=== PATIENT | male | born 2005 | race Caucasian/White ===

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

== ENCOUNTER → 2025-08-05 | Outpatient (CLI) | payer BC, SELFPAY ==
[2025-08-05 18:01] LABS: Hematocrit 46.0 % (40-54); Hemoglobin 15.3 g/dL (13.0-16.5); Mean Corp Hgb Conc 33.3 g/dL (32-36); Mean Corpuscular Volume 91.3 fL (80-94); Mean Platelet Vol. 10.7 fl (6.2-12.0); Platelet Count 213 K/mm3 (150-450); RBC Distribution Width CV 12.0 % (11.6-14.6); RBC Distribution Width SD 40.1 fl (35.1-43.9); Red Blood Count 5.04 M/mm3 (4.6-6.2); White Blood Count 6.7 K/mm3 (4.4-11.0)
[2025-08-05 18:19] LABS: AST(SGOT) 17 U/L (<=37); Alanine Aminotransfer ALT/SGPT 10 U/L (<=46); Albumin, Serum 4.6 g/dL (3.5-5.0); Alkaline Phosphatase 31 U/L (40-129); Anion Gap 12 (5-15); BUN 14 mg/dL (4-19); BUN/Creat Ratio 13.7 RATIO (10-20); Calcium,Total 9.3 mg/dL (7.6-11.0); Carbon Dioxide 23.5 mmol/L (21.0-32.0); Chloride 105 mmol/L (98-108); Globulin 2.5 g/dL (2.2-4.2); Glucose 85 mg/dL (70-99); Potassium 4.2 mmol/L (3.3-5.1)
--- OUTSIDE RECORDS SUMMARY | 2025-08-05 18:21 | XMS RPT_ITS | CCD ---
Author Organization [facility] Care Team Providers Care Deburring Technician Name Role Phone Luis Norwood DO Primary Care Provider [phone] LUIS NORWOOD Primary Care Unavailable KOTAGAL, RAVINDER Referring Unavailable Luis Norwood DO Primary Care Provider Luis Norwood DO Primary Care Provider Dr. Luis Norwood DO Primary Care Provider Dr. Vasiliy Diaz MD Attending Provider Dr. Vasiliy Diaz MD Referring Provider Dr. Luis Norwood DO Referring Provider Luis Norwood Referring Unavailable Norwood, Luis Primary Care Unavailable Vasiliy Diaz Attending Unavailable Cuco, Luis Primary Care Unavailable Vasiliy Diaz Referring Unavailable Vasiliy Diaz Attending Unavailable Vasiliy Diaz Attending Unavailable Norwood, Luis Primary Care Unavailable Vasiliy Diaz Referring Unavailable NorwoodLuis richardson Referring Unavailable Norwood, Luis Primary Care Unavailable Vasiliy Diaz Attending Unavailable Vasiliy Diaz Attending Unavailable Norwood, Luis Primary Care Unavailable Norwood, Luis Referring Unavailable Shane SOCIOCULTURAL ANTHROPOLOGY PROFESSOR.Destinee TAYLOR Unavailable Solange SOCIOCULTURAL ANTHROPOLOGY PROFESSORFatuma DEL VALLE Unavailable KOTAGAL, RAVINDER Referring Unavailable NORWOOD, LUIS L Primary Care Unavailable KOTAGAL, RAVINDER Attending Unavailable NORWOOD, LUIS L Primary Care Unavailable FREIBERWILLIAMS Mejía Attending Unavailable LUIS NORWOOD L Primary Care Unavailable Allergies Allergy Classification Reported Allergen(s) Allergy Type Date of Onset Reaction(s) Facility (20 sources) Sunscreen; Translations: [SUNSCREEN] Drug Allergy 04-04-2017 Rash, Itching [facility] Work Phone: Medications Current Medications Medication Drug Class(es) Dates Sig (Normalized) Sig (Original) cenobamate 100 mg oral tablet (3 sources) Start: 11-13-2024 End: 02-07-2025 take 1 tablet by mouth once daily Cenobamate (Xcopri) 100 mg tablet Active 100 mg PO DAILY February 07, 2025 3:28pm enteric contrast (will be provided with radiology test) (2 sources) Start: 11-16-2022 End: 11-17-2022 enteric contrast (will be provided with radiology test) For MRI ENTEROGRAPHY WO/W Administer, As Directed One Time Only, via Oral, Rectal, both Oral and Rectal, Enteric Tube, Stoma or Indwelling Catheter, Enteric Contrast as designated per enteric contrast guidelines 1 Each 0 11/16/2022 11/17/2022 Active Comment on above: For MRI ENTEROGRAPHY WO/W Administer, As Directed One Time Only, via Oral, Rectal, both Oral and Rectal, Enteric Tube, Stoma or Indwelling Catheter, Enteric Contrast as designated per enteric contrast guidelines iv contrast (will be provided with radiology test) (2 sources) Start: 11-16-2022 End: 11-17-2022 iv contrast (will be provided with radiology test) MRI Enterography Inject, intravenously, once for 1 dose. No IV access, insert saline lock prior to the beginning of sedation, infusion, injection of imaging exam. Discontinue saline lock post exam. If Pt. has a central line or IVAD, may access for administration according to line specific nursing protocol. Once exam is complete flush line and de-access according to line specific nursing protocol in the MR contrast administration guidelines link. 1 Each 0 11/16/2022 11/17/2022 Active Comment on above: MRI Enterography Inject, intravenously, once for 1 dose. No IV access, insert saline lock prior to the beginning of sedation, infusion, injection of imaging exam. Discontinue saline lock post exam. If Pt. has a central line or IVAD, may access for administration according to line specific nursing protocol. Once exam is complete flush line and de-access according to line specific nursing protocol in the MR contrast administration guidelines link. mesalamine 1200 mg delayed release oral tablet (20 sources) Aminosalicylate Start: 01-09-2024 End: 01-11-2024 take 4 tablets by mouth once daily at breakfast Mesalamine (LIALDA) 1.2 gram EC tablet Take 4 tablets by mouth daily with breakfast. 120 tablet 2 01/11/2024 Active Start: 12-07-2022 take 4 tablets by mo uth once daily at breakfast Mesalamine (LIALDA) 1.2 gram EC tablet Take 4 tablets by mouth daily with breakfast. 120 tablet 5 12/07/2022 Active Start: 11-16-2022 End: 12-05-2022 take 4 tablets by mouth once daily at breakfast Mesalamine (LIALDA) 1.2 gram EC tablet Take 4 tablets by mouth daily with breakfast. 60 tablet 1 11/16/2022 12/05/2022 Discontinued Start: 11-16-2022 End: 11-16-2022 take 2 tablets by mouth once daily at breakfast Mesalamine (LIALDA) 1.2 gram EC tablet Take 2 tablets by mouth daily with breakfast. 60 tablet 3 11/16/2022 11/16/2022 Discontinued Comment on above: Take 4 tablets by mo uth daily with breakfast. Take 2 tablets by mo uth daily with breakfast. divalproex sodium 250 mg delayed release oral tablet (20 sources) Mood Stabilizer, Anti-epileptic Agent Start: 04-07-2023 End: 02-07-2025 take 3 tablets by mouth twice daily divalproex DR (DEPAKOTE) 250 mg EC tablet Indications: Juvenile absence epilepsy (HCC) Take 3 tablets by mouth two times a day. 540 tablet 3 05/08/2024 Active Start: 03-03-2023 take 2 tablets by mo uth every [address] (DEPAKOTE) 250 mg EC tablet Take 2 tablets by mouth every 8 hours. 120 tablet 5 03/03/2023 Active Comment on above: Take 2 tablets by mo uth every 8 hours. Take 3 tablets by mo uth twice daily. Take 3 tablets by mo uth two times a day. Completed/Discontinued Medications Medication Drug Class(es) Dates Sig (Normalized) Sig (Original) Cenobamate (2 sources) Start: 11-13-2024 End: 02-07-2025 take 1 tablet by mouth once Cenobamate (Xcopri Titration Pack) 12.5 mg (14)- 25 mg (14) tablets,dose pack Discontinued 0 PO per package directions November 13, 2024 1:00am February 07, 2025 3:27pm Week 1 to 4: PO PER PKG DIR Start: 11-13-2024 take 1 tablet by mouth once Ce nobamate (Xcopri Titration Pack) 12.5 mg (14)- 25 mg (14) tablets,dose pack Active 0 PO per package directions November 13, 2024 1:00am Week 1 to 4: PO PER PKG DIR Cenobamate (2 sources) Start: 11-13-2024 End: 02-07-2025 Cenobamate (Xcopri Titration Pack) 50 mg (14)- 100 mg (14) tablets,dose pack Discontinued 0 PO per package directions November 13, 2024 1:00am February 07, 2025 3:28pm PO PER PKG DIR; began after completing 2-week course of Xcopri 25 mg daily Start: 11-13-2024 Cenobamate (Xc opri Titration Pack) 50 mg (14)- 100 mg (14) tablets,dose pack Active 0 PO per package directions November 13, 2024 1:00am PO PER PKG DIR; began after completing 2-week course of Xcopri 25 mg daily cholecalciferol 1.25 mg oral capsule (20 sources) Vitamin D Start: 10-27-2022 End: 11-11-2023 take 1 capsule by mouth every week cholecalciferol, Vitamin D3, (VITAMIN D3) 1,250 mcg (50,000 unit) cap capsule Take 1 capsule by mouth one time a week for 8 doses. 4 capsule 1 10/27/2022 11/11/2023 Discontinued Comment on above: Take 1 capsule by [facility] one time a week for 8 doses. ethosuximide 250 mg oral capsule (20 sources) Anti-epilepti c Agent Start: 10-22-2022 End: 08-08-2024 take 1 capsule by mouth twice daily Ethosuximide 250 mg capsule Discontinued 750 mg PO TWICE A DAY August 08, 2024 9:04am August 08, 2024 9:40am Start: 10-22-2022 End: 08-08-2024 take 1 capsule by mouth once daily in the evening Ethosuximide 250 mg Capsule Discontinued 500 mg PO EVERY EVENING October 22, 2022 1:00am August 08, 2024 9:05am Start: 10-22-2022 take 500 mg by mouth once daily in the evening Ethosuximide Active 500 MG PO EVERY EVENING October 22, 2022 12:00am Start: 10-22-2022 take 750 mg by mouth at breakfast Ethosuximide Active 750 MG PO WITH BREAKFAST October 22, 2022 12:00am Start: 09-01-2022 ethosuximide ( ZARONTIN) 250 mg capsule Indications: Juvenile absence epilepsy (HCC) Take 750 mg in the morning and 500 mg in the evening daily 150 capsule 5 09/01/2022 Active Start: 07-05-2022 End: 09-01-2022 take 2 capsules by mouth twice daily ethosuximide (ZARONTIN) 250 mg capsule Indications: Juvenile absence epilepsy (HCC) Take 2 capsules by mouth twice daily. 120 capsule 3 07/05/2022 09/01/2022 Discontinued Comment on above: Take 2 capsules by m outh twice daily. Take 750 mg in the m orning and 500 mg in the evening daily glucagon (rdna) 1 mg injection (20 sources) Antihypoglycemic Agent Start: End: 024 inject 1 mg intravenously once glucagon (GLUCAGEN) 1 mg/mL injection Inject 1 mg intravenously one time only for 1 dose. For MRI Enterography, Inject 1 mg intravenously, as directed. Slow push at the appropriate time during MRI Scan 1 Each 0 11/16/2022 05/08/2024 Discontinued Comment on above: Inject 1 mg intraven ously one time only for 1 dose. For MRI Enterography, Inject 1 mg intravenously, as directed. Slow push at the appropriate time during MRI Scan omeprazole 40 mg delayed release oral capsule (12 sources) Proton Pump Inhibitor Start: 023 take 1 capsule by mouth once daily before breakfast omeprazole (PRILOSEC) 40 mg capsule Indications: Ulcerative pancolitis without complication (HCC) Take 1 capsule by mouth daily before breakfast. 30 capsule 3 11/04/2022 Active Comment on above: Take 1 capsule by mo uth daily before breakfast. predniSONE 5 mg oral tablet (12 sources) Start: 023 take 8 tablets by mouth once daily predniSONE (DELTASONE) 5 mg tablet Indications: Ulcerative pancolitis without complication (HCC) Take 8 tablets by mouth once daily. Wean as advised 320 tablet 1 11/04/2022 Active Comment on above: Take 8 tablets by mo ut once daily. Wean as advised Problems Active Problems Problem Classification Problem Date Documented Da te Episodic/Chronic Adjustment disorders (1 source) Family tension; Translations: [Reaction to severe stress, unspecified] 01-11-2024 Chronic Administrative/social admission (1 source) Follow-up status; Translations: [Counseling for transition from pediatric to adult model of care] 05-08-2024 Episodic Deficiency and other anemia (4 sources) Iron deficiency anemia due to blood loss; Translations: [Iron deficiency anemia secondary to blood loss (chronic)] Chronic Epilepsy; convulsions (20 sources) Partial epilepsy with impairment of consciousness; Translations: [Localization-relat ed (focal) (partial) symptomatic epilepsy and epileptic syndromes with complex partial seizures, not intractable, without status epilepticus] Onset: 06-11-2008 05-06-2016 Chronic Gastrointestinal hemorrhage (6 sources) Hematochezia; Translations: [Melena] Episodic Immunizations and screening for infectious disease (5 sources) Patient encounter status; Translations: [Encounter for immunization] Episodic Nutritional deficiencies (20 sources) Vitamin D deficiency; Translations: [Vitamin D deficiency, unspecified] Onset: 11-16-2022 Chronic Other aftercare (2 sources) Drug therapy finding; Translations: [terminal system operator (current) use of systemic steroids] Episodic Other aftercare (2 sources) Long-term current use of mesalamine; Translations: [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 (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) drug therapy] 06-01-2023 Episodic Other gastrointestinal disorders (3 sources) Diarrhea; Translations: [Diarrhea, unspecified] Episodic Regional enteritis and ulcerative colitis (20 sources) Ulcerative pancolitis; Translations: [Ulcerative (chronic) pancolitis without complications] Onset: 11-16-2022 Chronic Residual codes; unclassified (9 sources) FH: Ulcerative colitis; Translations: [Family history of other diseases of the digestive system] 10-22-2022 Episodic Residual codes; unclassified (4 sources) Vaccination failure; Translations: [Personal history of other drug therapy] Episodic Residual codes; unclassified (1 source) Medication adherence variable; Translations: [Variable compliance with medication therapy] 06-01-2023 Episodic Residual codes; unclassified (2 sources) Noncompliance with medication regimen; Translations: [Non-adherence to medical treatment] 01-11-2024 Episodic Residual codes; unclassified (4 sources) Amnesia; Translations: [Other amnesia] 11-13-2024 Episodic Residual codes; unclassified (1 source) Other amnesia; Translations: [Other amnesia] Onset: 11-13-2024 Episodic Past or Other Problems Problem Classification Problem Date Documented Da te Episodic/Chronic Epilepsy; convulsions (6 sources) Simple febrile seizure; Translations: [Simple febrile convulsions] Onset: 02-27-2008 Resolved: 04-04-2017 04-04-2017 Episodic Results Test Name Value Interpretation Reference Range Facility [facility] 02-19-2025 [facility] Telephone (PGASMN) BISHOP SRINIVASAN ([id number]) 5 M Date Time Provider Department 02/19/25 VERENA FRANCIS [facility] During your visit today, we recorded the following information about you: Verena Francis RN 02/19/2025 4:52 PM Signed Bishop has been lost to follow up, reaching out to see if able to help arrange OV. MC message sent. POLLY Fields Lauren, RN 02/21/2025 12:36 PM Signed Placed call to Bishop with NA. ROSA on calling to check in and see if able to schedule a follow up. Provided office number and also updated MC message was sent. POLLY Fields Lauren, RN 02/26/2025 4:21 PM Signed Placed call to [phone] with NA. ROSA on requesting a return call to the office and to check mc. MC message sent. POLLY Fields Lauren, RN 03/15/2025 12:20 PM Signed Placed call to [phone] with NA. LM on updating checking in, requesting a return call to office, number provided or message. As there has not been any successful contact, called [phone], spoke with mom David, notifying calling as an outreach wondering how he was doing from an IBD perspective. She noted we would need to discuss that with him. Advised we have been unsuccessful with contact. She notes he sleeps until 300/400 in the afternoon. She will pass along the message that we called. Thanked her for her time. POLLY Fields Lauren, RN 03/28/2025 4:39 PM Signed Letter generated and sent via and US mail. 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 - Mesalamine (LIALDA) 1.2 gram EC tablet Take 4 tablets by mouth daily with breakfast. Problem List As Of Date 02/19/2025 Noted Resolved Febrile convulsions (simple), unspecified [R56.*02/27/2008 04/04/2017 Partial epilepsy with impairment of consciousne*06/11/2008 Well child check [Z00.129] 10/25/2014 Partial symptomatic epilepsy with complex parti*11/03/2015 Childhood absence epilepsy, refractory (HCC) [G*11/06/2015 Other ulcerative colitis with rectal bleeding (*11/16/2022 Vitamin D deficiency [E55.9] 11/16/2022 Letter Text Encounter Status:Closed by VERENA FRANCIS on 03/28/25 Normal [facility] Neurology Visit Reporton Neurology Visit Report [facility] [address] [place] [address] OFFICE VISIT Date of Service: 02/07/25 MR#: [id number] Acct: [id number] Name: BISHOP SRINIVASAN Rep #: [id number] : 2005 Provider: Dr. Vasiliy garcia MD Age/Sex: 19/M Location: [facility] Status: Signed with Addenda ADDENDUM by Dr. Vasiliy Diaz MD on 02/07/25 at 1642 Addendum Addendum (02/07/2025): Add to 02/07/2025 physical exam: The patient is oriented to day of the week; he is able to subtract 7 from 100; he is able to spell world backwards. 02/07/25 1642 Date Vasiliy Diaz MD cc: * Signed HPI [facility] Chief Complaint: Establish Care Details: Interim History: Bishop returns for follow-up visit. He has a history of epilepsy and ulcerative colitis. He is accompanied by his mother. He had about 3 febrile seizures between the ages of 3 years and 5 years; the seizures were generalized seizures. Around the age of 10 years he began to have absence seizures characterized by staring episodes with loss of contact with his surroundings followed by postictal confusion and lethargy. He had a preceding aura manifesting with awareness of involuntary jaw movement. These absence seizures occurred 1-4 times daily. Records indicate that a 24-hour video EEG monitoring revealed findings consistent with absence seizures. Ethosuximide was initiated and he became seizure-free. A medical record indicates that a head MRI in 2015 was unremarkable (an official full report of the study is presently not available). Ethosuximide was then discontinued following 2 years of treatment and he remained seizure-free until November 2021, when he had a breakthrough seizure. The seizure was triggered by sleep deprivation. Seizures since that time manifested as generalized clonic seizures. He did not have associated urinary incontinence. He had occasional tongue biting. The clonic activity lasted about 1 minute. He had postictal confusion and lethargy. He had a preceding aura of jaw locking and facial grimacing, prior to loss of consciousness. Ethosuximide was resumed. He apparently had several of these seizures. The breakthrough seizures were more likely to occur if he was sleep deprived and/or he missed medication doses. Ethosuximide was then switched to divalproex DR. He had 2 seizures between September 2024 and October 2024. His last seizure prior to 2024 occurred in 2021. He may have recently missed some of his divalproex DR doses. He has since been compliant with his anticonvulsant therapy. Xcopri was initiated in October 2024 and he has tolerated this well. He has had no further seizures since October 2024. 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 There is no history of JUDGE infection or concussion. He completed school in regular classes and did well academically. He is currently not employed employed. 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 He denies having any memory difficulty. He has some difficulty at times in focusing his attention. Per prior report he has remained independent in his daily activities. Mini-Mental status exam score was 29/30 in October 2024. His head MRI in December 2024 revealed a normal brain. Fluid in the left mastoid air cells was noted. He denies having left periauricular pain. His valproic acid level in October 2024 was in the therapeutic range. Physical Exam: Neuro: The patient is awake and alert and responds appropriately; speech is fluent; no drift; no tremor is noted Heart: Regular rhythm and rate Supplemental Info CBC, CMP, ammonia, thiamine, B12, folate, TSH (11/13/2024): Unremarkable. Valproic acid (11/13/2024): 84 (therapeutic range) Head MRI (12/28/2024): FINDINGS: No diffusion restriction to suggest acute/subacute ischemia. No evidence of acute intracranial hemorrhage, midline shift or mass effect. No hydrocephalus. No chronic microhemorrhage. Cerebral volume is age-appropriate. No parenchymal signal abnormalities. No MR evidence suggestive of mesial temporal sclerosis. No pathologic enhancement. Globes are intact. Paranasal sinuses are clear. Presumed fluid in the left mastoid air cells. IMPRESSION: No acute intracranial process, parenchymal signal abnormality or pathologic enhancement. These images were reviewed on 02/07/2025. Assessment and Plan Assessment and Plan (1) Epilepsy: Status: Acute Orders: Orders Valproic Acid (Depakene) Level 06/25/25 G40.909 - Epilepsy, unspecified, not intractable, without status epilepticus Comprehensive Metabolic Profil 06/25/25 G40.909 - Epilepsy, unspecified, not intractable, without status epilepticus CBC-Complete Blood Cnt No Diff 06/25/25 G40.909 - Epilepsy, unspecified, not intractable, without status epilepticus Ammonia 06/25/25 G40.909 - Epilepsy, unspecified, not intractable, without status epilepticus Medications: (more content not included)... Normal [facility] Brain W/WO Contraston 2024 Brain W/WO Contrast [facility] [address] [place] [address] Brain W/WO Contrast MR#: [id number] Acct: [id number] Name: BISHOP SRINIVASAN Rep #: [id number] : 2005 M 19 From: Jacky Soto PCP: Dr. Luis Norwood DO Status: REG CLI Study: Brain W/WO Contrast Date of Exam: 12/28/24 Exam# [id number] Ordering Dr: Vasiliy Diaz MD PROCEDURE: BRAIN W/WO CONTRAST 12/28/2024 REASON FOR EXAM: HISTORY OF GENERALIZED SEIZURES TECHNIQUE: Multisequence multiplanar MR images of the brain were obtained before and after the administration of 11 mm of Clariscan intravenous contrast. Imaging sequences were performed to best displaced suspected pathology. COMPARISON: None FINDINGS: No diffusion restriction to suggest acute/subacute ischemia. No evidence of acute intracranial hemorrhage, midline shift or mass effect. No hydrocephalus. No chronic microhemorrhage. Cerebral volume is age-appropriate. No parenchymal signal abnormalities. No MR evidence suggestive of mesial temporal sclerosis. No pathologic enhancement. Globes are intact. Paranasal sinuses are clear. Presumed fluid in the left mastoid air cells. MRI/Brain W/WO Contrast IMPRESSION: No acute intracranial process, parenchymal signal abnormality or pathologic enhancement. Reading Location: DEV CC: Dr. Luis Norwood DO; Dr. 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 Luis Norwood DO Status: RE G CLI Study:Brain W/WO Contrast Date of Exam: 12/28/24 Exam# [id number] Ordering Dr: Vasiliy Diaz MD PROCEDURE: BRAIN W/WO CONTRAST 12/28/2024 REASON FOR EXAM: HISTORY OF GENERALIZED SEIZURES TECHNIQUE: Multisequence multiplanar MR images of the brain were obtained before and after the administration of 11 mm of Clariscan intravenous contrast. Imaging sequences were performed to best displaced suspected pathology. COMPARISON: None FINDINGS: No diffusion restriction to suggest acute/subacute ischemia. No evidence of acute intracranial hemorrhage, midline shift or mass effect. No hydrocephalus. No chronic microhemorrhage. Cerebral volume is age-appropriate. No parenchymal signal abnormalities. No MR evidence suggestive of mesial temporal sclerosis. No pathologic enhancement. Globes are intact. Paranasal sinuses are clear. Presumed fluid in the left mastoid air cells. MRI/Brain W/WO Contrast IMPRESSION: No acute intracranial process, parenchymal signal abnormality or pathologic enhancement. Reading Location: DEV CC: Dr. Luis Norwood DO; Dr. 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 B1, Whole Bloodwas developed and its performance characteristicsdetermined by [facility]. It has not been cleared or approvedby the Food and Drug Administration. Result Comment: Perf ormed at: - [facility] [id number] Information Systems Professor: Ivett Pa MD, Phone: [phone] Performed By: #### L 503.0105, L3300.8000, L100.0500, L501.8100, L500.4050, L501.5200, L501.9520, L506.0250, L503.5510 ####[facility] [address] [place], [address] Albumin to globulin ratioOrd ered By: Vasiliy Diaz on 11-13-2024 Albumin/Globulin [Mass ratio] 0.9 {ratio} 0.9-2.4 [facility] Ammoniaon 11-13-2024 Ammonia (P) [Moles/Vol] 22.0 umol/L Normal 11-32 [facility] Comment on above: Performed By: #### L 503.0105, L3300.8000, L100.0500, L501.8100, L500.4050, L501.5200, L501.9520, L506.0250, L503.5510 #### [facility] [address] [place], [place], [id number] Bilirubin, totalOrdered By: Vasiliy Diaz on 11-13-2024 Bilirubin [Mass/Vol] 0.80 mg/dL 0.20-1.00 [facility] Comment on above: For patients on eltr ombopag therapy, use of Dimension [place] TBIL is not recommended. Blood urea nitrogen (BUN)/cr eatinine ratioOrdered By: Vasiliy Diaz on 11-13-2024 Urea nitrogen/Creatinine [Mass ratio] 19.0 mg/mg 10- [facility] CBC-Complete Blood Cnt No Di ffon 11-13-2024 Erythrocyte distribution width (RBC) [Ratio] 12.1 % Normal 11.6-14.6 [facility] Comment on above: Performed By: #### L 503.0105, L3300.8000, L100.0500, L501.8100, L500.4050, L501.5200, L501.9520, L506.0250, L503.5510 #### [facility] [address] [place], [address] Hematocrit (Bld) [Volume fraction] 46.0 % Normal 40-54 [facility] Comment on above: Performed By: #### L 503.0105, L3300.8000, L100.0500, L501.8100, L500.4050, L501.5200, L501.9520, L506.0250, L503.5510 #### [facility] [address] [place], [address] Hemoglobin (Bld) [Mass/Vol] 15.3 g/dL Normal 13.0-16.5 [facility] Comment on above: Performed By: #### L 503.0105, L3300.8000, L100.0500, L501.8100, L500.4050, L501.5200, L501.9520, L506.0250, L503.5510 #### [facility] [address] [place], [address] MCH (RBC) [Entitic mass] 29.6 pg Normal 27.0-32.0 [facility] Comment on above: Performed By: #### L 503.0105, L3300.8000, L100.0500, L501.8100, L500.4050, L501.5200, L501.9520, L506.0250, L503.5510 #### [facility] [address] [place], [address] MCHC (RBC) [Mass/Vol] 33.3 g/dL Normal 32-36 [facility] Comment on above: Performed By: #### L 503.0105, L3300.8000, L100.0500, L501.8100, L500.4050, L501.5200, L501.9520, L506.0250, L503.5510 #### [facility] [address] [place], [address] MCV (RBC) [Entitic vol] 89.0 fL Normal 80-94 [facility] Comment on above: Performed By: #### L 503.0105, L3300.8000, L100.0500, L501.8100, L500.4050, L501.5200, L501.9520, L506.0250, L503.5510 #### [facility] [address] [place], [address] Platelet mean volume (Bld) [Entitic vol] 10.5 fL Normal 6.2-12.0 [facility] Comment on above: Performed By: #### L 503.0105, L3300.8000, L100.0500, L501.8100, L500.4050, L501.5200, L501.9520, L506.0250, L503.5510 #### [facility] [address] [place], [address] Platelets (Bld) [#/Vol] 215 10*3/uL Normal 150-450 [facility] Comment on above: Performed By: #### L 503.0105, L3300.8000, L100.0500, L501.8100, L500.4050, L501.5200, L501.9520, L506.0250, L503.5510 #### [facility] [address] [place], [address] RBC (Bld) [#/Vol] 5.17 10*6/uL Normal 4.6-6.2 [facility] Comment on above: Performed By: #### L 503.0105, L3300.8000, L100.0500, L501.8100, L500.4050, L501.5200, L501.9520, L506.0250, L503.5510 #### [facility] [address] [place], [address] RDW SD 39.7 fl Normal 35.1-43.9 [facility] Comment on above: Performed By: #### L 503.0105, L3300.8000, L100.0500, L501.8100, L500.4050, L501.5200, L501.9520, L506.0250, L503.5510 #### [facility] [address] [place], [place], [id number] WBC (Bld) [#/Vol] 6.2 10*3/uL Normal 4.4-11.0 [facility] Comment on above: Performed By: #### L 503.0105, L3300.8000, L100.0500, L501.8100, L500.4050, L501.5200, L501.9520, L506.0250, L503.5510 #### [facility] [address] [place], [address] Carbon dioxide measurementOr dered By: aVsiliy Diaz on 11-13-2024 CO2 [Moles/Vol] 27.0 mmol/L 21.0-32.0 [facility] Chloride measurementOrdered By: Vasiliy Diaz on 11-13-2024 Chloride [Moles/Vol] 107 mmol/L 98-107 [facility] Comprehensive Metabolic Prof ilon 11-13-2024 Albumin [Mass/Vol] 3.8 g/dL Normal 3.2-5.0 [facility] Comment on above: Performed By: #### L 503.0105, L3300.8000, L100.0500, L501.8100, L500.4050, L501.5200, L501.9520, L506.0250, L503.5510 #### [facility] [address] [place], [place], [id number] [phone] Albumin/Globulin [Mass ratio] 0.9 {ratio} Normal 0.9-2.4 [facility] Comment on above: Performed By: #### L 503.0105, L3300.8000, L100.0500, L501.8100, L500.4050, L501.5200, L501.9520, L506.0250, L503.5510 #### [facility] [address] [place], [address] ALK P 27 U/L Low 45-117 [facility] Comment on above: Performed By: #### L 503.0105, L3300.8000, L100.0500, L501.8100, L500.4050, L501.5200, L501.9520, L506.0250, L503.5510 #### [facility] [address] [place], [address] ALT [Catalytic activity/Vol] 16 U/L Normal 16-61 [facility] Comment on above: Performed By: #### L 503.0105, L3300.8000, L100.0500, L501.8100, L500.4050, L501.5200, L501.9520, L506.0250, L503.5510 #### [facility] [address] [place], [place], [id number] AST [Catalytic activity/Vol] 14 U/L Low 15-37 [facility] Comment on above: Performed By: #### L 503.0105, L3300.8000, L100.0500, L501.8100, L500.4050, L501.5200, L501.9520, L506.0250, L503.5510 #### [facility] [address] [place], [address] Bilirubin [Mass/Vol] 0.80 mg/dL Normal 0.20-1.00 [facility] Comment on above: Result Comment: For patients on eltrombopag therapy, use of Dimension Avon TBIL is not recommended. Performed By: #### L 503.0105, L3300.8000, L100.0500, L501.8100, L500.4050, L501.5200, L501.9520, L506.0250, L503.5510 #### [facility] [address] [place], [address] BUN/CRE 19.0 RATIO Normal 10-20 [facility] Comment on above: Performed By: #### L 503.0105, L3300.8000, L100.0500, L501.8100, L500.4050, L501.5200, L501.9520, L506.0250, L503.5510 #### [facility] [address] [place], [address] CA,Total 9.0 mg/dL Normal 8.5-10.1 [facility] Comment on above: Performed By: #### L 503.0105, L3300.8000, L100.0500, L501.8100, L500.4050, L501.5200, L501.9520, L506.0250, L503.5510 #### [facility] [address] [place], [place], [id number] (569) Chloride [Moles/Vol] 107 mmol/L Normal 98-107 [facility] Comment on above: Performed By: #### L 503.0105, L3300.8000, L100.0500, L501.8100, L500.4050, L501.5200, L501.9520, L506.0250, L503.5510 #### [facility] [address] [place], [address] CO2 [Moles/Vol] 27.0 mmol/L Normal 21.0-32.0 [facility] Comment on above: Performed By: #### L 503.0105, L3300.8000, L100.0500, L501.8100, L500.4050, L501.5200, L501.9520, L506.0250, L503.5510 #### [facility] [address] [place], [address] Creatinine [Mass/Vol] 0.95 mg/dL Normal 0.70-1.30 [facility] Comment on above: Result Comment: The validity of the calculated GFR GFRAA in patients over 70 years has not been determined. Clinical correlation is essential. Performed By: #### L 503.0105, L3300.8000, L100.0500, L501.8100, L500.4050, L501.5200, L501.9520, L506.0250, L503.5510 #### [facility] [address] [place], [place], [id number] (056) EST GFR - AA 131 mL/min Normal >60 [facility] Comment on above: Result Comment: Afri can Austrian GFR Calc Performed By: #### L 503.0105, L3300.8000, L100.0500, L501.8100, L500.4050, L501.5200, L501.9520, L506.0250, L503.5510 #### [facility] [address] [place], [place], [phone] (316) GAP 5 Normal 5-15 [facility] Comment on above: Performed By: #### L 503.0105, L3300.8000, L100.0500, L501.8100, L500.4050, L501.5200, L501.9520, L506.0250, L503.5510 #### [facility] [address] [place], [place], [id number] (836) GFR/1.73 sq M.predicted among non-blacks MDRD (S/P/Bld) [Vol rate/Area] 108 mL/min/{1.73_m2} Normal >60 [facility] Comment on above: Result Comment: Non- GFR Calc Performed By: #### L 503.0105, L3300.8000, L100.0500, L501.8100, L500.4050, L501.5200, L501.9520, L506.0250, L503.5510 #### [facility] [address] [place], [place], [id number] (716) Globulin (S) [Mass/Vol] 4.2 g/dL Normal 2.2-4.2 [facility] Comment on above: Performed By: #### L 503.0105, L3300.8000, L100.0500, L501.8100, L500.4050, L501.5200, L501.9520, L506.0250, L503.5510 #### [facility] [address] [place], [address] Glucose [Mass/Vol] 81 mg/dL Normal 74-106 [facility] Comment on above: Performed By: #### L 503.0105, L3300.8000, L100.0500, L501.8100, L500.4050, L501.5200, L501.9520, L506.0250, L503.5510 #### [facility] [address] [place], [address] Potassium [Moles/Vol] 4.1 mmol/L Normal 3.5-5.1 [facility] Comment on above: Performed By: #### L 503.0105, L3300.8000, L100.0500, L501.8100, L500.4050, L501.5200, L501.9520, L506.0250, L503.5510 #### [facility] [address] [place], [address] Sodium [Moles/Vol] 139 mmol/L Normal 136-145 [facility] Comment on above: Performed By: #### L 503.0105, L3300.8000, L100.0500, L501.8100, L500.4050, L501.5200, L501.9520, L506.0250, L503.5510 #### [facility] [address] [place], [address] T PROT 8.0 g/dL Normal 6.4-8.2 [facility] Comment on above: Performed By: #### L 503.0105, L3300.8000, L100.0500, L501.8100, L500.4050, L501.5200, L501.9520, L506.0250, L503.5510 #### [facility] [address] [place], [address] Urea nitrogen [Mass/Vol] 18 mg/dL Normal - [facility] Comment on above: Performed By: #### L 503.0105, L3300.8000, L100.0500, L501.8100, L500.4050, L501.5200, L501.9520, L506.0250, L503.5510 #### [facility] [address] [place], [address] Erythrocyte distribution wid th (RBC) [Ratio]Ordered By: Vasiliy Diaz on 11-13-2024 Erythrocyte distribution width (RBC) [Entitic vol] 39.7 fL 35.1-43.9 [facility] Erythrocyte distribution wid th ratioOrdered By: Vasiliy Diaz on 11-13-2024 Erythrocyte distribution width (RBC) [Ratio] 12.1 % 11.6-14.6 [facility] Erythrocyte distribution wid th standard deviationOrdered By: Vasiliybhaskar Diaz on 11-13-2024 Erythrocyte distribution width (RBC) [Ratio] 39.7 fl 35.1-43.9 [facility] Estimated glomerular filtrat ion rate (GFR) AmericanOrdered By: Vasiliy Diaz on 11-13-2024 Estimated GFR (MDRD) Amer 131 mL/min >60 [facility] Comment on above: GFR Calc Folates, (Folic Acid)on 10-27 FOLATES 11.40 ng/mL Normal 3.1-55.4 [facility] Comment on above: Order Comment: N Performed By: #### L 503.0105, L3300.8000, L100.0500, L501.8100, L500.4050, L501.5200, L501.9520, L506.0250, L503.5510 #### [facility] [address] [place], [address] Folic acid measurementOrdere d By: Vasiliy Diaz on 11-13-2024 Folate 11.40 ng/mL 3.1-55.4 [facility] Glomerular filtration rate ( GFR) estimationOrdered By: Vasiliy Diaz on 11-13-2024 Estimated GFR (MDRD) Non-Af Amer 108 mL/min >60 [facility] Comment on above: Non- GFR Calc GFR/1.73 sq M.predicted among non-blacks MDRD (S/P/Bld) [Vol rate/Area] 108 mL/min/{1.73_m2} >60 [facility] Comment on above: Non- GFR Calc Glucose measurementOrdered B y: Vasiliy Diaz on 11-13-2024 Glucose [Mass/Vol] 81 mg/dL 74-106 [facility] Hematocrit Auto (Bld) [Volum e fraction]Ordered By: Vasiliy Bannerмария on 11-13-2024 Hematocrit (Bld) [Volume fraction] 46.0 % 40-54 [facility] Hemoglobin measurementOrdere d By: Vasiliybhaskar Diaz on 11-13-2024 Hemoglobin (Bld) [Mass/Vol] 15.3 g/dL 13.0-16.5 [facility] - Chemistry and C hemistry - challengeOrdered By: Vasiliy Bannerмария on 11-13-2024 AST [Catalytic activity/Vol] 14 U/L Low 15-37 [facility] MCV (mean corpuscular volume ) determinationOrdered By: Vasiliy Bannerмария on 11-13-2024 MCV (RBC) [Entitic vol] 89.0 fL 80-94 [facility] Magnesiumon 11-13-2024 Magnesium [Mass/Vol] 2.1 mg/dL Normal 1.6-2.6 [facility] Comment on above: Performed By: #### L 503.0105, L3300.8000, L100.0500, L501.8100, L500.4050, L501.5200, L501.9520, L506.0250, L503.5510 #### [facility] [address] [place], [place], [id number] Magnesium measurementOrdered By: Vasiliy Diaz on 11-13-2024 Magnesium [Mass/Vol] 2.1 mg/dL 1.6-2.6 [facility] Mean corpuscular hemoglobin (MCH) determinationOrdered By: Vasiliy Diaz on 11-13-2024 MCH (RBC) [Entitic mass] 29.6 pg 27.0-32.0 [facility] Mean corpuscular hemoglobin concentration (MCHC) determinationOrdered By: Vasiliy Diaz on 11-13-2024 MCHC (RBC) [Mass/Vol] 33.3 g/dL 32-36 [facility] Mean platelet volume determi nationOrdered By: Vasiliy Diaz on 11-13-2024 Platelet mean volume (Bld) [Entitic vol] 10.5 fL 6.2-12.0 [facility] Neurology Visit Reporton Neurology Visit Report [facility] [address], [address] [place] [address] OFFICE VISIT Date of Service: 11/13/24 MR#: [id number] Acct: [id number] Name: BISHOP SRINIVASAN Rep #: [id number] : 2005 Provider: Dr. Vasiliy garcia MD Age/Sex: 19/M Location: [facility] Status: Signed HPI HPI Chief Complaint: Establish Care Details: Interim History: Bishop returns for follow-up visit. He has a history of epilepsy and ulcerative colitis. He is accompanied by his mother. He had about 3 febrile seizures between the ages of 3 years and 5 years; the seizures were generalized seizures. Around the age of 10 years he began to have absence seizures characterized by staring episodes with loss of contact with his surroundings followed by postictal confusion and lethargy. He had a preceding aura manifesting with awareness of involuntary jaw movement. These absence seizures occurred 1-4 times daily. Records indicate that a 24-hour video EEG monitoring revealed findings consistent with absence seizures. Ethosuximide was initiated and he became seizure-free. A medical record indicates that a head MRI in 2016 was unremarkable (an official full report of the study is presently not available). Ethosuximide was then discontinued following 2 years of treatment and he remained seizure-free until November 2021, when he had a breakthrough seizure. The seizure was triggered by sleep deprivation. Seizures since that time manifested as generalized clonic seizures. He did not have associated urinary incontinence. He had occasional tongue biting. The clonic activity lasted about 1 minute. He had postictal confusion and lethargy. He had a preceding aura of jaw locking and facial grimacing, prior to loss of consciousness. Ethosuximide was resumed. He apparently had several of these seizures. The breakthrough seizures were more likely to occur if he was sleep deprived and/or he missed medication doses. Ethosuximide was then switched to divalproex DR. He has had 2 seizures within the past 3 weeks the last of which occurred on 11/08/2024. His last seizure prior to the 2 seizures within the past 3 weeks occurred around 2021. He may have recently missed some of his divalproex DR doses. 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 There is no history of JUDGE infection or concussion. He completed school in regular classes and did well academically. He is currently not employed employed. 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 He is tolerating divalproex DR well. He reports having some forgetfulness manifesting with not recalling recent conversations or some recent events. He remains independent in his daily activities. 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 Video EEG monitoring (11/03-06/11): Interictal: 3 Hz spike-wave complex, generalized, maximum left hemisphere Ictal: EEG seizure, generalized, maximum left hemisphere Clinical seizure: Typical dialeptic seizure Multiple seizures lasting 5-10 seconds were recorded consisting of behavioral or speech arrest which immediately resumes after EEG changes ceased. During some, he has rhythmic jaw twitching, and into seizures he notes that he felt this at the end and signifies this to his mother. 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 Several bursts (all less than 10 seconds) of 3 Hz spike and wave complex were recorded, many with typical dialeptic seizure with behavioral arrest and some jaw twitching, often in clusters. He also has had focal slowing and sharp transients in the left temporal region. The generalized spike-wave complexes were often higher over the left hemisphere; on occasion, a lead in from the left was observed. The background rhythms are normal. Head MRI (11/03/2015): Normal (this is from an office note; not a full MRI report) Multihour EEG (01/06/2016): Intermittent slow, lateralized left hemisphere, maximal temporal. EEG 07/05/2022: Eric and wave complex, generalized, maximum, bifrontal. 3 brief 2-3-second long episodes of 2.5 Hz generalized spike and wave discharges occurring during the recording. CBC, CMP (10/22/2022): Unremarkable. EEG 11/10/2023: Findings: 9 to 10 Hz posterior background, symmetric. Photic driving: Bilateral posterior head regions, symmetric. Hyperventilation (more content not included)... Normal [facility] Platelet countOrdered By: Ra sal Diaz on 11-13-2024 Platelets (Bld) [#/Vol] 215 10*3/uL 150-450 [facility] Potassium measurementOrdered By: Vasiliy Diaz on 11-13-2024 Potassium [Moles/Vol] 4.1 mmol/L 3.5-5.1 [facility] RBC Auto (Bld) [#/Vol]Ordere d By: Vasiliy Diaz on 11-13-2024 RBC (Bld) [#/Vol] 5.17 10*6/uL 4.6-6.2 [facility] Serum anion gap measurementO rdered By: Vasiliy Diaz on 11-13-2024 Anion gap [Moles/Vol] 5 mmol/L 5-15 [facility] Serum globulin measurementOr dered By: Vasiliy Diaz on 11-13-2024 Globulin (S) [Mass/Vol] 4.2 g/dL 2.2-4.2 [facility] Serum or plasma alanine canales otransferase (ALT) measurementOrdered By: Vasiliy Diaz on 11-13-2024 ALT [Catalytic activity/Vol] 16 U/L 16-61 [facility] Serum or plasma albumin meredith urement (mass/volume)Ordered By: Vasiliy Diaz on 11-13-2024 Albumin [Mass/Vol] 3.8 g/dL 3.2-5.0 [facility] Serum or plasma alkaline live sphatase measurementOrdered By: Vasiliy Diaz on 11-13-2024 ALP [Catalytic activity/Vol] 27 U/L Low 45-117 [facility] Serum or plasma calcium meredith urement (mass/volume)Ordered By: Vasiliy Diaz 11-13-2024 Calcium [Mass/Vol] 9.0 mg/dL 8.5-10.1 [facility] Serum or plasma creatinine m easurement (mass/volume)Ordered By: Vasiliy Diaz 11-13-2024 Creatinine [Mass/Vol] 0.95 mg/dL 0.70-1.30 [facility] Comment on above: The validity of the calculated GFR & GFRAA in patients over 70 years has not been determined. Clinical correlation is essential. Serum or plasma thiamine kayla surement (mass/volume)Ordered By: Vasiliy Diaz 11-13-2024 Thiamine [Mass/Vol] 117.5 nmol/L 66.5-200.0 [facility] Comment on above: Performed at: [address] [id number] Director: Ivett Pa MD, Phone: [phone] Serum or plasma thyroid stim ulating hormone (TSH) measurement (units/volume)Ordered By: Vasiliy Diaz 11-13-2024 TSH Qn 1.740 uIU/mL 0.358-3.740 [facility] Serum or plasma urea nitroge n measurement (mass/volume)Ordered By: Vasiliy Diaz 11-13-2024 Urea nitrogen [Mass/Vol] 18 mg/dL 7-18 [facility] Sodium levelOrdered By: Lu Diaz 11-13-2024 Sodium [Moles/Vol] 139 mmol/L 136-145 [facility] TSH QnOrdered By: Vasiliy ross on 11-13-2024 Thyroid Stimulating Hormone (TSH) 1.740 uIU/mL 0.358-3.740 [facility] Thiamine [Mass/Vol]Ordered B y: Vasiliy Diaz on 11-13-2024 Whole Blood Vitamin B1 Level 117.5 nmol/L 66.5-200.0 [facility] Comment on above: Performed at: [address] [id number] Director: Ivett Pa MD, Phone: [phone] Thyroid Stim Hormone (TSH)on 11-13-2024 TSH 1.740 uIU/mL Normal 0.358-3.740 [facility] Comment on above: Performed By: #### L 503.0105, L3300.8000, L100.0500, L501.8100, L500.4050, L501.5200, L501.9520, L506.0250, L503.5510 #### [facility] [address] [place], [place], [id number] Total proteinOrdered By: Dmitriy Diaz on 11-13-2024 Protein [Mass/Vol] 8.0 g/dL 6.4-8.2 [facility] Valproate levelOrdered By: Fco Diaz on 11-13-2024 Valproic Acid (Depakene) Level 84 ug/mL 50-100 [facility] Valproic Acid (Depakene) Lev tea 11-13-2024 VALPROIC ACID 84 ug/mL Normal 50-100 [facility] Comment on above: Performed By: #### L 503.0105, L3300.8000, L100.0500, L501.8100, L500.4050, L501.5200, L501.9520, L506.0250, L503.5510 #### [facility] [address] [place], [place], [id number] Venous blood ammonia measure mentOrdered By: Vasiliy Diaz on 11-13-2024 Ammonia (P) [Moles/Vol] 22.0 umol/L -32 [facility] Vitamin B12on 11-13-2024 Cobalamin (Vitamin B12) [Mass/Vol] 508 pg/mL Normal -911 [facility] Comment on above: Performed By: #### L 503.0105, L3300.8000, L100.0500, L501.8100, L500.4050, L501.5200, L501.9520, L506.0250, L503.5510 ####[facility] [id number] [place], [place], [id number] Vitamin B12 measurementOrder ed By: Vasiliy Diaz on 11-13-2024 Cobalamin (Vitamin B12) [Mass/Vol] 508 pg/mL [facility] White blood cell (WBC) count Ordered By: Vasiliy Diaz on 11-13-2024 WBC (Bld) [#/Vol] 6.2 10*3/uL 4.4-11.0 [facility] Neurology Visit Reporton Neurology Visit Report [facility] [address], [address] [place] [address] OFFICE VISIT Date of Service: 08/08/24 MR#: [id number] Acct: [id number] Name: BISHOP SRINIVASAN Rep #: [id number] : 2005 Provider: Dr. Vasiliy garcia MD Age/Sex: 19/M Location: [facility] Status: Signed [facility] Chief Complaint: Establish Care Details: History: The patient is a 19-year-old right-handed male with a past medical history of epilepsy and ulcerative colitis who presents for evaluation of epilepsy. He is accompanied by his mother. The patient had about 3 febrile seizures between the ages of 3 years and 5 years; the seizures were generalized seizures. Around the age of 10 years he began to have absence seizures characterized by staring episodes with loss of contact with his surroundings followed by postictal confusion and lethargy. He had a preceding aura manifesting with awareness of involuntary jaw movement. These absence seizure's occurred 1-4 times daily. Records indicate that a 24-hour video EEG monitoring revealed findings consistent with absence seizure's. Ethosuximide was initiated and he became seizure-free. The medical record indicates that a head MRI in 2016 was unremarkable (an official full report of the study is presently not available). Ethosuximide was then discontinued following 2 years of treatment and the patient remained seizure-free until November 2021 when he had a breakthrough seizure. The seizure was triggered by sleep deprivation. Seizures since that time manifested as generalized clonic seizures. He did not have associated urinary incontinence. He had occasional tongue biting. The clonic activity lasted about 1 minute. He had postictal confusion and lethargy. He had a preceding aura of jaw locking and facial grimacing, prior to loss of consciousness. Ethosuximide was resumed. He apparently had several of these seizures. The breakthrough seizures were to occur if he was sleep deprived and/or he missed medication doses. Ethosuximide was then switched to divalproex DR. His last seizure occurred around 2021. 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 There is no history of JUDGE infection or concussion. He completed school in regular classes and did well academically. He is employed and drives. He is tolerating divalproex DR well. Past Medical History: As above. There is no history of hypertension, diabetes mellitus, heart disease, lung disease, stroke, thyroid disease, cancer, renal disease, sleep apnea, or hyperlipidemia. Social History: There is no history of smoking tobacco. There is no history of alcohol abuse or illicit drug use. The patient graduated from high school. He works at [employer]. Family History: The patient's great-grandmother had a stroke. There is no family history of seizure or cerebral aneurysm. Review of Systems: As above. The patient has not had any recent fever, weight change, chest pain, shortness of breath, or urinary problems. He denies having depression, anxiety or sleep disturbance. He experiences occasional abdominal pain, diarrhea, and constipation. Physical Exam: General: Well-developed, well-nourished male in no acute distress. Neuro: The patient is awake and alert and responds appropriately; speech is fluent; language function is within normal limits Cranial nerves: PERRL, 3-4mm bilaterally; EOMI; visual moon are full; visual acuity is 20/20 on the left and 20/25 on the right; face is symmetrical; tongue is midline; there are no deficits to pinprick Cerebellar system: No nystagmus or dysmetria Deep tendon reflexes: Absent at the knees and ankles; plantar responses are downward bilaterally Motor: Strength 5/5 in the biceps bilaterally, abductor pollicis brevis muscles bilaterally, first dorsal interosseous muscles bilaterally, quadriceps bilaterally and foot dorsiflexors bilaterally; no drift Sensory: There are no deficits to soft touch, vibration or pinprick Gait: Unremarkable HEENT: Normocephalic; atraumatic; tympanic membranes are clear Neck: No bruits Heart: Regular rhythm and rate Extremities: No cyanosis or edema; dorsalis pedis pulses are +2 bilaterally Supplemental Info From office note: Brain MRI (2007): Normal per report, review of images: 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 Video EEG monitoring (11/03-06/11): Interictal: 3 Hz spike-wave complex, generalized, maximum left hemisphere Ictal: EEG seizure, generalized, maximum left hemisphere Clinical seizure: Typical dialeptic seizure Multiple seizures lasting 5-10 seconds were recorded consisting of behavioral or speech arrest which immediately resumes after EEG changes ceas (more content not included)... [facility] Office Visit (NEPEMN ) BISHOP SRINIVASAN ([id number]) 5 M Date Time Provider Department 05/08/24 11:10 AM RAVINDER DE LOS SANTOS During your visit today, we recorded the following information about you: Temperature Pulse Respiration Blood pressure 98.9 degrees 86/minute 20/minute 130/70 Weight Height 58.2 kg 1.734 m Ravinder De Los Santos MD 05/08/2024 12:00 PM Signed [facility] Pediatric Epilepsy Date of Service: 05/08/2024 EPILEPSY CENTER - RETURN VISIT Last epilepsy visit: 11/11/2023 The patient was accompanied during the visit by the: mother REASON(S) FOR VISIT: Followup Classification Summary HISTORY OF PRESENTING ILLNESS Handedness: right-handed Age at onset of symptoms / seizures: 10 years Bishop is a 17-year-old right-handed young man, initially seen in [address] Feliciano Hines for febrile seizures between the ages of 3-5 years which manifested as bilateral convulsive activity. He had about 3 such seizures and stopped by 5 years of age. Around 10 yrs of age, he began having brief episodes of staring which were described as awareness of his his jaw moving up and down, followed by staring blankly, confusion and unresponsiveness, lasting around 30 seconds, occurring 1-4 times/day. He was seen by Dr. Lupillo Sun in September 2015, then admitted for 24-hour VEEG monitoring which showed he was having typical absence seizures. Ethosuximide was started after which he became seizure free. Dr. Porras last saw him in August 2016. He came off Ethosuximide after a couple of years (unclear how it was decided), then remained seizure free until this year. In November this year, after a night of poor sleep, Mom reports that he came out of the shower with his towel on but still wet, agitated, shivering, staring and walking in circles but not fully responsive for a couple of minutes. There were no eye blinking/rolling, oroalimentary or manual automatisms seen. Afterwards was tired and went to sleep.This was attributed to lack of sleep and breaking up with his girlfriend. On May 29, he had a second similar episode, again after lack of sleep. Mom heard a vocalization and found him standing in his bedroom, was staring and not resonding. He said Mommy once was repetitively moving his right arm. He recovered slowly after a couple of minutes and felt better after taking a nap for few hours. A third episode occurred a couple of weeks later described as losing muscle strength in his face and jaw and feeling weird. This feeling also preceded the previous 2 episodes. INTERVAL HISTORY Bishop was last seen by me in October 2023. He has done well on Depakote, now taking 750 mg bid. He continues to be seizure free clinically without any absence seizures. No side effects are reported. 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 His recent lab was drawn 2-3 hours post dose (peak level). Goes to bed around 1 am and gets up around 12 noon. REVIEW OF SYSTEMS: The family did not report additional concerns. There were no symptoms suggestive of cardiac, gastrointestinal, or endocrinal dysfunction. No abnormal skin findings. No symptoms suggestive of respiratory, genitourinary or musculoskeletal dysfunction. SEIZURE / EPISODE TYPE(S) ASSOCIATED CONDITIONS, DEVELOPMENTAL HISTORY, AND SCHOOL Early developmental milestones appear to have been normal. [employer]; not sure about future plans ANTISEIZURE THERAPIES CURRENT ANTISEIZURE THERAPIES Depakote 750 mg bid His most recent lab was drawn 2-3 hours post dose (peak level). ANTISEIZURE MEDICATION LEVELS (LAST 3) Latest Ref Rng AND Units 05/07/2024 11/14/2023 07/07/2023 Antiseizure Med Levels Valproic Acid 50.0 - 100.0 ug/mL 108.0 63.8 32.0 PRIOR/CURRENT ANTISEIZURE THERAPIES Ethosuximide Valproate Current Outpatient Medications Medication Sig Mesalamine (LIALDA) 1.2 gram EC tablet Take 4 tablets by mouth daily with breakfast. divalproex DR (DEPAKOTE) 250 mg EC tablet Take 3 tablets by mouth two times a day. glucagon (GLUCAGEN) 1 mg/mL injection Inject 1 mg intravenously one time only for 1 dose. For MRI Enterography, Inject 1 mg intravenously, as directed. Slow push at the appropriate time during MRI Scan No current facility-administered medications for this visit. ALLERGIES Allergen Reactions Sunscreen Rash, Itching Equate brand PATIENT-ENTERED DATA: No Data Recorded No data to display SOCIAL HISTORY Mom 41 yrs, has ulcerative colitis, anxiety, hpertension, eczema Dad 47 yrs Parents are Has 2 half-brothers (not related). No family history of seizures PREVIOUS EPILEPSY EVALUATIONS: VEEG monitoring November 03-2015: Interictal: 3 Hz Eric Wave Complex, Generalized, Maximum Left Hemisphere Ictal: EEG seizure, Generalized, Maximum Left Hemisphere (more content not included)... Normal [facility] CBC W Auto Differential pane l (Bld)on 05-07-2024 Basophils (Bld) [#/Vol] 0.06 10*3/uL Normal <0.11 [facility] Comment on above: Order Comment: Speci men Type: BLOOD SPECIMEN Ordering Facility: [facility] Address: [address] [place] [address] Performed By: #### 5 7021-8 #### [facility] CLIA [id number] [address] [place] [address] [place] Basophils/100 WBC (Bld) 0.7 % Normal [facility] Comment on above: Order Comment: Speci men Type: BLOOD SPECIMEN Ordering Facility: [facility] Address: [address] [place] [address] Performed By: #### 5 7021-8 #### [facility] CLIA [id number] [address] [place] [address] [place] Differential cell count method Nom (Bld) Auto Normal [facility] Comment on above: Order Comment: Speci men Type: BLOOD SPECIMEN Ordering Facility: [facility] Address: [address] [place] [address] Performed By: #### 5 7021-8 #### [facility] CLIA [id number] [address] [place] [address] [place] Eosinophils (Bld) [#/Vol] 0.15 10*3/uL Normal <0.46 [facility] Comment on above: Order Comment: Speci men Type: BLOOD SPECIMEN Ordering Facility: [facility] Address: [address] [place] [address] Performed By: #### 5 7021-8 #### [facility] CLIA [id number] [address] [place] [address] [place] Eosinophils/100 WBC (Bld) 1.8 % Normal [facility] Comment on above: Order Comment: Speci men Type: BLOOD SPECIMEN Ordering Facility: [facility] Address: [address] [place] [address] Performed By: #### 5 7021-8 #### [facility] CLIA [id number] [address] [place] [address] [place] Erythrocyte distribution width (RBC) [Ratio] 12.2 % Normal 11.5-15.0 [facility] Comment on above: Order Comment: Speci men Type: BLOOD SPECIMEN Ordering Facility: [facility] Address: [address] [place] [address] Performed By: #### 5 7021-8 #### [facility] CLIA [id number] [address] [place] [address] [place] Hematocrit (Bld) [Volume fraction] 44.2 % Normal 39.0-51.0 [facility] Comment on above: Order Comment: Speci men Type: BLOOD SPECIMEN Ordering Facility: [facility] Address: [address] [place] [address] Performed By: #### 5 7021-8 #### [facility] CLIA [id number] [address] [place] [address] [place] Hemoglobin (Bld) [Mass/Vol] 14.4 g/dL Normal 13.0-17.0 [facility] Comment on above: Order Comment: Speci men Type: BLOOD SPECIMEN Ordering Facility: [facility] Address: [address] [place] [address] Performed By: #### 5 7021-8 #### [facility] CLIA [id number] [address] [place] [address] [place] Immature granulocytes (Bld) [#/Vol] 10*3/uL Normal <0.10 [facility] Comment on above: Order Comment: Speci men Type: BLOOD SPECIMEN Ordering Facility: [facility] Address: [address] [place] [address] Performed By: #### 5 7021-8 #### [facility] CLIA [id number] [address] [place] [address] [place] Immature granulocytes/100 WBC (Bld) 0.2 % Normal [facility] Comment on above: Order Comment: Speci men Type: BLOOD SPECIMEN Ordering Facility: [facility] Address: [address] [place] [address] Performed By: #### 5 7021-8 #### [facility] CLIA [id number] [address] [place] [address] [place] Lymphocytes (Bld) [#/Vol] 1.99 10*3/uL Normal 1.00-4.00 [facility] Comment on above: Order Comment: Speci men Type: BLOOD SPECIMEN Ordering Facility: [facility] Address: [address] [place] [address] Performed By: #### 5 7021-8 #### [facility] CLIA [id number] [address] [place] [address] [place] Lymphocytes/100 WBC (Bld) 24.2 % Normal [facility] Comment on above: Order Comment: Speci men Type: BLOOD SPECIMEN Ordering Facility: [facility] Address: [address] [place] [address] Performed By: #### 5 7021-8 #### [facility] CLIA [id number] [address] [place] [address] [place] MCH (RBC) [Entitic mass] 29.8 pg Normal 26.0-34.0 [facility] Comment on above: Order Comment: Speci men Type: BLOOD SPECIMEN Ordering Facility: [facility] Address: [address] [place] [address] Performed By: #### 5 7021-8 #### [facility] CLIA [id number] [address] [place] [address] [place] MCHC (RBC) [Mass/Vol] 32.6 g/dL Normal 30.5-36.0 [facility] Comment on above: Order Comment: Speci men Type: BLOOD SPECIMEN Ordering Facility: [facility] Address: [address] [place] [address] Performed By: #### 5 7021-8 #### [facility] CLIA [id number] [address] [place] [address] [place] MCV (RBC) [Entitic vol] 91.3 fL Normal 80.0-100.0 [facility] Comment on above: Order Comment: Speci men Type: BLOOD SPECIMEN Ordering Facility: [facility] Address: [address] [place] [address] Performed By: #### 5 7021-8 #### [facility] CLIA [id number] [address] [place] [address] [place] Monocytes (Bld) [#/Vol] 0.52 10*3/uL Normal <0.87 [facility] Comment on above: Order Comment: Speci men Type: BLOOD SPECIMEN Ordering Facility: [facility] Address: [address] [place] [address] Performed By: #### 5 7021-8 #### [facility] CLIA [id number] [address] [place] [address] [place] Monocytes/100 WBC (Bld) 6.3 % Normal [facility] Comment on above: Order Comment: Speci men Type: BLOOD SPECIMEN Ordering Facility: [facility] Address: [address] [place] [address] Performed By: #### 5 7021-8 #### [facility] CLIA [id number] [address] [place] [address] [place] Neutrophils (Bld) [#/Vol] 5.49 10*3/uL Normal 1.45-7.50 [facility] Comment on above: Order Comment: Speci men Type: BLOOD SPECIMEN Ordering Facility: [facility] Address: [address] [place] [address] Performed By: #### 5 7021-8 #### [facility] CLIA [id number] [address] [place] [address] [place] Neutrophils/100 WBC (Bld) 66.8 % Normal [facility] Comment on above: Order Comment: Speci men Type: BLOOD SPECIMEN Ordering Facility: [facility] Address: [address] [place] [address] Performed By: #### 5 7021-8 #### [facility] CLIA [id number] [address] [place] [address] [place] Nucleated RBC (Bld) [#/Vol] 10*3/uL Normal <0.01 [facility] Comment on above: Order Comment: Speci men Type: BLOOD SPECIMEN Ordering Facility: [facility] Address: [address] [place] [address] Performed By: #### 5 7021-8 #### [facility] CLIA [id number] [address] [place] [address] [place] Nucleated RBC/100 WBC (Bld) [Ratio] 0.0 /100 WBC Normal [facility] Comment on above: Order Comment: Speci men Type: BLOOD SPECIMEN Ordering Facility: [facility] Address: [address] [place] [address] Performed By: #### 5 7021-8 #### [facility] CLIA [id number] [address] [place] [address] [place] Platelet mean volume (Bld) [Entitic vol] 11.2 fL Normal 9.0-12.7 [facility] Comment on above: Order Comment: Speci men Type: BLOOD SPECIMEN Ordering Facility: [facility] Address: [address] [place] [address] Performed By: #### 5 7021-8 #### [facility] CLIA [id number] [address] [place] [address] [place] Platelets (Bld) [#/Vol] 198 10*3/uL Normal 150-400 [facility] Comment on above: Order Comment: Speci men Type: BLOOD SPECIMEN Ordering Facility: [facility] Address: [address] [place] [address] Performed By: #### 5 7021-8 #### [facility] CLIA [id number] [address] [place] [address] [place] RBC (Bld) [#/Vol] 4.84 10*6/uL Normal 4.20-6.00 [facility] Comment on above: Order Comment: Speci men Type: BLOOD SPECIMEN Ordering Facility: [facility] Address: [address] [place] [address] Performed By: #### 5 7021-8 #### [facility] CLIA [id number] [address] [place] [address] [place] WBC (Bld) [#/Vol] 8.23 10*3/uL Normal 3.70-11.00 [facility] Comment on above: Order Comment: Speci men Type: BLOOD SPECIMEN Ordering Facility: [facility] Address: [address] [place] [address] Performed By: #### 5 7021-8 #### [facility] CLIA [id number] [address] [place] [address] [place] Comprehensive metabolic 2000 panelon 05-07-2024 Albumin [Mass/Vol] 4.7 g/dL Normal 3.9-4.9 [facility] Comment on above: Order Comment: Speci men Type: BLOOD SPECIMEN Ordering Facility: [facility] Address: [address] [place] [address] Performed By: #### 2 4323-8 #### [facility] CLIA [id number] [address] [place] [address] [place] ALP [Catalytic activity/Vol] 31 U/L Low 38-113 [facility] Comment on above: Order Comment: Speci men Type: BLOOD SPECIMEN Ordering Facility: [facility] Address: [address] [place] [address] Performed By: #### 2 4323-8 #### [facility] CLIA [id number] [address] [place] [id number] [place] ALT [Catalytic activity/Vol] 7 U/L Low 10-54 [facility] Comment on above: Order Comment: Speci men Type: BLOOD SPECIMEN Ordering Facility: [facility] Address: [address] [place] [address] Performed By: #### 2 4323-8 #### [facility] CLIA [id number] [address] [place] [address] [place] Anion gap [Moles/Vol] 10 mmol/L Normal 8-15 [facility] Comment on above: Order Comment: Speci men Type: BLOOD SPECIMEN Ordering Facility: [facility] Address: [address] [place] [address] Performed By: #### 2 4323-8 #### [facility] CLIA [id number] [address] [place] [address] [place] AST [Catalytic activity/Vol] 18 U/L Normal 14-40 [facility] Comment on above: Order Comment: Speci men Type: BLOOD SPECIMEN Ordering Facility: [facility] Address: [address] [place] [address] Performed By: #### 2 4323-8 #### [facility] CLIA [id number] [address] [place] [address] [place] Bilirubin [Mass/Vol] 0.6 mg/dL Normal 0.2-1.3 [facility] Comment on above: Order Comment: Speci men Type: BLOOD SPECIMEN Ordering Facility: [facility] Address: [address] [place] [address] Performed By: #### 2 4323-8 #### [facility] CLIA [id number] [address] [place] [address] [place] Calcium [Mass/Vol] 9.6 mg/dL Normal 8.5-10.2 [facility] Comment on above: Order Comment: Speci men Type: BLOOD SPECIMEN Ordering Facility: [facility] Address: [address] [place] [address] Performed By: #### 2 4323-8 #### [facility] CLIA [id number] [address] [place] [address] [place] Chloride [Moles/Vol] 104 mmol/L Normal 98-107 [facility] Comment on above: Order Comment: Speci men Type: BLOOD SPECIMEN Ordering Facility: [facility] Address: [address] [place] [address] Performed By: #### 2 4323-8 #### [facility] CLIA [id number] [address] [place] [address] [place] CO2 [Moles/Vol] 25 mmol/L Normal 22-30 [facility] Comment on above: Order Comment: Speci men Type: BLOOD SPECIMEN Ordering Facility: [facility] Address: [address] [place] [address] Performed By: #### 2 4323-8 #### [facility] CLIA [id number] [address] [place] [address] [place] Creatinine [Mass/Vol] 0.91 mg/dL Normal 0.73-1.22 [facility] Comment on above: Order Comment: Speci men Type: BLOOD SPECIMEN Ordering Facility: [facility] Address: [address] [place] [address] Performed By: #### 2 4323-8 #### [facility] CLIA [id number] [address] [place] [address] [place] Creatinine and Glomerular filtration rate.predicted panel (S/P/Bld) 125 mL/min/1.73m??? Normal >=60 [facility] Comment on above: Order Comment: Speci men Type: BLOOD SPECIMEN Ordering Facility: [facility] Address: [address] [place] [address] Result Comment: Vesta mated Glomerular Filtration Rate (eGFR) is calculated using the 2020 CKD-EPI creatinine equation. This equation utilizes serum creatinine, sex, and age as parameters. The creatinine assay has traceable calibration to isotope dilution-mass spectrometry. Refer to KDIGO guidelines for clinical interpretation. In patients with unstable renal function, e.g. those with acute kidney injury, the eGFR may not accurately reflect actual GFR. Performed By: #### 2 4323-8 #### [facility] CLIA [id number] [address] [place] [address] [place] Glucose [Mass/Vol] 82 mg/dL Normal 74-99 [facility] Comment on above: Order Comment: Aida manzano Type: BLOOD SPECIMEN Ordering Facility: [facility] Address: [address] [place] [address] Result Comment: The [place] [employer] (ADA) provides guidance for cutoff values for fasting glucose and random glucose. The ADA defines fasting as no caloric intake for at least 8 hours. Fasting plasma glucose results between 100 to 125 mg/dL indicate increased risk for diabetes (prediabetes). Fasting plasma glucose results greater than or equal to 126 mg/dL meet the criteria for diagnosis of diabetes. In the absence of unequivocal hyperglycemia, results should be confirmed by repeat testing. In a patient with classic symptoms of hyperglycemia or hyperglycemic crisis, random plasma glucose results greater than or equal to 200 mg/dL meet the criteria for diagnosis of diabetes. Reference: Standards of Medical Care in Diabetes 2016, [employer]. Diabetes Care. 2016.39(Suppl 1). Performed By: #### 2 4323-8 #### [facility] CLIA [id number] [address] [place] [address] [place] Potassium [Moles/Vol] 4.4 mmol/L Normal 3.7-5.1 [facility] Comment on above: Order Comment: Aida manzano Type: BLOOD SPECIMEN Ordering Facility: [facility] Address: [address] [place] [address] Performed By: #### 2 4323-8 #### [facility] CLIA [id number] [address] [place], [place] [id number] [place] Protein [Mass/Vol] 7.5 g/dL Normal 6.3-8.0 [facility] Comment on above: Order Comment: Speci men Type: BLOOD SPECIMEN Ordering Facility: [facility] Address: [address] [place] [address] Performed By: #### 2 4323-8 #### [facility] CLIA [id number] [address] [place] [address] [place] Sodium [Moles/Vol] 139 mmol/L Normal 136-144 [facility] Comment on above: Order Comment: Speci men Type: BLOOD SPECIMEN Ordering Facility: [facility] Address: [address] [place] [address] Performed By: #### 2 4323-8 #### [facility] CLIA [id number] [address] [place] [address] [place] Urea nitrogen [Mass/Vol] 15 mg/dL Normal 9-24 [facility] Comment on above: Order Comment: Speci men Type: BLOOD SPECIMEN Ordering Facility: [facility] Address: [address] [place] [address] Performed By: #### 2 4323-8 #### [facility] CLIA [id number] [address] [place] [address] [place] [facility] Valproate [Mass/Vol] 108.0 ug/mL High 50.0-100.0 [facility] Comment on above: Order Comment: Speci men Type: BLOOD SPECIMEN Ordering Facility: [facility] Address: [address] [place] [address] Result Comment: Refe rence ranges and high/low indicator flags are provided as general guidelines only. The treating physician must determine appropriate target levels/dosing based on the specific clinical situation. Performed By: #### 4 086-5 #### [facility] CLIA [id number] [address] [place] [address] [place] CNPNon 05-02-2024 [facility] Telephone (NE50MN) ZARINABISHOP ROBERTS ([id number]) 5 M Date Time Provider Department 05/02/24 RAVINDER DE LOS SANTOS [id number] During your visit today, we recorded the following information about you: Zoila Mcnulty 05/02/2024 12:51 PM Signed General call : Full name of person calling: Bishop Srinivasan Relationship to patient: self Phone # : [phone] (home) Reason for call: asking do he needs labs done before 05/08/24 appt? Patient of Shonda Peter RN 05/03/2024 5:11 PM Signed Routed to Dr. De Los Santos. Please file pending orders and RETURN encounter, Thank you. POLLY Echevarria Prakash, MD 05/03/2024 5:16 PM Signed Lab ordered. MD Milagro Morrison Demeshia L, RN 05/04/2024 1:56 PM Signed -Called Bishop. Advised him per Dr. De Los Santos. -He verbalized understanding and agrees with plan. 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 - divalproex DR (DEPAKOTE) 250 mg EC tablet Take 3 tablets by mouth two times a day. - glucagon (GLUCAGEN) 1 mg/mL injection Inject 1 mg intravenously one time only for 1 dose. For MRI Enterography, Inject 1 mg intravenously, as directed. Slow push at the appropriate time during MRI Scan Problem List As Of Date 05/02/2024 Noted Resolved Febrile convulsions (simple), unspecified [R56.*02/27/2008 04/04/2017 Partial epilepsy with impairment of consciousne*06/11/2008 Well child check [Z00.129] 10/25/2014 Partial symptomatic epilepsy with complex parti*11/03/2015 Childhood absence epilepsy, refractory (HCC) [G*11/06/2015 Other ulcerative colitis with rectal bleeding (*11/16/2022 Vitamin D deficiency [E55.9] 11/16/2022 Encounter Status:Closed by SHONDA SAHA on 05/04/24 Normal [facility] VALPROIC A/DEPAKENEon 2022 Valproate [Mass/Vol] 66.7 ug/mL 50.0 - 100.0 ug/mL [facility] Absolute lymphocyte countOrd ered By: Dr. Arana on 10-22-2022 Lymphocytes Auto (Unsp spec) [#/Vol] 1.55 10*3/uL 0.83-4.51 [facility] Basophil percentageOrdered B y: Dr. Arana on 10-22-2022 Basophils/100 WBC (Bld) 0.6 % 0-1 [facility] Bilirubin [Mass/Vol] 0.30 mg/dL 0.20-1.00 [facility] Comment on above: For patients on eltr ombopag therapy, use of Dimension [place] TBIL is not recommended. Chloride [Moles/Vol] 107 mmol/L 98-107 [facility] Eosinophils/100 WBC (Bld) 3.7 % 0-3 [facility] Glucose [Mass/Vol] 91 mg/dL 74-106 [facility] Neutrophils (Bld) [#/Vol] 7.0 10*3/uL 2.0-7.7 [facility] Neutrophils/100 WBC (Bld) 69.1 % 34-64 [facility] Potassium [Moles/Vol] 3.9 mmol/L 3.5-5.1 [facility] Protein [Mass/Vol] 7.5 g/dL 6.4-8.2 [facility] Sodium [Moles/Vol] 142 mmol/L 136-145 [facility] WBC (Bld) [#/Vol] 10.2 10*3/uL 4.5-13.0 [facility] Blood erythrocytes count (nu mber/volume)Ordered By: Dr. Arana on 10-22-2022 RBC (Bld) [#/Vol] 4.60 10*6/uL 4.5-5.1 [facility] Blood hemoglobin measurement (mass/volume)Ordered By: Dr. Arana on 10-22-2022 Hemoglobin (Bld) [Mass/Vol] 13.0 g/dL 13.0-16.5 [facility] Blood lymphocytes/100 leukoc ytesOrdered By: Dr. Arana on 10-22-2022 Lymphocytes/100 WBC (Bld) 15.3 % 25-45 [facility] Blood monocytes/100 leukocyt esOrdered By: Dr. Arana on 10-22-2022 Monocytes/100 WBC (Bld) 11.1 % 3-6 [facility] Blood platelet mean volumeOr dered By: Dr. Arana on 10-22-2022 Platelet mean volume (Bld) [Entitic vol] 9.4 fL 6.2-12.0 [facility] Determination of erythrocyte mean corpuscular volume (MCV)Ordered By: Dr. Arana on 10-22-2022 MCV (RBC) [Entitic vol] 87.8 fL 78-96 [facility] Hematocrit Auto (Bld) [Volum e fraction]Ordered By: Dr. Arana on 10-22-2022 Hematocrit (Bld) [Volume fraction] 40.4 % 36-47 [facility] - Chemistry and C hemistry - challengeOrdered By: Dr. Arana on 10-22-2022 ALP [Catalytic activity/Vol] 43 U/L 52-171 [facility] ALT [Catalytic activity/Vol] 18 U/L 16-61 [facility] CO2 [Moles/Vol] 29.0 mmol/L 21.0-32.0 [facility] Globulin (S) [Mass/Vol] 4.0 g/dL 2.2-4.2 [facility] Lipase [Catalytic activity/Vol] 87 U/L 73-393 [facility] Urea nitrogen/Creatinine [Mass ratio] 11.5 mg/mg 10-20 [facility] - Hematology and Cell countsOrdered By: Dr. Arana on 10-22-2022 Erythrocyte distribution width (RBC) [Entitic vol] 39.1 fL 35.1-43.9 [facility] Erythrocyte distribution width (RBC) [Ratio] 12.2 % 11.6-14.6 [facility] Immature granulocytes/100 WBC (Bld) 0.200 % 0.0-0.9 [facility] Comment on above: IG% - Immature Granu locytes (promyelocytes, myelocytes and metamyelocytes) > 1% indicates that a LEFT SHIFT is Present. MCH (RBC) [Entitic mass] 28.3 pg 25.0-35.0 [facility] Nucleated RBC/100 WBC (Bld) [Ratio] 0 % 0-5 [facility] MCHC Auto (RBC) [Mass/Vol]Or dered By: Dr. Araan on 10-22-2022 MCHC (RBC) [Mass/Vol] 32.2 g/dL 32-36 [facility] No Panel InformationOrdered By: Dr. Arana on 10-22-2022 Estimated Creatinine Clearance Calc 109.15 ml/min [facility] Estimated GFR (MDRD) er [facility] Comment on above: Test not performedAf rican Austrian GFR Calc Estimated GFR (MDRD) Non-Af [facility] Comment on above: Test not performedNo n- GFR Calc Platelets bldOrdered By: Dr. rAana on 10-22-2022 Platelets (Bld) [#/Vol] 333 10*3/uL 150-450 [facility] Serum or plasma albumin meredith urement (mass/volume)Ordered By: Dr. Arana on 10-22-2022 Albumin [Mass/Vol] 3.5 g/dL 3.2-5.0 [facility] Serum or plasma albumin/glob ulin mass ratioOrdered By: Dr. Arana on 10-22-2022 Albumin/Globulin [Mass ratio] 0.9 {ratio} 0.9-2.4 [facility] Serum or plasma calcium meredith urement (mass/volume)Ordered By: Dr. Arana on 10-22-2022 Calcium [Mass/Vol] 8.8 mg/dL 8.5-10.1 [facility] Serum or plasma creatinine m easurement (mass/volume)Ordered By: Dr. Arana on 10-22-2022 Creatinine [Mass/Vol] 0.95 mg/dL 0.70-1.30 [facility] Comment on above: The validity of the calculated GFR & GFRAA in patients over 70 years has not been determined. Clinical correlation is essential. Serum or plasma urea nitroge n measurement (mass/volume)Ordered By: Dr. Arana on 10-22-2022 Urea nitrogen [Mass/Vol] 11 mg/dL 7-18 [facility] Thin prep Papanicolaou smear with manual screeningOrdered By: Dr. Arana on 10-22-2022 Thin prep Papanicolaou smear with manual screening 13 U/L 15-37 [facility] Thin prep Papanicolaou smear with manual screening 6 5-15 [facility] Vital Signs Date Time Vital Sign Value Performing Clinician Facility 02-07-2025 15:03-0400 Body height 175.[address] Luis Norwood DO Work Phone: [facility] 02-07-2025 15:03-0400 Body mass index (BMI) [Percentile] Per age and sex 10.8 % Dr. Luis Norwood DO Work Phone: [facility] 02-07-2025 15:03-0400 Body mass index (BMI) [Ratio] 19.9 kg/m2 Dr. Luis Norwood DO Work Phone: [facility] 02-07-2025 15:03-0400 Body temperature 98.4 [degF] Dr. Luis Norwood DO Work Phone: [facility] 02-07-2025 15:03-0400 Body weight 61.[address] Luis Norwood DO Work Phone: 4(528)854-206618 [place] [address] 02-07-2025 15:03-0400 Diastolic blood pressure 83 mm[Hg] Dr. Luis Norwood DO Work Phone: 5(019)098-315118 [place] [address] 02-07-2025 15:03-0400 Heart rate 74 /min Dr. Luis Norwood DO Work Phone: 8(653)021-527118 [place] [address] 02-07-2025 15:03-0400 Respiratory rate 15 /min Dr. Luis Norwood DO Work Phone: 8(915)236-459618 [place] [address] 02-07-2025 15:03-0400 SaO2% (BldA) [Mass fraction] 99 % Dr. Luis Norwood DO Work Phone: 4(558)279-364818 [place] [address] 02-07-2025 15:03-0400 Systolic blood pressure 126 mm[Hg] Dr. Luis Norwood DO Work Phone: 3(097)738-410118 [place] [address] 11-13-2024 12:55-0500 Body height 175.[address] Luis Norwood DO Work Phone: 3(981)749-014318 [place] [address] 11-13-2024 12:55-0500 Body mass index (BMI) [Percentile] Per age and sex 9 % Dr. Luis Norwood DO Work Phone: 7(835)592-154918 [place] [address] 11-13-2024 12:55-0500 Body mass index (BMI) [Ratio] 19.6 kg/m2 Dr. Luis Norwood DO Work Phone: 7(833)083-145918 [place] [address] 11-13-2024 12:55-0500 Body temperature 98.2 [degF] Dr. Luis Norwood DO Work Phone: 1(188)453-273218 [place] [address] 11-13-2024 12:55-0500 Body weight 60.[address] Luis Norwood DO Work Phone: 7(027)037-998118 [place] [address] 11-13-2024 12:55-0500 Diastolic blood pressure 74 mm[Hg] Dr. Luis Norwood DO Work Phone: [facility] 11-13-2024 12:55-0500 Heart rate 92 /min Dr. Luis Norwood DO Work Phone: [facility] 11-13-2024 12:55-0500 Respiratory rate 16 /min Dr. Luis Norwood DO Work Phone: [facility] 11-13-2024 12:55-0500 SaO2% (BldA) [Mass fraction] 99 % Dr. Luis Norwood DO Work Phone: [facility] 11-13-2024 12:55-0500 Systolic blood pressure 120 mm[Hg] Dr. Luis Norwood DO Work Phone: [facility] 05-08-2024 11:01-0400 Body height 173.4 cm Ravinder De Los Santos MD Work Phone: [facility] 05-08-2024 11:01-0400 Body mass index (BMI) [Ratio] 19.37 kg/m2 Ravinder De Los Santos MD Work Phone: [facility] 05-08-2024 11:01-0400 Body temperature 98.91 [degF] Ravinder De Los Santos MD Work Phone: [facility] 05-08-2024 11:01-0400 Body weight 58.2 kg Ravinder De Los Santos MD Work Phone: [facility] 05-08-2024 11:01-0400 Diastolic blood pressure 70 mm[Hg] Ravinder De Los Santos MD Work Phone: [facility] 05-08-2024 11:01-0400 Heart rate 86 /min Ravinder De Los Santos MD Work Phone: [facility] 05-08-2024 11:01-0400 Respiratory rate 20 /min Ravinder De Los Santos MD Work Phone: [facility] 05-08-2024 11:01-0400 SaO2% (BldA) [Mass fraction] 98 % Ravinder De Los Santos MD Work Phone: [facility] 05-08-2024 11:01-0400 Systolic blood pressure 130 mm[Hg] Ravinder De Los Santos MD Work Phone: [facility] 02-23-2023 08:34-0400 Body weight 63.5 kg Williams Francis MD Work Phone: [facility] 12-14-2022 08:58-0400 Body height 173 cm Williams Francis MD Work Phone: [facility] 12-14-2022 08:58-0400 Body mass index (BMI) [Percentile] Per age and sex 26.41 % Williams Francis MD Work Phone: [facility] 12-14-2022 08:58-0400 Body temperature 98.1 [degF] Williams Francis MD Work Phone: [facility] 12-14-2022 08:58-0400 Body weight 60.28 kg Williams Francis MD Work Phone: [facility] 12-14-2022 08:58-0400 Diastolic blood pressure 72 mm[Hg] Williams Francis MD Work Phone: [facility] 12-14-2022 08:58-0400 Heart rate 70 /min Williams Francis MD Work Phone: [facility] 12-14-2022 08:58-0400 Systolic blood pressure 131 mm[Hg] Williams Francis MD Work Phone: [facility] 11-16-2022 08:45-0500 Body temperature 96.4 [degF] Williams Francis MD Work Phone: [facility] 11-16-2022 08:45-0500 Body weight 60.33 kg Williams Francis MD Work Phone: [facility] 11-16-2022 08:45-0500 Diastolic blood pressure 69 mm[Hg] Williams Francis MD Work Phone: [facility] 11-16-2022 08:45-0500 Heart rate 91 /min Williams Francis MD Work Phone: [facility] 11-16-2022 08:45-0500 SaO2% (BldA) [Mass fraction] 98 % Williams Francis MD Work Phone: [facility] 11-16-2022 08:45-0500 Systolic blood pressure 139 mm[Hg] Williams Francis MD Work Phone: [facility] 10-26-2022 08:24-0500 Body height 173 cm Williams Francis MD Work Phone: [facility] 10-26-2022 08:24-0500 Body mass index (BMI) [Percentile] Per age and sex 29.3 % Williams Francis MD Work Phone: [facility] 10-26-2022 08:24-0500 Body temperature 96.8 [degF] Williams Francis MD Work Phone: [facility] 10-26-2022 08:24-0500 Body weight 60.65 kg Williams Francis MD Work Phone: [facility] 10-26-2022 08:24-0500 Diastolic blood pressure 75 mm[Hg] Williams Francis MD Work Phone: [facility] 10-26-2022 08:24-0500 Heart rate 83 /min Williams Francis MD Work Phone: [facility] 10-26-2022 08:24-0500 SaO2% (BldA) [Mass fraction] 99 % Williams Francis MD Work Phone: [facility] 10-26-2022 08:24-0500 Systolic blood pressure 117 mm[Hg] Williams Francis MD Work Phone: [facility] 10-22-2022 17:13-0500 Diastolic blood pressure 71 mm[Hg] [facility] 10-22-2022 17:13-0500 Heart rate 82 /min [facility] 10-22-2022 17:13-0500 Respiratory rate 14 /min [facility] 10-22-2022 17:13-0500 SaO2% (BldA) [Mass fraction] 98 % [facility] 10-22-2022 17:13-0500 Systolic blood pressure 121 mm[Hg] [facility] 10-22-2022 13:33-0500 Body height 172.72 cm [facility] 10-22-2022 13:33-0500 Body mass index (BMI) [Percentile] Per age and sex 30 % [facility] 10-22-2022 13:33-0500 Body mass index (BMI) [Ratio] 20.3 kg/m2 [facility] 10-22-2022 13:33-0500 Body temperature 98.1 [degF] [facility] 10-22-2022 13:33-0500 Body weight 60.7 kg [facility] 09-16-2022 15:11-0500 Body weight 60.33 kg Sarina Sosa SOCIOCULTURAL ANTHROPOLOGY PROFESSOR.HOPPER FEEDER Work Phone: [facility] 09-16-2022 15:11-0500 Diastolic blood pressure 74 mm[Hg] Sarina Wrightf SOCIOCULTURAL ANTHROPOLOGY PROFESSOR.HOPPER FEEDER Work Phone: [facility] 09-16-2022 15:11-0500 Heart rate 89 /min Sarina Sosa SOCIOCULTURAL ANTHROPOLOGY PROFESSOR.HOPPER FEEDER Work Phone: [facility] 09-16-2022 15:11-0500 Respiratory rate 16 /min Sarina Sosa SOCIOCULTURAL ANTHROPOLOGY PROFESSOR.HOPPER FEEDER Work Phone: [facility] 09-16-2022 15:11-0500 SaO2% (BldA) [Mass fraction] 97 % Sarina Sosa SOCIOCULTURAL ANTHROPOLOGY PROFESSOR.HOPPER FEEDER Work Phone: [facility] 09-16-2022 15:11-0500 Systolic blood pressure 110 mm[Hg] Sarina Sosa SOCIOCULTURAL ANTHROPOLOGY PROFESSOR.HOPPER FEEDER Work Phone: [facility] 07-05-2022 13:24-0400 Body height 173 cm Ravinder De Los Santos MD Work Phone: [facility] 07-05-2022 13:24-0400 Body mass index (BMI) [Percentile] Per age and sex 19.63 % Ravinder De Los Santos MD Work Phone: [facility] 07-05-2022 13:24-0400 Body temperature 97.81 [degF] Ravinder De Los Santos MD Work Phone: [facility] 07-05-2022 13:24-0400 Body weight 58.02 kg Ravinder De Los Santos MD Work Phone: [facility] 07-05-2022 13:24-0400 Diastolic blood pressure 57 mm[Hg] Ravinder De Los Santos MD Work Phone: [facility] 07-05-2022 13:24-0400 Heart rate 75 /min Ravinder De Los Santos MD Work Phone: [facility] 07-05-2022 13:24-0400 SaO2% (BldA) [Mass fraction] 100 % Ravinder De Los Santos MD Work Phone: [facility] 07-05-2022 13:24-0400 Systolic blood pressure 116 mm[Hg] Ravinder De Los Santos MD Work Phone: [facility] 03-30-2022 09:07-0400 Body height 174.5 cm Yani Pratt SOCIOCULTURAL ANTHROPOLOGY PROFESSOR.HOPPER FEEDER Work Phone: [facility] 03-30-2022 09:07-0400 Body mass index (BMI) [Percentile] Per age and sex 21.66 % Yani Pratt SOCIOCULTURAL ANTHROPOLOGY PROFESSOR.HOPPER FEEDER Work Phone: [facility] 03-30-2022 09:07-0400 Body weight 58.97 kg Yani Pratt SOCIOCULTURAL ANTHROPOLOGY PROFESSOR.HOPPER FEEDER Work Phone: [facility] 03-30-2022 09:07-0400 Diastolic blood pressure 76 mm[Hg] Yani Pratt SOCIOCULTURAL ANTHROPOLOGY PROFESSOR.HOPPER FEEDER Work Phone: [facility] 03-30-2022 09:07-0400 Heart rate 86 /min Yani Pratt SOCIOCULTURAL ANTHROPOLOGY PROFESSOR.HOPPER FEEDER Work Phone: [facility] 03-30-2022 09:07-0400 Respiratory rate 18 /min Yani Hajenelle SOCIOCULTURAL ANTHROPOLOGY PROFESSOR.HOPPER FEEDER Work Phone: [facility] 03-30-2022 09:07-0400 SaO2% (BldA) [Mass fraction] 98 % Yani Funesjenelle SOCIOCULTURAL ANTHROPOLOGY PROFESSOR.HOPPER FEEDER Work Phone: [facility] 03-30-2022 09:07-040 Systolic blood pressure 110 mm[Hg] Yani Santa SOCIOCULTURAL ANTHROPOLOGY PROFESSOR.HOPPER FEEDER Work Phone: [facility] Encounters Encounter Date Encounter Type Care Provider Facility Start: 04-15-2025 End: 04-15-2025 Telemedicine consultation with patient Williams Francis MD Work Phone: [facility] Start: 04-15-2025 End: 04-15-2025 ambulatory Williams Francis MD Work Phone: [facility] Comment on above: Other ulcerative col itis with complication (HCC) (Primary Dx); Family history of ulcerative colitis; Non-adherence to medical treatment; 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 Vasiliy Diaz MD -[facility] Work Phone: Start: 02-07-2025 End: 02-07-[address] Luis Norwood DO Work Phone: [facility] Work Phone: Start: 12-28-2024 End: 12-28-[address] Luis Norwood DO Work Phone: [facility] Work Phone: Start: 12-28-2024 End: 12-28-[address] Vasiliy Diaz MD -[facility] Work Phone: Start: 12-28-2024 End: 12-28-2024 ambulatory Vasiliy Diaz Facility:[facility] Start: 11-13-2024 End: 11-13-2024 ambulatory Luis Norwood Facility:[facility] Start: 11-13-2024 End: 11-13-[address] Vasiliy Diaz MD -[facility] Work Phone: Start: 11-13-2024 End: 11-13-2024 ambulatory Luis Norwood Facility:[facility] Start: 08-08-2024 End: 08-08[facility] [facility] Start: 05-08-2024 End: 05-21-2024 E-mail encounter from caregiver [facility] Start: 05-08-2024 End: 05-21-2024 ambulatory [facility] Comment on above: Records have been fa xed to Dr. Diaz Start: 05-08-2024 End: 05-08-2024 Patient encounter procedure Ravinder De Los Santos MD Work Phone: Neurology Comment on above: Counseling for trans ition from pediatric to adult model of care (Primary Dx); Juvenile absence epilepsy (HCC) Start: 05-07-2024 End: 05-07-2024 ambulatory RAVINDER DE LOS SANTOS Facility:[facility] Start: 05-02-2024 Telephone encounter Ravinder onofre MD Work Phone: Neurology Comment on above: general (Lab questio n ) Start: 03-16-2024 Telephone encounter Ravinder onofre MD Work Phone: Neurology Comment on above: Insurance Authorizat ion (divalproex) Start: 01-11-2024 End: 01-11-2024 ambulatory Williams Francis MD Work Phone: Ped Gastroenterology Comment on above: Other ulcerative col itis with rectal bleeding (HCC) (Primary Dx); Stress at home; Long-term current use of mesalamine; Family history of ulcerative colitis; Non-adherence to medical treatment Start: 01-11-2024 End: 01-11-2024 Telemedicine consultation with patient Williams Francis MD Work Phone: [facility] Start: 12-11-2023 Refill Williams Sears Work Phone: Pediatric Gastroenterology Comment on above: Refill Request Start: 11-18-2023 Telephone encounter Ravinder onofre MD Work Phone: Neurology Comment on above: Results Start: 11-11-2023 End: 11-11-2023 ambulatory Ravinder De Los Santos MD Work Phone: Neurology Comment on above: Juvenile absence epi lepsy (HCC) Start: 11-11-2023 End: 11-11-2023 Telemedicine consultation with patient Ravinder De Los Santos MD Work Phone: [facility] Start: 11-10-2023 End: 11-10-2023 ambulatory LUIS NORWOOD Facility:[facility] Start: 11-01-2023 Orders Only Ravinder campos MD Work Phone: Pediatrics [facility] Comment on above: 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) Start: 09-08-2023 End: 09-08-2023 Nursing evaluation of patient and report Mi Nurse Work Phone: [facility] Comment on above: Need for vaccination (Primary Dx) Start: 07-11-2023 Telephone encounter Ravinder onofre MD Work Phone: Neurology Comment on above: Opened In Error Start: 07-08-2023 Telephone encounter Ravinder onofre MD Work Phone: Neurology Comment on above: Results Start: 06-01-2023 End: 06-01-2023 ambulatory Williams Francis MD Work Phone: [facility]ology Comment on above: Other ulcerative col itis with rectal bleeding (HCC) (Primary Dx); Vitamin D deficiency; 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); Family history of ulcerative colitis; Iron deficiency anemia due to chronic blood loss; Long-term current use of mesalamine; Variable compliance with medication therapy Start: 06-01-2023 End: 06-01-2023 Telemedicine consultation with patient Williams Francis MD Work Phone: [facility] Start: 04-21-2023 End: 04-21-2023 Nursing evaluation of patient and report Mi Nurse Work Phone: [facility] [place] Comment on above: Encounter for immuni zation (Primary Dx) Start: 04-12-2023 Telephone encounter Ravinder onofre MD Work Phone: Neurology Comment on above: Medication Authoriza tion (PA for divalproex DR (DEPAKOTE) 250 mg EC tablet) Orders Start: 04-04-2023 Telephone encounter Ravinder onofre MD Work Phone: Neurology Comment on above: Lab Orders Start: 02-24-2023 Telephone encounter Luis shane DO Work Phone: [facility] Comment on above: Orders Start: 02-23-2023 End: 02-23-2023 ambulatory Williams Francis MD Work Phone: Peds Gastroenterology Comment on above: Other ulcerative col itis with rectal bleeding (HCC) (Primary Dx); Vitamin D deficiency; Iron deficiency anemia due to chronic blood loss; 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); Family history of ulcerative colitis Start: 02-23-2023 End: 02-23-2023 Telemedicine consultation with patient Williams Francis MD Work Phone: [facility] Start: 12-31-2022 End: 12-31-2022 Subsequent hospital visit by physician Royce Anxiolysis/Procedu re Qb1 Work Phone: Radiology Comment on above: Other ulcerative col itis with rectal bleeding (HCC) [K51.811] Start: 12-14-2022 End: 12-14-2022 Patient encounter procedure Williams Francis MD Work Phone: Pediatric Gastroenterology Comment on above: Other ulcerative col itis with rectal bleeding (HCC) (Primary Dx); Vitamin D deficiency; Iron deficiency anemia due to chronic blood loss; Current use of steroid medication; Family history of ulcerative colitis; 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) Start: 12-10-2022 Refill Williams Sears Work Phone: Pediatric Gastroenterology Comment on above: Refill Request Start: 11-23-2022 Telephone encounter Verena Francis RN Peds Gastroenterology Comment on above: 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) Start: 11-19-2022 ambulatory Williams Sears Work Phone: Pediatric Gastroenterology Comment on above: School wants medical note Start: 11-16-2022 ambulatory Williams Sears Work Phone: Pediatric Gastroenterology Comment on above: Mesalamine Start: 11-16-2022 End: 11-16-2022 Patient encounter procedure Williams Francis MD Work Phone: Pediatric Gastroenterology Comment on above: Other ulcerative col itis with rectal bleeding (HCC) (Primary Dx); Vitamin D deficiency; Iron deficiency anemia due to chronic blood loss; Current use of steroid medication Start: 11-04-2022 Orders Only Shamika Loco MD Work Phone: [facility] [place] Comment on above: Ulcerative pancoliti s without complication (HCC) (Primary Dx) Start: 10-27-2022 Orders Only Williams Sears Work Phone: Peds Gastroenterology Start: 10-26-2022 ambulatory Williams Sears Work Phone: Pediatric Gastroenterology Comment on above: Colonoscopy and endo scopy prep Start: 10-26-2022 End: 10-26-2022 Patient encounter procedure Williams Francis MD Work Phone: Pediatric Gastroenterology Comment on above: Blood in stool (Prim melinda Dx); Diarrhea, unspecified type; Family history of ulcerative colitis Start: 10-25-2022 Telephone encounter Luis shane DO Work Phone: [facility] [place] Comment on above: Referral Request Start: 10-22-2022 ambulatory Ravinder campos MD Work Phone: Neurology Comment on above: Gastro issues with E thosuximide Start: 10-22-2022 End: 10-22-2022 Emergency department patient visit [facility]Emergency Department Start: 10-15-2022 Telephone encounter Ravinder onofre MD Work Phone: Neurology Comment on above: medication concern ( ethosuximide) Start: 09-23-2022 Telephone encounter Ravinder onofre MD Work Phone: Neurology Comment on above: Results Start: 09-16-2022 End: 09-16-2022 Patient encounter procedure Sarina Sosa SOCIOCULTURAL ANTHROPOLOGY PROFESSOR.HOPPER FEEDER Work Phone: [facility] Comment on above: Diarrhea, unspecifie d type (Primary Dx); Blood in stool Start: 08-25-2022 ambulatory Ravinder campos MD Work Phone: Neurology Comment on above: Ethosuximide results Start: 08-17-2022 ambulatory Ravinder campos MD Work Phone: Neurology Comment on above: Blood work Start: 07-09-2022 Telephone encounter Ravinder onofre MD Work Phone: Neurology Comment on above: Medication Problem ( Side effects since starting Ethosuximde a few days ago) Start: 07-05-2022 ambulatory Ravinder campos MD Work Phone: Neurology Comment on above: Ethosuximide Start: 07-05-2022 End: 07-05-2022 Patient encounter procedure Ravinder De Los Santos MD Work Phone: Neurology Comment on above: Juvenile absence epi lepsy (HCC) (Primary Dx) Start: 06-03-2022 Telephone encounter Johan Corley MD Work Phone: Neurology Comment on above: Future Appointment ( [place], [place], [place] ) Start: 06-02-2022 Telephone encounter Luis shane DO Work Phone: [facility] Comment on above: Seizures Start: 03-30-2022 End: 03-30-2022 Patient encounter procedure Yani Pratt SOCIOCULTURAL ANTHROPOLOGY PROFESSOR.HOPPER FEEDER Work Phone: [facility] [place] Comment on above: Encounter for routin e child health examination w/o abnormal findings (Primary Dx); Encounter for immunization Start: 03-30-2022 End: 03-30-2022 Patient encounter status Yani Santa RIVERS Work Phone: [facility] [place] Start: 10-25-2014 Patient encounter status Yani Hajenelle RIVERS Work Phone: [facility] Work Phone: Procedures Date Procedure Procedure Detail Performing Clinician Start: 12-28-2024 MRI of brain with contrast Dr. Luis Norwood DO Work Phone: Start: 11-13-[address] Luis Norwood DO Work Phone: Start: 11-13-2024 Measurement of renal function Dr. Luis Norwood DO Work Phone: Comment on above: GFR Calc Start: 11-13-[address] Luis Norwood DO Work Phone: Start: 10-22-2022 Computed tomography of abdomen and pelvis with contrast Start: 03-30-2022 Adult depression scr eening assessment Yani Santa MCGEEHOPPER FEEDER Work Phone: Plan of Treatment Date Care Activity Detail Author Start: 04-04-2027 Urine microalbumin profile [facility] Start: 05-27-2025 Influenza vaccination Influenza Vaccine (#1) [facility] Start: 04-16-2025 End: 07-16-2025 Calprotectin [Mass/mass] in Stool CALPROTECTIN,FECAL Lab Routine Other ulcerative colitis with complication (HCC) Expected: 04/16/2025 (Approximate), Expires: 07/16/2025 [facility] Comment on above: Expected: 04/16/2025 (Approximate), Expi res: 07/16/2025 Start: 04-15-2025 End: 04-15-2025 Follow-up encounter 04/15/2025 4:[address] [facility] [address] [place] [address] Williams Francis MD [address] [place] [address] Follow up Peds Gastroenterology Comment on above: Follow up Start: 04-15-2025 End: 07-15-2025 25-hydroxyvitamin D3 [Mass/volume] in Serum or Plasma VITAMIN D 25 HYDROXY Lab Routine Other ulcerative colitis with complication (HCC) Expected: 04/15/2025, Expires: 07/15/2025 [facility] Comment on above: Expected: 04/15/2025, Expires: Start: 04-15-2025 End: 07-15-2025 Basic metabolic 2000 panel - Serum or Plasma BASIC METABOLIC PANEL Lab Routine Other ulcerative colitis with complication (HCC) Expected: 04/15/2025, Expires: 07/15/2025 [facility] Comment on above: Expected: 04/15/2025, Expires: Start: 04-15-2025 End: 07-15-2025 BLOOD TB SCREEN BLOOD TB SCREEN Lab Routine Other ulcerative colitis with complication (HCC) Expected: 04/15/2025, Expires: 07/15/2025 [facility] Comment on above: Expected: 04/15/2025, Expires: Start: 04-15-2025 End: 07-15-2025 C reactive protein [Mass/volume] in Serum or Plasma C-REACTIVE PROTEIN Lab Routine Other ulcerative colitis with complication (HCC) Expected: 04/15/2025, Expires: 07/15/2025 [facility] Comment on above: Expected: 04/15/2025, Expires: Start: 04-15-2025 End: 07-15-2025 CBC W Auto Differential panel - Blood COMPLETE BLOOD COUNT AND DIFFERENTIAL Lab Routine Other ulcerative colitis with complication (HCC) Expected: 04/15/2025, Expires: 07/15/2025 [facility] Work Phone: Comment on above: Expected: 04/15/2025, Expires: Start: 04-15-2025 End: 07-15-2025 Erythrocyte sedimentation rate SEDIMENTATION RATE, WESTERGREN Lab Routine Other ulcerative colitis with complication (HCC) Expected: 04/15/2025, Expires: 07/15/2025 [facility] Comment on above: Expected: 04/15/2025, Expires: Start: 04-15-2025 End: 04-15-2026 Ferritin [Mass/volume] in Serum or Plasma FERRITIN Lab Routine Other ulcerative colitis with complication (HCC) Expected: 04/15/2025, Expires: 04/15/2026 [facility] Comment on above: Expected: 04/15/2025, Expires: Start: 04-15-2025 End: 07-15-2025 Gamma glutamyl transferase [Enzymatic activity/volume] in Serum or Plasma GGT Lab Routine Other ulcerative colitis with complication (HCC) Expected: 04/15/2025, Expires: 07/15/2025 [facility] Comment on above: Expected: 04/15/2025, Expires: Start: 04-15-2025 End: 07-15-2025 Hepatic function 2000 panel - Serum or Plasma HEPATIC FUNCTION PNL Lab Routine Other ulcerative colitis with complication (HCC) Expected: 04/15/2025, Expires: 07/15/2025 [facility] Comment on above: Expected: 04/15/2025, Expires: Start: 04-15-2025 End: 07-15-2025 Hepatitis B virus surface Ab [Presence] in Serum HEPATITIS B SURFACE ANTIBODY Lab Routine Other ulcerative colitis with complication (HCC) Expected: 04/15/2025, Expires: 07/15/2025 [facility] Comment on above: Expected: 04/15/2025, Expires: Start: 04-15-2025 End: 07-15-2025 Hepatitis B virus surface Ag [Presence] in Serum HEPATITIS B SURFACE ANTIGEN Lab Routine Other ulcerative colitis with complication (HCC) Expected: 04/15/2025, Expires: 07/15/2025 [facility] Comment on above: Expected: 04/15/2025, Expires: Start: 04-15-2025 End: 04-15-2026 Iron and Iron binding capacity panel - Serum or Plasma IRON AND TIBC Lab Routine Other ulcerative colitis with complication (HCC) Expected: 04/15/2025, Expires: 04/15/2026 [facility] Comment on above: Expected: 04/15/2025, Expires: 6 Start: 04-15-2025 End: 07-15-2025 VARICELLA ZOSTER IGG VARICELLA ZOSTER IGG Lab Routine Other ulcerative colitis with complication (HCC) Expected: 04/15/2025, Expires: 07/15/2025 [facility] Comment on above: Expected: 04/15/2025, Expires: 5 Start: 05-27-2024 Covid-19 Vaccine () Covid-19 Vaccine () [facility] Start: 05-27-2024 Influenza vaccination [facility] Start: 05-08-2024 End: 05-08-2024 Patient encounter procedure 05/08/2024 11:10 AM EDT Office Visit Neurology [address] [id number] Ravinder De Los Santos MD [address] [facility] [address] [place] [address] 6m f/u Neurology Comment on above: 6m f/u Start: 05-03-2024 End: 08-02-2024 CBC W Auto Differential panel - Blood COMPLETE BLOOD COUNT AND DIFFERENTIAL Lab Routine 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, refractory (HCC) Expected: 05/03/2024, Expires: 08/02/2024 [facility] Comment on above: Expected: 05/03/2024, Expires: 4 Start: 05-03-2024 End: 08-02-2024 Comprehensive metabolic 2000 panel - Serum or Plasma COMPREHENSIVE METABOLIC PANEL Lab Routine 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, refractory (HCC) Expected: 05/03/2024, Expires: 08/02/2024 [facility] Comment on above: Expected: 05/03/2024, Expires: 4 Start: 05-03-2024 End: 08-02-2024 Valproate [Mass/volume] in Serum or Plasma VALPROIC ACID / DEPAKENE Lab Routine 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, refractory (HCC) Expected: 05/03/2024, Expires: 08/02/2024 [facility] Work Phone: Comment on above: Expected: 05/03/2024, Expires: Start: 01-11-2024 End: 04-11-2024 25-hydroxyvitamin D3 [Mass/volume] in Serum or Plasma VITAMIN D 25 HYDROXY Lab Routine Other ulcerative colitis with rectal bleeding (HCC) Expected: 01/11/2024, Expires: 04/11/2024 [facility] Work Phone: Comment on above: Expected: 01/11/2024, Expires: Start: 01-11-2024 End: 04-11-2024 Basic metabolic 2000 panel - Serum or Plasma BASIC METABOLIC PANEL Lab Routine Other ulcerative colitis with rectal bleeding (HCC) Expected: 01/11/2024, Expires: 04/11/2024 [facility] Work Phone: Comment on above: Expected: 01/11/2024, Expires: Start: 01-11-2024 End: 04-11-2024 BLOOD TB SCREEN BLOOD TB SCREEN Lab Routine Other ulcerative colitis with rectal bleeding (HCC) Expected: 01/11/2024, Expires: 04/11/2024 [facility] Work Phone: Comment on above: Expected: 01/11/2024, Expires: Start: 01-11-2024 End: 04-11-2024 C reactive protein [Mass/volume] in Serum or Plasma C-REACTIVE PROTEIN Lab Routine Other ulcerative colitis with rectal bleeding (HCC) Expected: 01/11/2024, Expires: 04/11/2024 [facility] Work Phone: Comment on above: Expected: 01/11/2024, Expires: Start: 01-11-2024 End: 04-11-2024 Calprotectin [Mass/mass] in Stool CALPROTECTIN,FECAL Lab Routine Other ulcerative colitis with rectal bleeding (HCC) Expected: 01/11/2024, Expires: 04/11/2024 [facility] Work Phone: Comment on above: Expected: 01/11/2024, Expires: Start: 01-11-2024 End: 04-11-2024 CBC W Auto Differential panel - Blood COMPLETE BLOOD COUNT AND DIFFERENTIAL Lab Routine Other ulcerative colitis with rectal bleeding (HCC) Expected: 01/11/2024, Expires: 04/11/2024 [facility] Work Phone: Comment on above: Expected: 01/11/2024, Expires: 4 Start: 01-11-2024 End: 04-11-2024 Erythrocyte sedimentation rate SEDIMENTATION RATE, WESTERGREN Lab Routine Other ulcerative colitis with rectal bleeding (HCC) Expected: 01/11/2024, Expires: 04/11/2024 [facility] Work Phone: Comment on above: Expected: 01/11/2024, Expires: 4 Start: 01-11-2024 End: 01-10-2025 Ferritin [Mass/volume] in Serum or Plasma FERRITIN Lab Routine Other ulcerative colitis with rectal bleeding (HCC) Expected: 01/11/2024, Expires: 01/10/2025 [facility] Work Phone: Comment on above: Expected: 01/11/2024, Expires: 5 Start: 01-11-2024 End: 04-11-2024 Gamma glutamyl transferase [Enzymatic activity/volume] in Serum or Plasma GGT Lab Routine Other ulcerative colitis with rectal bleeding (HCC) Expected: 01/11/2024, Expires: 04/11/2024 [facility] Work Phone: Comment on above: Expected: 01/11/2024, Expires: 4 Start: 01-11-2024 End: 04-11-2024 Hepatic function 2000 panel - Serum or Plasma HEPATIC FUNCTION PNL Lab Routine Other ulcerative colitis with rectal bleeding (HCC) Expected: 01/11/2024, Expires: 04/11/2024 [facility] Work Phone: Comment on above: Expected: 01/11/2024, Expires: 4 Start: 01-11-2024 End: 04-11-2024 HEPATITIS A ANTIBODY, IGG HEPATITIS A ANTIBODY, IGG Lab Routine Other ulcerative colitis with rectal bleeding (HCC) Expected: 01/11/2024, Expires: 04/11/2024 [facility] Work Phone: Comment on above: Expected: 01/11/2024, Expires: Start: 01-11-2024 End: 04-11-2024 Hepatitis B virus surface Ab [Presence] in Serum HEPATITIS B SURFACE ANTIBODY Lab Routine Other ulcerative colitis with rectal bleeding (HCC) Expected: 01/11/2024, Expires: 04/11/2024 [facility] Work Phone: Comment on above: Expected: 01/11/2024, Expires: Start: 01-11-2024 End: 04-11-2024 Hepatitis B virus surface Ag [Presence] in Serum HEPATITIS B SURFACE ANTIGEN Lab Routine Other ulcerative colitis with rectal bleeding (HCC) Expected: 01/11/2024, Expires: 04/11/2024 [facility] Work Phone: Comment on above: Expected: 01/11/2024, Expires: 4 Start: 01-11-2024 End: 01-10-2025 Iron and Iron binding capacity panel - Serum or Plasma IRON AND TIBC Lab Routine Other ulcerative colitis with rectal bleeding (HCC) Expected: 01/11/2024, Expires: 01/10/2025 [facility] Work Phone: Comment on above: Expected: 01/11/2024, Expires: 5 Start: 01-11-2024 End: 04-11-2024 VARICELLA ZOSTER IGG VARICELLA ZOSTER IGG Lab Routine Other ulcerative colitis with rectal bleeding (HCC) Expected: 01/11/2024, Expires: 04/11/2024 [facility] Work Phone: Comment on above: Expected: 01/11/2024, Expires: 4 Start: 09-26-2023 Behavioral Health Screening Behavioral Health Screening [facility] Start: 09-26-2023 Depression Assessment Depression Assessment [facility] Start: 08-31-2023 End: 10-31-2023 25-hydroxyvitamin D3 [Mass/volume] in Serum or Plasma VITAMIN D 25 HYDROXY Lab Routine Other ulcerative colitis with rectal bleeding (HCC) Vitamin D deficiency Expected: 08/31/2023, Expires: 10/31/2023 [facility] Work Phone: Comment on above: Expected: 08/31/2023, Expires: 4 Start: 08-31-2023 End: 10-31-2023 Basic metabolic 2000 panel - Serum or Plasma BASIC METABOLIC PNL Lab Routine Other ulcerative colitis with rectal bleeding (HCC) Vitamin D deficiency Expected: 08/31/2023, Expires: 10/31/2023 [facility] Work Phone: Comment on above: Expected: 08/31/2023, Expires: Start: 08-31-2023 End: 10-31-2023 C reactive protein [Mass/volume] in Serum or Plasma C-REACTIVE PROTEIN (CRP) Lab Routine Other ulcerative colitis with rectal bleeding (HCC) Vitamin D deficiency Expected: 08/31/2023, Expires: 10/31/2023 [facility] Work Phone: Comment on above: Expected: 08/31/2023, Expires: 4 Start: 08-31-2023 End: 10-31-2023 CBC W Auto Differential panel - Blood CBC + DIFF Lab Routine Other ulcerative colitis with rectal bleeding (HCC) Vitamin D deficiency Expected: 08/31/2023, Expires: 10/31/2023 [facility] Work Phone: Comment on above: Expected: 08/31/2023, Expires: Start: 08-31-2023 End: 10-31-2023 Erythrocyte sedimentation rate SED RATE WESTERGREN Lab Routine Other ulcerative colitis with rectal bleeding (HCC) Vitamin D deficiency Expected: 08/31/2023, Expires: 10/31/2023 [facility] Work Phone: Comment on above: Expected: 08/31/2023, Expires: 4 Start: 08-31-2023 End: 06-01-2024 Ferritin [Mass/volume] in Serum or Plasma FERRITIN BLD Lab Routine Other ulcerative colitis with rectal bleeding (HCC) Vitamin D deficiency Expected: 08/31/2023, Expires: 06/01/2024 [facility] Work Phone: Comment on above: Expected: 08/31/2023, Expires: 4 Start: 08-31-2023 End: 10-31-2023 Gamma glutamyl transferase [Enzymatic activity/volume] in Serum or Plasma GGT BLD Lab Routine Other ulcerative colitis with rectal bleeding (HCC) Vitamin D deficiency Expected: 08/31/2023, Expires: 10/31/2023 [facility] Work Phone: Comment on above: Expected: 08/31/2023, Expires: Start: 08-31-2023 End: 10-31-2023 Hepatic function 2000 panel - Serum or Plasma HEPATIC FUNCTION PNL Lab Routine Other ulcerative colitis with rectal bleeding (HCC) Vitamin D deficiency Expected: 08/31/2023, Expires: 10/31/2023 [facility] Work Phone: Comment on above: Expected: 08/31/2023, Expires: 4 Start: 08-31-2023 End: 06-01-2024 Iron and Iron binding capacity panel - Serum or Plasma IRON + TIBC Lab Routine Other ulcerative colitis with rectal bleeding (HCC) Vitamin D deficiency Expected: 08/31/2023, Expires: 06/01/2024 [facility] Work Phone: Comment on above: Expected: 08/31/2023, Expires: Start: 07-11-2023 End: 09-10-2023 Valproate [Mass/volume] in Serum or Plasma VALPROIC A/DEPAKENE Lab Routine 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, intractable, with status epilepticus (HCC) Expected: 07/11/2023, Expires: 09/10/2023 [facility] Work Phone: Comment on above: Expected: 07/11/2023, Expires: Start: 05-27-2023 Covid-19 Vaccine ( season) Covid-19 Vaccine () [facility] Start: 05-27-2023 Influenza vaccination [facility] Start: 03-30-2023 Adult depression screening assessment DEPRESSION SCREENING [facility] Start: 03-02-2023 End: 05-02-2023 Calprotectin [Mass/mass] in Stool CALPROTECTIN,FECAL Lab Routine Other ulcerative colitis with rectal bleeding (HCC) Vitamin D deficiency Iron deficiency anemia due to chronic blood loss Expected: 03/02/2023 (Approximate), Expires: 05/02/2023 [facility] Work Phone: Comment on above: Expected: 03/02/2023 (Approximate), Expi res: 05/02/2023 Start: 02-23-2023 End: 04-25-2023 25-hydroxyvitamin D3 [Mass/volume] in Serum or Plasma VITAMIN D 25 HYDROXY Lab Routine Other ulcerative colitis with rectal bleeding (HCC) Vitamin D deficiency Iron deficiency anemia due to chronic blood loss Expected: 02/23/2023, Expires: 04/25/2023 [facility] Work Phone: Comment on above: Expected: 02/23/2023, Expires: 3 Start: 02-23-2023 End: 04-25-2023 Basic metabolic 2000 panel - Serum or Plasma BASIC METABOLIC PNL Lab Routine Other ulcerative colitis with rectal bleeding (HCC) Vitamin D deficiency Iron deficiency anemia due to chronic blood loss Expected: 02/23/2023, Expires: 04/25/2023 [facility] Work Phone: Comment on above: Expected: 02/23/2023, Expires: 3 Start: 02-23-2023 End: 04-25-2023 C reactive protein [Mass/volume] in Serum or Plasma C-REACTIVE PROTEIN (CRP) Lab Routine Other ulcerative colitis with rectal bleeding (HCC) Vitamin D deficiency Iron deficiency anemia due to chronic blood loss Expected: 02/23/2023, Expires: 04/25/2023 [facility] Work Phone: Comment on above: Expected: 02/23/2023, Expires: 3 Start: 02-23-2023 End: 04-25-2023 CBC W Auto Differential panel - Blood CBC + DIFF Lab Routine Other ulcerative colitis with rectal bleeding (HCC) Vitamin D deficiency Iron deficiency anemia due to chronic blood loss Expected: 02/23/2023, Expires: 04/25/2023 [facility] Work Phone: Comment on above: Expected: 02/23/2023, Expires: 3 Start: 02-23-2023 End: 04-25-2023 Erythrocyte sedimentation rate SED RATE WESTERGREN Lab Routine Other ulcerative colitis with rectal bleeding (HCC) Vitamin D deficiency Iron deficiency anemia due to chronic blood loss Expected: 02/23/2023, Expires: 04/25/2023 [facility] Work Phone: Comment on above: Expected: 02/23/2023, Expires: 3 Start: 02-23-2023 End: 02-24-2024 Ferritin [Mass/volume] in Serum or Plasma FERRITIN BLD Lab Routine Other ulcerative colitis with rectal bleeding (HCC) Vitamin D deficiency Iron deficiency anemia due to chronic blood loss Expected: 02/23/2023, Expires: 02/24/2024 [facility] Work Phone: Comment on above: Expected: 02/23/2023, Expires: 4 Start: 02-23-2023 End: 04-25-2023 Gamma glutamyl transferase [Enzymatic activity/volume] in Serum or Plasma GGT BLD Lab Routine Other ulcerative colitis with rectal bleeding (HCC) Vitamin D deficiency Iron deficiency anemia due to chronic blood loss Expected: 02/23/2023, Expires: 04/25/2023 [facility] Work Phone: Comment on above: Expected: 02/23/2023, Expires: 3 Start: 02-23-2023 End: 04-25-2023 Hepatic function 2000 panel - Serum or Plasma HEPATIC FUNCTION PNL Lab Routine Other ulcerative colitis with rectal bleeding (HCC) Vitamin D deficiency Iron deficiency anemia due to chronic blood loss Expected: 02/23/2023, Expires: 04/25/2023 [facility] Work Phone: Comment on above: Expected: 02/23/2023, Expires: 3 Start: 02-23-2023 End: 02-24-2024 Iron and Iron binding capacity panel - Serum or Plasma IRON + TIBC Lab Routine Other ulcerative colitis with rectal bleeding (HCC) Vitamin D deficiency Iron deficiency anemia due to chronic blood loss Expected: 02/23/2023, Expires: 02/24/2024 [facility] Work Phone: Comment on above: Expected: 02/23/2023, Expires: 4 Start: 2023 Anxiety Screening Anxiety Screening [facility] Start: 2023 Depression Screening Depression Screening [facility] Start: 2023 HIV SCREENING HIV SCREENING [facility] Start: 2023 HIV screening HIV Screening [facility] Start: 10-26-2022 End: 12-26-2022 25-hydroxyvitamin D3 [Mass/volume] in Serum or Plasma [facility] Work Phone: Comment on above: Expected: 10/26/2022, Expires: 3 Start: 10-26-2022 End: 12-26-2022 C reactive protein [Mass/volume] in Serum or Plasma [facility] Work Phone: Comment on above: Expected: 10/26/2022, Expires: 3 Start: 10-26-2022 End: 12-26-2022 Calprotectin [Mass/mass] in Stool CALPROTECTIN,FECAL Lab Routine Diarrhea, unspecified type Blood in stool Expected: 10/26/2022 (Approximate), Expires: 12/26/2022 [facility] Work Phone: Comment on above: Expected: 10/26/2022 (Approximate), Expi res: 12/26/2022 Start: 10-26-2022 End: 12-26-2022 Clostridioides difficile toxin genes [Presence] in Stool by GAYE with probe detection C. DIFFICILE PCR Lab Routine Diarrhea, unspecified type Blood in stool Expected: 10/26/2022 (Approximate), Expires: 12/26/2022 [facility] Work Phone: Comment on above: Expected: 10/26/2022 (Approximate), Expi res: 12/26/2022 Start: 10-26-2022 End: 12-26-2022 Erythrocyte sedimentation rate [facility] Work Phone: Comment on above: Expected: 10/26/2022, Expires: 3 Start: 10-26-2022 End: 10-26-2023 Ferritin [Mass/volume] in Serum or Plasma [facility] Work Phone: Comment on above: Expected: 10/26/2022, Expires: 4 Start: 10-26-2022 End: 12-26-2022 Gamma glutamyl transferase [Enzymatic activity/volume] in Serum or Plasma [facility] Work Phone: Comment on above: Expected: 10/26/2022, Expires: 3 Start: 10-26-2022 End: 10-26-2023 Iron and Iron binding capacity panel - Serum or Plasma [facility] Work Phone: Comment on above: Expected: 10/26/2022, Expires: 4 Start: 09-26-2022 DEPRESSION ASSESSMENT DEPRESSION ASSESSMENT [facility] Start: 09-06-2022 End: 07-05-2023 EPIL EEG ROUTINE EPIL EEG ROUTINE NEUROLOGY Routine Juvenile absence epilepsy (HCC) Expected: 09/06/2022 (Approximate), Expires: 07/05/2023 [facility] Work Phone: Comment on above: Expected: 09/06/2022 (Approximate), Expi res: 07/05/2023 Start: 05-27-2022 Influenza vaccination INFLUENZA (#1) [facility] Start: 2021 Meningococcal B Vaccine (1 of 2 - Standard) Meningococcal B Vaccine (1 of 2 - Standard) [facility] Start: 2021 Meningococcal B Vaccine: Consider Based On Risk (1 of 2 - Patient Seeks Protection) Meningococcal B Vaccine: Consider Based On Risk (1 of 2 - Patient Seeks Protection) [facility] Start: 02-13-2020 HPV Vaccine (1 - Male 3-dose series) HPV Vaccine (1 - Male 3-dose series) [facility] Start: 2019 PEDS TO ADULT TRANSITION ANNUAL ASSESSMENT PEDS TO ADULT TRANSITION ANNUAL ASSESSMENT [facility] Start: 02-13-2016 HPV VACCINE (1 - Male 2-dose series) HPV VACCINE (1 - Male 2-dose series) [facility] Start: 2015 Meningococcal B Vaccine: Consider Based On Risk (1 of 4 - Increased Risk) Meningococcal B Vaccine: Consider Based On Risk (1 of 4 - Increased Risk) [facility] Start: 2015 MENINGOCOCCAL B: Consider based on risk (1 of 2 - Risk Bexsero 2-dose series) MENINGOCOCCAL B: Consider based on risk (1 of 2 - Risk Bexsero 2-dose series) [facility] Start: 2015 MENINGOCOCCAL B: Consider based on risk (1 of 4 - Increased Risk Bexsero 2-dose series) MENINGOCOCCAL B: Consider based on risk (1 of 4 - Increased Risk Bexsero 2-dose series) [facility] Start: 2015 MENINGOCOCCAL B: Consider based on risk (1 of 4 - Increased Risk) MENINGOCOCCAL B: Consider based on risk (1 of 4 - Increased Risk) [facility] Start: 2014 HPV VACCINE (1 - Male 2-dose series) HPV VACCINE (1 - Male 2-dose series) [facility] Start: 2011 PNEUMOCOCCAL (1 - PPSV23) PNEUMOCOCCAL (1 - PPSV23) [facility] Start: 2011 Pneumococcal vaccination [facility] Start: 2005 COVID-19 VACCINE (#1) COVID-19 VACCINE (#1) [facility] Calprotectin [Mass/mass] in Stool CALPROTECTIN,FECAL Lab Routine Other ulcerative colitis with rectal bleeding (HCC) Ordered: 06/01/2023 [facility] Work Phone: Comment on above: Ordered: 06/01/2023 End: 07-04-2023 CBC W Auto Differential panel - Blood CBC + DIFF Lab Routine Juvenile absence epilepsy (HCC) Every 3 months for 4 Occurrences starting 07/05/2022 until 07/04/2023 [facility] Work Phone: Comment on above: Every 3 months for 4 Occurrences startin g 07/05/2022 until 07/04/2023 End: 07-04-2023 Comprehensive metabolic 2000 panel - Serum or Plasma COMP METABOLIC PANEL Lab Routine Juvenile absence epilepsy (HCC) Every 3 months for 4 Occurrences starting 07/05/2022 until 07/04/2023 [facility] Work Phone: Comment on above: Every 3 months for 4 Occurrences startin g 07/05/2022 until 07/04/2023 ENTERIC BACTERIAL PANEL BY PCR ENTERIC BACTERIAL PANEL BY PCR Lab Routine Diarrhea, unspecified type Blood in stool Ordered: 10/26/2022 [facility] Work Phone: Comment on above: Ordered: 10/26/2022 EPIL EEG ROUTINE EPIL EEG ROUTIN E NEUROLOGY Routine Partial epilepsy with impairment of consciousness (HCC) Ordered: 11/01/2023 [facility] Work Phone: Comment on above: Ordered: 11/01/2023 End: 07-04-2023 ETHOSUXIMID/ZARONTIN ETHOSUXIMID/ZARONTIN Lab Routine Juvenile absence epilepsy (HCC) Every 3 months for 4 Occurrences starting 07/05/2022 until 07/04/2023 [facility] Work Phone: Comment on above: Every 3 months for 4 Occurrences startin g 07/05/2022 until 07/04/2023 Hepa vaccine 2 dose schedule ped/adolesc im use HEP A VACCINE, 2-DOSE, PED/ADOL (HAVRIX-PEDS, VAQTA-PEDS) Immunization/Injection Routine Encounter for immunization Ordered: 02/24/2023 [facility] Work Phone: Comment on above: Ordered: 02/24/2023 Hepb vaccine ped/adolesc 3 dose schedule im HEP B VACCINE, 3-DOSE, AGE 0 YR - 19 YR (ENGERIX-B, RECOMBIVAX HB) Immunization/Injection Routine Encounter for immunization Ordered: 02/24/2023 [facility] Work Phone: Comment on above: Ordered: 02/24/2023 Hepb vaccine ped/adolesc 3 dose schedule im HEP B VACCINE, 3-DOSE, AGE 0 YR - 19 YR (ENGERIX-B, RECOMBIVAX HB) Immunization/Injection Routine Encounter for immunization Ordered: 04/14/2023 [facility] Work Phone: Comment on above: Ordered: 04/14/2023 End: 12-16-2023 MRI ABD ENTEROG WO/W IVCON MRI ABD ENTEROG WO/W IVCON Radiology Routine Other ulcerative colitis with rectal bleeding (HCC) 1 Occurrences starting 11/16/2022 until 12/16/2023 [facility] Work Phone: Comment on above: 1 Occurrences starting 11/16/2022 until 12/16/2023 End: 12-31-2022 MRI ABD ENTEROG WO/W IVCON [facility] Work Phone: Comment on above: 1 Occurrences starting 12/31/2022 until 12/31/2022 End: 12-16-2023 Mri pelvis w/o & w/contrast material MRI PEL ENTEROG WO/W IVCON Radiology Routine Other ulcerative colitis with rectal bleeding (HCC) 1 Occurrences starting 11/16/2022 until 12/16/2023 [facility] Work Phone: Comment on above: 1 Occurrences starting 11/16/2022 until 12/16/2023 End: 12-31-2022 Mri pelvis w/o & w/contrast material [facility] Work Phone: Comment on above: 1 Occurrences starting 12/31/2022 until 12/31/2022 Patient Education What Is Ulcera tive Colitis? ED Lower GI Bleeding (Stable) [facility] Work Phone: Patient referral [facility] Work Phone: Jonn vaccine live for subcutaneous use VARICELLA VACCINE (VARIVAX) Immunization/Injection Routine Encounter for immunization Ordered: 02/24/2023 [facility] Work Phone: Comment on above: Ordered: 02/24/2023 Jonn vaccine live for subcutaneous use VARICELLA VACCINE (VARIVAX) Immunization/Injection Routine Encounter for immunization Ordered: 04/14/2023 [facility] Work Phone: Comment on above: Ordered: 04/14/2023 [facility] Immunizations Immunization Date Immunization Notes Care Provider Halima xie 09-08-2023 hepatitis B vaccine, pediatric or pediatric/adolescent dosage Mi Nurse Work Phone: [facility] Work Phone: 04-21-2023 hepatitis B vaccine, pediatric or pediatric/adolescent dosage Mi Nurse Work Phone: [facility] Work Phone: 04-21-2023 varicella virus vaccine Mi Zaire rodriguez Work Phone: [facility] Work Phone: 03-07-2023 hepatitis A vaccine, pediatric/adolescent dosage, 2 dose schedule Ravinder De Los Santos MD Work Phone: [facility] Work Phone: 03-07-2023 hepatitis B vaccine, pediatric or pediatric/adolescent dosage Ravinder De Los Santos MD Work Phone: [facility] Work Phone: 03-07-2023 varicella virus vaccine Ken De Los Santos MD Work Phone: [facility] Work Phone: 03-30-2022 meningococcal polysaccharide (groups A, C, Y and W-135) diphtheria toxoid conjugate vaccine (MCV4P) Yani Pratt APRN.CNP Work Phone: [facility] 03-30-2022 Meningococcal, MCV4, unspecified conjugate formulation(groups A, C, Y and W-135) Yani Funesagen SOCIOCULTURAL ANTHROPOLOGY PROFESSOR.[facility] Work Phone: [facility] Work Phone: 04-04-2017 meningococcal polysaccharide (groups A, C, Y and W-135) diphtheria toxoid conjugate vaccine (MCV4P) Yani Haagen SOCIOCULTURAL ANTHROPOLOGY PROFESSOR.[facility] Work Phone: [facility] Work Phone: 04-04-2017 tetanus toxoid, redu cara diphtheria toxoid, and acellular pertussis vaccine, adsorbed Yani Haagen SOCIOCULTURAL ANTHROPOLOGY PROFESSOR.[facility] Work Phone: [facility] Work Phone: 07-07-2013 influenza virus vacc ine, live, attenuated, for intranasal use Yani Funesagen SOCIOCULTURAL ANTHROPOLOGY PROFESSOR.[facility] Work Phone: [facility] Work Phone: 07-07-2013 influenza virus vacc ine, unspecified formulation Ravinder De Los Santos MD Work Phone: [facility] 08-07-2011 influenza virus vacc ine, live, attenuated, for intranasal use Yani Haagen SOCIOCULTURAL ANTHROPOLOGY PROFESSOR.[facility] Work Phone: [facility] Work Phone: 07-11-2010 influenza virus vacc ine, live, attenuated, for intranasal use Yani Haagen SOCIOCULTURAL ANTHROPOLOGY PROFESSOR.[facility] Work Phone: [facility] Work Phone: 03-11-2010 diphtheria, tetanus toxoids and acellular pertussis vaccine Yani Haagen SOCIOCULTURAL ANTHROPOLOGY PROFESSOR.[employer] Work Phone: [facility] Work Phone: 03-11-2010 measles, mumps and rubella virus vaccine Yani Haagen SOCIOCULTURAL ANTHROPOLOGY PROFESSOR.[facility] Work Phone: [facility] Work Phone: 03-11-2010 varicella virus vaccine Chri minor Haagen SOCIOCULTURAL ANTHROPOLOGY PROFESSOR.[facility] Work Phone: [facility] Work Phone: 10-17-2009 influenza virus vacc ine, live, attenuated, for intranasal use Yani Pratt SOCIOCULTURAL ANTHROPOLOGY PROFESSOR.[employer] Work Phone: [facility] Work Phone: 08-10-2008 influenza virus vacc ine, unspecified formulation Yani Prtat SOCIOCULTURAL ANTHROPOLOGY PROFESSOR.[employer] Work Phone: [facility] Work Phone: 08-23-2006 influenza virus vacc ine, unspecified formulation Yani Pratt SOCIOCULTURAL ANTHROPOLOGY PROFESSOR.[employer] Work Phone: [facility] Work Phone: 05-17-2006 diphtheria, tetanus toxoids and acellular pertussis vaccine Yanihoracio Pratt SOCIOCULTURAL ANTHROPOLOGY PROFESSOR.[facility] Work Phone: [facility] Work Phone: 05-17-2006 haemophilus influenz ae type b vaccine, HbOC conjugate Yani Pratt SOCIOCULTURAL ANTHROPOLOGY PROFESSOR.[employer] Work Phone: [facility] Work Phone: 05-17-2006 poliovirus vaccine, inactivated Yani Pratt SOCIOCULTURAL ANTHROPOLOGY PROFESSOR.[employer] Work Phone: [facility] Work Phone: 02-23-2006 measles, mumps and rubella virus vaccine Yani Pratt SOCIOCULTURAL ANTHROPOLOGY PROFESSOR.[employer] Work Phone: [facility] Work Phone: 02-23-2006 pneumococcal conjuga te vaccine, 7 valent Yani Pratt SOCIOCULTURAL ANTHROPOLOGY PROFESSOR.[employer] Work Phone: [facility] Work Phone: 02-23-2006 varicella virus vaccine Chri mnior Pratt SOCIOCULTURAL ANTHROPOLOGY PROFESSOR.[employer] Work Phone: [facility] Work Phone: 2005 hepatitis B vaccine, pediatric or pediatric/adolescent dosage Yani Pratt SOCIOCULTURAL ANTHROPOLOGY PROFESSOR.[employer] Work Phone: [facility] Work Phone: 2005 poliovirus vaccine, inactivated Yani Pratt SOCIOCULTURAL ANTHROPOLOGY PROFESSOR.[employer] Work Phone: [facility] Work Phone: 2005 diphtheria, tetanus toxoids and acellular pertussis vaccine Yani Haagen SOCIOCULTURAL ANTHROPOLOGY PROFESSOR.[employer] Work Phone: [facility] Work Phone: 2005 haemophilus influenz ae type b vaccine, HbOC conjugate Yani Haagen SOCIOCULTURAL ANTHROPOLOGY PROFESSOR.[employer] Work Phone: [facility] Work Phone: 2005 influenza virus vacc ine, unspecified formulation Yani Haagen SOCIOCULTURAL ANTHROPOLOGY PROFESSOR.[employer] Work Phone: [facility] Work Phone: 2005 pneumococcal conjuga te vaccine, 7 valent Yani Haagen SOCIOCULTURAL ANTHROPOLOGY PROFESSOR.[employer] Work Phone: [facility] Work Phone: 2005 diphtheria, tetanus toxoids and acellular pertussis vaccine Yani Haagen SOCIOCULTURAL ANTHROPOLOGY PROFESSOR.[employer] Work Phone: [facility] 2005 haemophilus influenz ae type b vaccine, HbOC conjugate Yani Haagen SOCIOCULTURAL ANTHROPOLOGY PROFESSOR.[employer] Work Phone: [facility] 2005 pneumococcal conjuga te vaccine, 7 valent Yani Haagen SOCIOCULTURAL ANTHROPOLOGY PROFESSOR.[employer] Work Phone: [facility] 2005 poliovirus vaccine, inactivated Yani Haagen SOCIOCULTURAL ANTHROPOLOGY PROFESSOR.[employer] Work Phone: [facility] 2005 diphtheria, tetanus toxoids and acellular pertussis vaccine Yani Haagen SOCIOCULTURAL ANTHROPOLOGY PROFESSOR.[employer] Work Phone: [facility] 2005 haemophilus influenz ae type b vaccine, HbOC conjugate Yani Haagen SOCIOCULTURAL ANTHROPOLOGY PROFESSOR.[employer] Work Phone: [facility] 2005 hepatitis B vaccine, pediatric or pediatric/adolescent dosage Yani Haagen SOCIOCULTURAL ANTHROPOLOGY PROFESSOR.[employer] Work Phone: [facility] 2005 pneumococcal conjuga te vaccine, 7 valent Yani Haagen SOCIOCULTURAL ANTHROPOLOGY PROFESSOR.[employer] Work Phone: [facility] 2005 poliovirus vaccine, inactivated Yani Hajenelle CLANCY.[employer] Work Phone: [facility] 2005 hepatitis B vaccine, pediatric or pediatric/adolescent dosage Yani Pratt SOCIOCULTURAL ANTHROPOLOGY PROFESSOR.[employer] Work Phone: [facility] Payers Date Payer Category Payer Self-pay [id number] 2024 Unknown [id number] 2021 [employer] Blue [facility] BLUE ACCE PPO [id number] 2021 Unknown [facility] [id number] 2021-Present [phone] [id number] 2021 Unknown [id number] 2021 Unknown [id number] Unknown [facility] [id number] Unknown [id number] Unknown [id number] Unknown [id number] Unknown [id number] Unknown [id number] Social History Date Type Detail Facility Start: 05-02-2015 End: 09-16-2022 Tobacco smoking status NHIS Never smoked tobacco [facility] Start: 05-02-2015 End: 09-16-2022 Tobacco use and exposure Smokeless tobacco non-user [facility] Start: 03-30-2022 End: 09-16-2022 Alcohol intake Not Asked [facility] Start: 03-24-2022 History SDOH Housing Unable to Pay 3 [facility] Start: 05-02-2015 End: 09-16-2022 Tobacco Comment mother smokes outside [facility] Start: 2005 Sex Assigned At Not on file [facility] History of tobacco use Passive smoker [facility] Start: 10-22-2022 Tobacco smoking stat us [facility] Unknown if ever smoked [facility] Start: 2005 Sex Assigned At Male [facility] Start: 10-26-2022 End: 05-08-2024 Alcohol intake Lifetime non-drinker (finding) [facility] Start: 03-24-2022 End: 02-23-2023 History of Social function [facility] Start: 03-24-2022 End: 02-23-2023 Tobacco use panel [facility] How hard is it for y ou to pay for the very basics like food, housing, medical care, and heating Patient refused [facility] (I/We) worried sis er (my/our) food would run out before (I/we) got money to buy more. DK or Refused [facility] Start: 12-31-2024 Sex Male (finding) [facility] Functional Status Date Assessment Result Facility 05-02-2015 Are you deaf, or do you have serious difficulty hearing No 05/02/2015 1:04 PM EDT Alicia Leal RN No [facility] 05-02-2015 Are you blind, or do you have serious difficulty seeing, even when wearing glasses No 05/02/2015 1:04 PM EDT Alicia Leal RN No [facility] 05-02-2015 Do you have serious difficulty walking or climbing stairs No 05/02/2015 1:04 PM EDT Alicia Leal RN No [facility] 05-02-2015 Do you have difficul ty dressing or bathing No 05/02/2015 1:04 PM EDT Alicia Leal RN No [facility] Mental Status Date Assessment Result Facility 05-02-2015 Because of a physica l, mental, or emotional condition, do you have serious difficulty concentrating, remembering, or making decisions No 05/02/2015 1:04 PM EDT Alicia Leal RN No [facility] Clinical Notes 02-27-2008 to 04-15-2025 Patient InstructionsWilliams Francis MD - 04/15/2025 4:00 PM EDTTelephone Encounter - Verena Francis RN - 03/28/2025 4:36 PM EDTTelephone Encounter - Verena Francis RN - 03/28/2025 4:36 PM EDT Note Date & Type Note Facility 04-15-2025 Instructions Williams Francis MD - 04/15/2025 4:23 PM EDT - Stool study and lab work - Continue with regular eye screens - Wear sunscreen when outdoors - If note done, make sure to complete Hep B, Hep A, and varicella boosters at primary care office - If note done, make sure to complete HPV series - Make sure to receive flu and Covid vaccines - Visit the Crohn's and Colitis [employer] web site ([email or web address] [email or web address]/) documented in this encounter [facility] 07-21-2025 History of Presen t illness Narrative Images from the original note were not included. PEDIATRIC GASTROENTEROLOGY, HEPATOLOGY, & NUTRITION [address] [facility] [place] [address] Williams Francis MD This is a virtual visit using [employer] video visit. It required patient-provider interaction for the medical decision making as documented below. I have communicated my name and active licensure. The patient's identity and physical location were verified at the time of this visit. Either the patient or their legal medical collections representative has been informed of the risks and benefits of -- and alternatives to -- treatment through a remote evaluation and consents to proceed with the evaluation remotely. SOURCE OF INFORMATION Primary Care Provider: Luis Norwood DO History obtained from: Self HISTORY OF PRESENT ILLNESS: Bishop Srinivasan is a 20 year old man who represents having been lost to follow-up. He has last seen by me 01/11/24. At his last visit, recommended continuing mesalamine. He did not complete lab work or stool studies as recommended. Since his last visit he has been in remission, noting that he has been symptoms free and back to baseline, feeling well without belly pain. BMs every 1-2 days, formed. Denies bloody stools. He does not have any night time symptoms. He has not been taking mesalamine for over a year. He is planning to switch to adult GI. He remains on Valproic acid for seizures without any recent issues. As you know, sine right before 2021 he started to have loose stools 1-2 times a day, pieces mixed with water, and would see blood on the toilet paper every time he wiped. He was started on Pepcid without improvement. By around New Years he continued to have loose stools, pieces mixed with blood, after which there would be a few drops of bright red blood in the toilet bowel. BMs currently are 2-3 times a day with blood in the toilet bowl. He has also started to have intermittent belly pain all over, worse for about 30 seconds after having a BM. He has difficulty falling asleep due to pain, but has not woken up at night needing to go to the bathroom. He has started to take Imodium to prevent symptoms while in school. Prior to 2021 , stools were 3-4 times a week, like thick logs. He would need to strain a little, but otherwise not much difficulty. Denies seeing blood. Current Diagnosis: Ulcerative Colitis, diagnosed: 11/04/22 Macroscopic Disease Location: segmental colitis from the rectum to the hepatic flexure, cecal patch around the appendix Disease Phenotype: Inflammatory Perianal Disease: No History of Surgery: No Last IBD Related Hospital Admission: none Endoscopies: 11/04/22 EGD: Normal Colonoscopy: Segmental colitis from the rectum to the hepatic flexure which consisted of erythema, friability, complete loss of vascularity, and superficial ulceration. The rectosigmoid area was a Tony 3. The left colon, transverse colon and hepatic flexure were a Tnoy 2. There is an obvious transition to normal mucosa after the hepatic flexure. There was a cecal patch around the appendix that was erythematous, friable with shallow ulceration. The ileocecal valve and terminal ileum were visually normal. Pathology: A. Duodenum, biopsy: Small bowel mucosa with no diagnostic abnormality. B. Stomach, biopsy: Mild chronic gastritis with focal activity (see comment). C. Distal esophagus, biopsy: Squamous mucosa with no diagnostic abnormality. D. Terminal ileum, biopsy: Small bowel mucosa with no diagnostic abnormality. E. Cecum, biopsy: Colonic mucosa with no diagnostic abnormality. F. Right colon, biopsy: Colonic mucosa with no diagnostic abnormality. G. Transverse colon, biopsy: Chronic moderately active colitis, negative for granulomas or dysplasia. H. Left colon, biopsy: Chronic moderately active colitis, negative for granulomas or dysplasia. I. Rectum, biopsy: Chronic moderately active proctitis, negative for granulomas or dysplasia. Imaging: Normal MRE (12/31/22) Extra-intestinal manifestations: None Labs: Hemoglobin Date Value Ref Range Status 05/07/2024 14.4 13.0 - 17.0 g/dL Final 11/14/2023 14.6 13.0 - 17.0 g/dL Final 07/07/2023 15.2 13.0 - 17.0 g/dL Final Hematocrit Date Value Ref Range Status 05/07/2024 44.2 39.0 - 51.0 % Final 11/14/2023 45.0 39.0 - 51.0 % Final 07/07/2023 46.1 39.0 - 51.0 % Final WBC Date Value Ref Range Status 05/07/2024 8.23 3.70 - 11.00 k/uL Final 11/14/2023 7.41 3.70 - 11.00 k/uL Final 07/07/2023 5.80 3.70 - 11.00 k/uL Final Platelet Count Date Value Ref Range Status 05/07/2024 198 150 - 400 k/uL Final 11/14/2023 204 150 - 400 k/uL Final 07/07/2023 182 150 - 400 k/uL Final CRP Date Value Ref Range Status 02/24/2023 <0.3 <0.9 mg/dL Final 10/26/2022 0.4 <0.9 mg/dL Final Sed Rate, Westergren Date Value Ref Range Status 02/24/2023 5 0 - 15 mm/hr Final 10/26/2022 27 (H) 0 - 15 mm/hr Final Albumin Date Value Ref Range Status 05/07/2024 4.7 3.9 - 4.9 g/dL Final 11/14/2023 4.6 3.9 - 4.9 g/dL Final 07/07/2023 4.7 3.9 - 4.9 g/dL Final ALT Date Value Ref Range Status 05/07/2024 7 (L) 10 - 54 U/L Final 11/14/2023 16 10 - 54 U/L Final 07/07/2023 16 10 - 54 U/L Final Calprotectin, Fecal Date Value Ref Range Status 10/28/2022 2,908.9 (H) 0 - 50 mg/kg Final Comment: INTERPRETIVE INFORMATION: Calprotectin, Fecal <50.0 mg/kg : Normal 50.0-120.0 mg/kg: Borderline. Test should be re-evaluated in 4-6 wks. >120.0 mg/kg: Abnormal Current IBD Medications: mesalamine Previous medications: Prednisone: last course Oct-January 2023 History of C.diff: none Eye exam: Date of last visit: April 2022 Iron Stores: Ferritin (goal >100 ng/mL) Transferrin (goal saturation >20%) Iron Date Value Ref Range Status 02/24/2023 115 41 - 186 ug/dL Final TIBC Date Value Ref Range Status 02/24/2023 330 232 - 386 ug/dL Final Transferrin Saturation Date Value Ref Range Status 02/24/2023 34.8 15.0 - 57.0 % Final Ferritin Date Value Ref Range Status 02/24/2023 30.6 30.3 - 565.7 ng/mL Final Therapy: iron supplement Bone Health: Vitamin D 25 Hydroxy (ng/mL) Date Value 02/24/2023 47.5 05/03/2016 41.9 Treatment: High dose vit D Bone-Mineral DEXA: Date: none Result: none Growth Growth Failure: no (Defined as Height percentile changed lower by two isobars or Height percentile <3rd percentile for age or Height velocity <3rd percentile for age) Last Ht 05/08/24 : 173.4 cm (5' 8.25) 04/07/23 : 172.7 cm (5' 8) 12/14/22 : 173 cm (5' 8.11) 10/26/22 : 173 cm (5' 8.11) 07/05/22 : 173 cm (5' 8.11) Nutritional Failure: No (Defined as: Weight percentile changed lower by two isobars or Weight loss >= 10% or Body mass index <3rd percentile for age) Weight: Last Wt 05/08/24 : 58.2 kg (128 lb 4.9 oz) 04/07/23 : 60.6 kg (133 lb 8 oz) 02/23/23 : 63.5 kg (140 lb) 12/14/22 : 60.3 kg (132 lb 14.4 oz) 11/16/22 : 60.3 kg (133 lb) No height and weight on file for this encounter. Immunizations: Hepatitis B: sAb: Negative sAg: Negative Varicella IgG: Negative Hepatitis B: Date 11/04/22 Surface Antibody negative, Surface Antigen negative Re-vaccination: Recommended Hepatitis A: 11/04/22, negative Re-vaccination: Recommended Varicella Ig11/04/22, negative (no live vaccines on immunosuppression) HPV (9-26 years old): unknown, Recommended (age appropriate) PPSV23 (one-time re-vaccination after 5 years): unknown, Recommended when available Last Flu Immunization: unknown COVID19 Vaccine: unknown COVID19 Infection: unknown Yearly labs: GGT Date Value Ref Range Status 02/24/2023 16 10 - 70 U/L Final Protein, Urine Date Value Ref Range Status 02/22/2009 neg Neg mg/dL Cancer Prevention: Dysplasia Screening: Due 2030 Diagnosed: 2022 UC or >1/3 of colon in CD 8 years after diagnosis PMH: epilepsy, IBD PSH: none FH: Mom with UC, PGM with IBD (unsure which), maternal great aunt with UC, otherwise negative for celiac disease, liver disease, autoimmune disease SH: parents , will occasionally see dad, has 2 paternal half brother ALLERGIES Allergen Reactions Sunscreen Rash, Itching Equate brand ACTIVE PROBLEM LIST Other Ulcerative Colitis With Rectal Bleeding (Hcc) - 11/16/2022 Vitamin D Deficiency - 11/16/2022 Childhood Absence Epilepsy, 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/06/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, Intractable, With Status Epilepticus (Hcc) - 11/03/2015 Well Child Check - 10/25/2014 Partial Epilepsy With Impairment of Consciousness (Hcc) - 06/11/2008 PAST MEDICAL HISTORY Diagnosis Date Early onset of delivery, delivered, with or without mention of antepartum condition 29 weeks gestation, Hospitalized 9 weeks in NICU [facility] Esophageal reflux Febrile seizure (HCC) Generalized seizure disorder (HCC) Hydrocele Hyposmolality and/or hyponatremia Respiratory distress syndrome in Seizures (HCC) febrile--see Neuro workup Unspecified and jaundice PAST SURGICAL HISTORY Procedure Laterality Date CIRCUMCISION PHOTOTHERAPY Social History Tobacco Use Smoking status: Never Passive exposure: Yes Smokeless tobacco: Never Tobacco comments: mother smokes outside Vaping Use Vaping status: Never Used Substance Use Topics Alcohol use: Never Drug use: Never FAMILY HISTORY Problem Relation Age of Onset None Father None Paternal Grandfather other (Ulcerative Colitiis) Paternal Grandmother other (GERD) Paternal Grandmother other (Ulcerative Colitis`) Mother other (ulcerative colitis) Maternal Grandmother great GM None Maternal Grandfather Current Outpatient Medications Medication Sig Dispense Refill divalproex DR (DEPAKOTE) 250 mg EC tablet Take 3 tablets by mouth two times a day. 540 tablet 3 Mesalamine (LIALDA) 1.2 gram EC tablet Take 4 tablets by mouth daily with breakfast. 120 tablet 2 No current facility-administered medications for this visit. LABS: Results for orders placed or performed in visit on 05/07/24 VALPROIC ACID / DEPAKENE Result Value Ref Range Valproic Acid 108.0 (H) 50.0 - 100.0 ug/mL COMPREHENSIVE METABOLIC PANEL Result Value Ref Range Protein, Total 7.5 6.3 - 8.0 g/dL Albumin 4.7 3.9 - 4.9 g/dL Calcium, Total 9.6 8.5 - 10.2 mg/dL Bilirubin, Total 0.6 0.2 - 1.3 mg/dL Alkaline Phosphatase 31 (L) 38 - 113 U/L AST 18 14 - 40 U/L ALT 7 (L) 10 - 54 U/L Glucose 82 74 - 99 mg/dL BUN 15 9 - 24 mg/dL Creatinine 0.91 0.73 - 1.22 mg/dL Sodium 139 136 - 144 mmol/L Potassium 4.4 3.7 - 5.1 mmol/L Chloride 104 98 - 107 mmol/L CO2 25 22 - 30 mmol/L Anion Gap 10 8 - 15 mmol/L Estimated Glomerular Filtration Rate 125 >=60 mL/min/1.73m COMPLETE BLOOD COUNT AND DIFFERENTIAL Result Value Ref Range WBC 8.23 3.70 - 11.00 k/uL RBC 4.84 4.20 - 6.00 m/uL Hemoglobin 14.4 13.0 - 17.0 g/dL Hematocrit 44.2 39.0 - 51.0 % MCV 91.3 80.0 - 100.0 fL MCH 29.8 26.0 - 34.0 pg MCHC 32.6 30.5 - 36.0 g/dL RDW-CV 12.2 11.5 - 15.0 % Platelet Count 198 150 - 400 k/uL MPV 11.2 9.0 - 12.7 fL Neutrophils % 66.8 % Abs Neut 5.49 1.45 - 7.50 k/uL Lymphocytes % 24.2 % Abs Lymph 1.99 1.00 - 4.00 k/uL Monocytes % 6.3 % Abs Chaves 0.52 <0.87 k/uL Eosinophils % 1.8 % Abs Eosin 0.15 <0.46 k/uL Basophils % 0.7 % Abs Baso 0.06 <0.11 k/uL Immature Granulocytes % 0.2 % Abs Immature Gran <0.03 <0.10 k/uL NRBC 0.0 /100 WBC Absolute nRBC <0.01 <0.01 k/uL Diff Type Auto REVIEW OF SYSTEMS: Constitutional: Negative HENT: Negative Eyes: Negative Respiratory: Negative Cardiovascular: Negative Gastrointestinal: As per HPI Endocrine: Negative Genitourinary: Negative Musculoskeletal: Negative Skin: Negative Allergic/Immunologic: Negative Neurological: Seizures (well controlled) Hematological: Negative Psychiatric/Behavioral: Negative PHYSICAL EXAMINATION There were no vitals taken for this visit. There is no height or weight on file to calculate BMI. There is no height or weight on file to calculate BSA. Last Wt 05/08/24 : 58.2 kg (128 lb 4.9 oz) 04/07/23 : 60.6 kg (133 lb 8 oz) 02/23/23 : 63.5 kg (140 lb) Physical Exam Limited due to virtual visit Constitutional: He appears well-developed and well-nourished. He is active. IMPRESSION: Bishop is a 20 year old male with ulcerative colitis with segmental colitis from the rectum to the hepatic flexure and cecal patch around the appendix. I had an extensive discussion with Bishop about IBD and UC. I am concerned that though he is asymptomatic, there may still be microscopic inflammation, especially since he stopped taking mesalamine. CBC and CMP from April 2024 reviewed and reassuring, but he has not had IBD labs since 2022. He is Hep A, Hep B, and varicella non-immune; he received boosted for Hep A and B, and should recheck levels. He is planning to switch to a local adult GI in the next 6-9 months. I encouraged him to reach out with any questions or concerns. PLAN: Patient Instructions - Stool study and lab work - Continue with regular eye screens - Wear sunscreen when outdoors - If note done, make sure to complete Hep B, Hep A, and varicella boosters at primary care office - If note done, make sure to complete HPV series - Make sure to receive flu and Covid vaccines - Visit the Crohn's and Colitis Foundation web site (https://www.crohnscolitisfounda tion.org/) Orders Placed This Encounter CBC with Differential Standing Status: Future Expected Date: 04/15/2025 Expiration Date: 07/15/2025 Basic Metabolic Panel Standing Status: Future Expected Date: 04/15/2025 Expiration Date: 07/15/2025 Hepatic Function Panel Standing Status: Future Expected Date: 04/15/2025 Expiration Date: 07/15/2025 GGT Standing Status: Future Expected Date: 04/15/2025 Expiration Date: 07/15/2025 CRP Standing Status: Future Expected Date: 04/15/2025 Expiration Date: 07/15/2025 ESR Standing Status: Future Expected Date: 04/15/2025 Expiration Date: 07/15/2025 Ferritin, Blood Standing Status: Future Expected Date: 04/15/2025 Expiration Date: 04/15/2026 Scheduling Instructions: In preparation for this test, do not take multivitamins or dietary supplements containing biotin (vitamin B7) for at least 12 hours. Biotin is commonly found in hair, skin, and nail supplements and multivitamins. Tell your doctor if you take supplements containing biotin as part of your medication history. Iron and TIBC, Blood Standing Status: Future Expected Date: 04/15/2025 Expiration Date: 04/15/2026 Vitamin D-25 Standing Status: Future Expected Date: 04/15/2025 Expiration Date: 07/15/2025 Hepatitis B Surface Antibody Qual Standing Status: Future Expected Date: 04/15/2025 Expiration Date: 07/15/2025 Hepatitis B Surface Antigen Standing Status: Future Expected Date: 04/15/2025 Expiration Date: 07/15/2025 Scheduling Instructions: In preparation for this test, do not take multivitamins or dietary supplements containing biotin (vitamin B7) for at least 12 hours. Biotin is commonly found in hair, skin, and nail supplements and multivitamins. Tell your doctor if you take supplements containing biotin as part of your medication history. Varicella Zoster, IgG Standing Status: Future Expected Date: 04/15/2025 Expiration Date: 07/15/2025 Quantiferon Gold Standing Status: Future Expected Date: 04/15/2025 Expiration Date: 07/15/2025 Calprotectin Standing Status: Future Expected Date: 04/16/2025 Expiration Date: 07/16/2025 Plan of care reviewed with patient / parent / undercollar baster, who verbalized understanding? Yes It was a pleasure to see your patient today. Thank you for allowing me to participate in the care of your patient. Please do not hesitate to contact me with any questions; I will be happy to discuss with you the plan of care. Sincerely, Williams Francis MD Pediatric Gastroenterology [facility] documented in this encounter [facility] 04-15-2025 Note HNO ID: [id number] Author: WILLIAMS FRANCIS MD Service: ? Author Type: Physician Type: Progress Notes Filed: 04/15/2025 16:33 Note Text: PEDIATRIC GASTROENTEROLOGY, HEPATOLOGY, AND NUTRITION [address] [facility] [place] [address] Williams Francis MD This is a virtual visit using [employer] video visit. It required patient-provider interaction for the medical decision making as documented below. I have communicated my name and active licensure. The patient's identity and physical location were verified at the time of this visit. Either the patient or their legal medical collections representative has been informed of the risks and benefits of -- and alternatives to -- treatment through a remote evaluation and consents to proceed with the evaluation remotely. SOURCE OF INFORMATION Primary Care Provider: Luis Norwood DO History obtained from: Self HISTORY OF PRESENT ILLNESS: Bishop Srinivasan is a 20 year old man who represents having been lost to follow-up. He has last seen by me 01/11/24. At his last visit, recommended continuing mesalamine. He did not complete lab work or stool studies as recommended. Since his last visit he has been in remission, noting that he has been symptoms free and back to baseline, feeling well without belly pain. BMs every 1-2 days, formed. Denies bloody stools. He does not have any night time symptoms. He has not been taking mesalamine for over a year. He is planning to switch to adult GI. He remains on Valproic acid for seizures without any recent issues. As you know, sine right before 2021 he started to have loose stools 1-2 times a day, pieces mixed with water, and would see blood on the toilet paper every time he wiped. He was started on Pepcid without improvement. By around New Years he continued to have loose stools, pieces mixed with blood, after which there would be a few drops of bright red blood in the toilet bowel. BMs currently are 2-3 times a day with blood in the toilet bowl. He has also started to have intermittent belly pain all over, worse for about 30 seconds after having a BM. He has difficulty falling asleep due to pain, but has not woken up at night needing to go to the bathroom. He has started to take Imodium to prevent symptoms while in school. Prior to 2021 , stools were 3-4 times a week, like thick logs. He would need to strain a little, but otherwise not much difficulty. Denies seeing blood. Current Diagnosis: Ulcerative Colitis, diagnosed: 11/04/22 Macroscopic Disease Location: segmental colitis from the rectum to the hepatic flexure, cecal patch around the appendix Disease Phenotype: Inflammatory Perianal Disease: No History of Surgery: No Last IBD Related Hospital Admission: none Endoscopies: 11/04/22 EGD: Normal Colonoscopy: Segmental colitis from the rectum to the hepatic flexure which consisted of erythema, friability, complete loss of vascularity, and superficial ulceration. The rectosigmoid area was a Tony 3. The left colon, transverse colon and hepatic flexure were a Tony 2. There is an obvious transition to normal mucosa after the hepatic flexure. There was a cecal patch around the appendix that was erythematous, friable with shallow ulceration. The ileocecal valve and terminal ileum were visually normal. Pathology: A. Duodenum, biopsy: Small bowel mucosa with no diagnostic abnormality. B. Stomach, biopsy: Mild chronic gastritis with focal activity (see comment). C. Distal esophagus, biopsy: Squamous mucosa with no diagnostic abnormality. D. Terminal ileum, biopsy: Small bowel mucosa with no diagnostic abnormality. E. Cecum, biopsy: Colonic mucosa with no diagnostic abnormality. F. Right colon, biopsy: Colonic mucosa with no diagnostic abnormality. G. Transverse colon, biopsy: Chronic moderately active colitis, negative for granulomas or dysplasia. H. Left colon, biopsy: Chronic moderately active colitis, negative for granulomas or dysplasia. I. Rectum, biopsy: Chronic moderately active proctitis, negative for granulomas or dysplasia. Imaging: Normal MRE (12/31/22) Extra-intestinal manifestations: None Labs: Hemoglobin Date Value Ref Range Status 05/07/2024 14.4 13.0 - 17.0 g/dL Final 11/14/2023 14.6 13.0 - 17.0 g/dL Final 07/07/2023 15.2 13.0 - 17.0 g/dL Final Hematocrit Date Value Ref Range Status 05/07/2024 44.2 39.0 - 51.0 % Final 11/14/2023 45.0 39.0 - 51.0 % Final 07/07/2023 46.1 39.0 - 51.0 % Final WBC Date Value Ref Range Status 05/07/2024 8.23 3.70 - 11.00 k/uL Final 11/14/2023 7.41 3.70 - 11.00 k/uL Final 07/07/2023 5.80 3.70 - 11.00 k/uL Final Platelet Count Date Value Ref Range Status 05/07/2024 198 150 - 400 k/uL Final 11/14/2023 204 150 - 400 k/uL Final 07/07/2023 182 150 - 400 k/uL Final CRP Date Value Ref Range Status 02/24/2023 <0.3 <0.9 mg/dL Final 10/26/2022 0.4 <0.9 mg/dL Final Sed Rate, Westergren Date Value Ref Range Status (more content not included)... [facility] 03-28-2025 Telephone encounter Note Letter generated and sent via and [place] mail. Verena Francis RN [facility] 03-28-2025 Miscellaneous Notes Letter generated and sent via and [employer] mail. Verena Francis RN Placed call to [phone] with NA. LM on updating checking in, requesting a return call to office, number provided or message. As there has not been any successful contact, called [phone], spoke with mom David, notifying calling as an outreach wondering how he was doing from an IBD perspective. She noted we would need to discuss that with him. Advised we have been unsuccessful with contact. She notes he sleeps until 300/400 in the afternoon. She will pass along the message that we called. Thanked her for her time. Verena Francis RN Placed call to [phone] with NA. LM on VM requesting a return call to the office and to check mc. MC message sent. Verena Francis RN Placed call to Bishop with NA. LM on VM calling to check in and see if able to schedule a follow up. Provided office number and also updated MC message was sent. Verena Francis RN Bishop has been lost to follow up, reaching out to see if able to help arrange OV. MC message sent. Verena Francis RN documented in this encounter [facility] 03-15-2025 Telephone encounter Note Placed call to [phone] with NA. LM on VM updating checking in, requesting a return call to office, number provided or MC message. As there has not been any successful contact, called [phone], spoke with mom David, notifying calling as an outreach wondering how he was doing from an IBD perspective. She noted we would need to discuss that with him. Advised we have been unsuccessful with contact. She notes he sleeps until 300/400 in the afternoon. She will pass along the message that we called. Thanked her for her time. Verena Francis RN [facility] 02-26-2025 Telephone encounter Note Placed call to [phone] with NA. LM on VM requesting a return call to the office and to check mc. MC message sent. Verena Francis RN [facility] 02-21-2025 Telephone encounter Note Placed call to Bishop with NA. LM on calling to check in and see if able to schedule a follow up. Provided office number and also updated MC message was sent. Verena Francis RN [facility] 02-19-2025 Telephone encounter Note Bishop has been lost to follow up, reaching out to see if able to help arrange OV. MC message sent. Verena Francis RN [facility] 11-13-2024 Evaluation note Diagnosis Onset Date Resolution Epilepsy acute November 13, 2024 12:53pm Memory loss acute October 12:53pm [facility] Work Phone: [phone]) 982-537908-26-2024 Telephone encounter Note* Telephone Encounter - Hanna Wang - 05/21/2024 2:41 PM EDT Patient reports information not received although fax confirmation was received. [facility]08-26-2024 Miscellaneous Notes* Telephone Encounter - Hanna Wang - 05/21/2024 2:41 PM EDT Patient reports information not received although fax confirmation was received. [facility] NoteHNO ID: [id number] Author: RAVINDER DE LOS SANTOS MD Service: ? Author Type: Physician Type: Progress Notes Filed: 05/08/2024 12:00 Note Text: [facility] Pediatric Epilepsy Date of Service: 05/08/2024 EPILEPSY CENTER - RETURN VISIT Last epilepsy visit: 11/11/2023 The patient was accompanied during the visit by the: mother REASON(S) FOR VISIT: Followup Classification Summary HISTORY OF PRESENTING ILLNESS Handedness: right-handed Age at onset of symptoms / seizures: 10 years Bishop is a 17-year-old right-handed young man, initially seen [place] [address] Feliciano Hines for febrile seizures between the ages of 3-5 years which manifested as bilateral convulsive activity. He had about 3 such seizures and stopped by 5 years of age. Around 10 yrs of age, he began having brief episodes of staring which were described as awareness of his his jaw moving up and down, followed by staring blankly, confusion and unresponsiveness, lasting around 30 seconds, occurring 1-4 times/day. He was seen by Dr. Lupillo Sun in September 2015, then admitted for 24-hour VEEG monitoring which showed he was having typical absence seizures. Ethosuximide was started after which he became seizure free. Dr. Porras last saw him in August 2016. He came off Ethosuximide after a couple of years (unclear how it was decided), then remained seizure free until this year. In November this year, after a night of poor sleep, Mom reports that he came out of the shower with his towel on but still wet, agitated, shivering, staring and walking in circles but not fully responsive for a couple of minutes. There were no eye blinking/rolling, oroalimentary or manual automatisms seen. Afterwards was tired and went to sleep.This was attributed to lack of sleep and breaking up with his girlfriend. On May 29, he had a second similar episode, again after lack of sleep. Mom heard a vocalization and found him standing in his bedroom, was staring and not resonding. He said Mommy once was repetitively moving his right arm. He recovered slowly after a couple of minutes and felt better after taking a nap for few hours. A third episode occurred a couple of weeks later described as losing muscle strength in his face and jaw and feeling weird. This feeling also preceded the previous 2 episodes. INTERVAL HISTORY Bishop was last seen by me in October 2023. He has done well on Depakote, now taking 750 mg bid. He continues to be seizure free clinically without any absence seizures. No side effects are reported. 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 His recent lab was drawn 2-3 hours post dose (peak level). Goes to bed around 1 am and gets up around 12 noon. REVIEW OF SYSTEMS: The family did not report additional concerns. There were no symptoms suggestive of cardiac, gastrointestinal, or endocrinal dysfunction. No abnormal skin findings. No symptoms suggestive of respiratory, genitourinary or musculoskeletal dysfunction. SEIZURE / EPISODE TYPE(S) ASSOCIATED CONDITIONS, DEVELOPMENTAL HISTORY, AND SCHOOL Early developmental milestones appear to have been normal. Graduated [employer]; not sure about future plans ANTISEIZURE THERAPIES CURRENT ANTISEIZURE THERAPIES Depakote 750 mg bid His most recent lab was drawn 2-3 hours post dose (peak level). ANTISEIZURE MEDICATION LEVELS (LAST 3) Latest Ref Rng AND Units 05/07/2024 11/14/2023 07/07/2023 Antiseizure Med Levels Valproic Acid 50.0 - 100.0 ug/mL 108.0 63.8 32.0 PRIOR/CURRENT ANTISEIZURE THERAPIES Ethosuximide Valproate Current Outpatient Medications Medication Sig Mesalamine (LIALDA) 1.2 gram EC tablet Take 4 tablets by mouth daily with breakfast. divalproex DR (DEPAKOTE) 250 mg EC tablet Take 3 tablets by mouth two times a day. glucagon (GLUCAGEN) 1 mg/mL injection Inject 1 mg intravenously one time only for 1 dose. For MRI Enterography, Inject 1 mg intravenously, as directed. Slow push at the appropriate time during MRI Scan No current facility-administered medications for this visit. ALLERGIES Allergen Reactions Sunscreen Rash, Itching Equate brand PATIENT-ENTERED DATA: No Data Recorded No data to display SOCIAL HISTORY Mom 41 yrs, has ulcerative colitis, anxiety, hpertension, eczema Dad 47 yrs Parents are Has 2 half-brothers (not related). No family history of seizures PREVIOUS EPILEPSY EVALUATIONS: VEEG monitoring November 03-2015: Interictal: 3 Hz Eric Wave Complex, Generalized, Maximum Left Hemisphere Ictal: EEG seizure, Generalized, Maximum Left Hemisphere Clinical seizure: Typical Dialeptic Seizure. Multiple seizures lasting 5-11 seconds were recorded consisting of behavioral or speech arrest which immediately resumes after EEG changes. cease. During some he has rhythmic jaw twitching, and in 2 seizures he notes that he felt this at the end and signifies t (more content not included)...[facility] 05-08-2024 History of Present illness Narrative* Ravinder De Los Santos MD - 05/08/2024 11:29 AM EDT Images from the original note were not included. [facility] Pediatric Epilepsy Date of Service: 05/08/2024 [facility]PSY CENTER - RETURN VISIT Last epilepsy visit: 11/11/2023 The patient was accompanied during the visit by the: mother REASON(S) FOR VISIT: Followup Classification Summary HISTORY OF PRESENTING ILLNESS Handedness: right-handed Age at onset of symptoms / seizures: 10 years Bishop is a 17-year-old right-handed young man, initially seen in [address] Feliciano Hines for febrile seizures between the ages of 3-5 years which manifested as bilateral convulsive activity. He had about 3 such seizures and stopped by 5 years of age. Around 10 yrs of age, he began having brief episodes of staring which were described as awareness of his his jaw moving up and down, followed by staring blankly, confusion and unresponsiveness, lasting around 30 seconds, occurring 1- 4 times/day. He was seen by Dr. Lupillo Sun in September 2015, then admitted for 24-hour VEEG monitoring which showed he was having typical absence seizures. Ethosuximide was started after which he became seizure free. Dr. Porras last saw him in August 2016. He came off Ethosuximide after a couple of years (unclear how it was decided), then remained seizure free until this year. In November this year, after a night of poor sleep, Mom reports that he came out of the shower with his towel on but still wet, agitated, shivering, staring and walking in circles but not fully responsive for a couple of minutes. There were no eye blinking/rolling, oroalimentary or manual automatisms seen. Afterwards was tired and went to sleep.This was attributed to lack of sleep and breaking up with his girlfriend. On May 29, he had a second similar episode, again after lack of sleep. Mom heard a vocalization and found him standing in his bedroom, was staring and not resonding. He said Mommy once was repetitively moving his right arm. He recovered slowly after a couple of minutes and felt better after taking a nap for few hours. A third episode occurred a couple of weeks later described as losing muscle strength in his face and jaw and feeling weird. This feeling also preceded the previous 2 episodes. INTERVAL HISTORY Bishop was last seen by me in October 2023. He has done well on Depakote, now taking 750 mg bid. He continues to be seizure free clinically without any absence seizures. No side effects are reported. 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 His recent lab was drawn 2-3 hours post dose (peak level). Goes to bed around 1 am and gets up around 12 noon. REVIEW OF SYSTEMS: The family did not report additional concerns. There were no symptoms suggestive of cardiac, gastrointestinal, or endocrinal dysfunction. No abnormal skin findings. No symptoms suggestive of respiratory, genitourinary or musculoskeletal dysfunction. SEIZURE / EPISODE TYPE(S) ASSOCIATED CONDITIONS, DEVELOPMENTAL HISTORY, AND SCHOOL Early developmental milestones appear to have been normal. Graduated [employer]; not sure about future plans ANTISEIZURE THERAPIES CURRENT ANTISEIZURE THERAPIES Depakote 750 mg bid His most recent lab was drawn 2-3 hours post dose (peak level). ANTISEIZURE MEDICATION LEVELS (LAST 3) Latest Ref Rng & Units 05/07/2024 11/14/2023 07/07/2023 Antiseizure Med Levels Valproic Acid 50.0 - 100.0 ug/mL 108.0 63.8 32.0 PRIOR/CURRENT ANTISEIZURE THERAPIES Ethosuximide Valproate Current Outpatient Medications Medication Sig Mesalamine (LIALDA) 1.2 gram EC tablet Take 4 tablets by mouth daily with breakfast. divalproex DR (DEPAKOTE) 250 mg EC tablet Take 3 tablets by mouth two times a day. glucagon (GLUCAGEN) 1 mg/mL injection Inject 1 mg intravenously one time only for 1 dose. For MRI Enterography, Inject 1 mg intravenously, as directed. Slow push at the appropriate time during MRI Scan No current facility-administered medications for this visit. ALLERGIES Allergen Reactions Sunscreen Rash, Itching Equate brand PATIENT-ENTERED DATA: No Data Recorded No data to display SOCIAL HISTORY Mom 41 yrs, has ulcerative colitis, anxiety, hpertension, eczema Dad 47 yrs Parents are Has 2 half-brothers (not related). No family history of seizures PREVIOUS EPILEPSY EVALUATIONS: VEEG monitoring November 03-2015: Interictal: 3 Hz Eric Wave Complex, Generalized, Maximum Left Hemisphere Ictal: EEG seizure, Generalized, Maximum Left Hemisphere Clinical seizure: Typical Dialeptic Seizure. Multiple seizures lasting 5-11 seconds were recorded consisting of behavioral or speech arrest which immediately resumes after EEG changes. cease. During some he has rhythmic jaw twitching, and in 2 seizures he notes that he felt this at the end and signifies this to his mother. Multi-hour EEG January 06, 2016: Intermittent Slow, Lateralized left hemisphere, maximum temporal EEG 07/05/2022: Eric and Wave Complex, Generalized, Maximum, bifrontal Three brief 2-3 second long episodes of 2.5 Hz generalized spike and wave discharges occurred during the recording. EEG 11/10/2023: Normal MRI 06/25/2008: Normal MRI Brain 11/03/2015: Normal Objective PHYSICAL EXAMINATION BP 130/70 Pulse 86 Temp 37.2 C (98.9 F) Resp 20 Ht 173.4 cm (5' 8.25) Wt 58.2 kg (128 lb4.9 oz) SpO2 98% BMI 19.37 kg/m Alert, normal speech and higher functions Cranial nerves are normal without nystagmus Motor exam reveals normal strength in all extremities DTRs are symmetric throughout Romberg is negative There is no intention tremor Gait including tandem walking is normal IMPRESSION Bishop is a 19-year-old right-handed young man with prior history of febrile seizures, followed by onset of absence seizures when he was around 10 years old. Absence seizure's were well controlled on ethosuximide which was weaned a couple of years later. He remained seizure-free until November 2021, when in the setting of sleep deprivation, he had a prolonged dialeptic seizure. Family history is negative. Neurological examination is normal. MRI of the brain in 2007 and 2015 were normal but scan quality is suboptimal and should be repeatedgiven his atypical presentation. Previous EEG showed several bursts of generalized spike-wave complexes at approximately 4 Hz. 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 It is unclear if he may have had a convulsive seizure on one occasion when he found himself on the floor, having scraped his chin. Absence seizures were not fully controlled on Ethosuximide and he also had stomach discomfort. He has tolerated Depakote well and has been seizure free. Latest VPA level was mildly elevated but was apeak level. He reports no side effects. The last EEG done on 11/10/2023 showed a single generalized spike. He is eligible to continue driving. PLAN Continue Depakote 750 mg bid Eligible to continue driving Will fax relevant records to Dr. Vasiliy Diaz in [place] for transition of care The possible risks, benefits, and alternatives to this plan were discussed. I again went over general epilepsy education points and seizure precautions with the family. I spent a total of 40 minutes on the date of the service which included preparing to see the patient, [id number] patient care, completing clinical documentation, obtaining and/or reviewing separately obtained history, performing a medically appropriate examination, counseling and educating the pat ient/family/caregiver, ordering medications, tests, or procedures, communicating with other HCPs (not separately reported), independently interpreting results (not separately reported), communicatingresults to the patient/family/caregiver, and care coordination (not separately reported). Ravinder De Los Santos MD Professor of Neurology Pediatric Epilepsy, [facility], [place] [address] Appointments: [phone] [facility] Telephone encounter Note * Telephone Encounter - Shonda Saha RN - 05/04/2024 1:55 PM EDT -Called Bishop. Advised him per Dr. De Los Santos. -He verbalized understanding and agrees with plan. Shonda Saha RN [facility]08-[facility] Miscellaneous Notes* Telephone Encounter - Shonda Saha RN - 05/04/2024 1:55 PM EDT -Called Bishop. Advised him per Dr. De Los Santos. -He verbalized understanding and agrees with plan. Shonda Saha RN * Telephone Encounter - Ravinder De Los Santos MD - 05/03/2024 5:16 PM EDT Lab ordered. Ravinder De Los Santos MD * Telephone Encounter - Shonda Saha RN - 05/03/2024 5:10 PM EDT Routed to Dr. De Los Santos. Please file pending orders and RETURN encounter, Thank you. Shonda Saha RN * Telephone Encounter - Zoila Mcnulty - 05/02/2024 12:50 PM EDT General call : Full name of person calling: Bishop Chikis Zarina Relationship to patient: self Phone # : [phone] (home) Reason for call: asking do he needs labs done before 05/08/24 appt? Patient of Dr. de los santos documented in [facility] Telephone encounter Note * Telephone Encounter - Ravinder De Los Santos MD - 05/03/2024 5:16 PM EDT Lab ordered. Ravinder De Los Santos MD [facility] Telephone encounter Note* Telephone Encounter - Shonda Saha RN - 05/03/2024 5:10 PM EDT Routed to Dr. De Los Santos. Please file pending orders and RETURN encounter, Thank you. Shonda Saha, POLLY [facility]08-07-[facility] Telephone encounter Note* Telephone Encounter - Zoila Mcnulty - 05/02/2024 12:50 PM EDT General call : Full name of person calling: Bishop Srinivasan Relationship to patient: self Phone # : [phone] (home) Reason for call: asking do he needs labs done before 05/08/24 appt? Patient of Dr. de los santos [facility] Telephone encounter Note* Telephone Encounter - Miriam DozierRn), RN - 03/16/2024 4:53 PM EDT PA completed via Covermymeds. PA available without authorization. Pharmacy processed claim. Miriam Dozier RN [facility] Miscellaneous Notes* Telephone Encounter - Miriam DozierRn) RN - 03/16/2024 4:53 PM EDT PA completed via Covermymeds. PA available without authorization. Pharmacy processed claim. Miriam Dozier RN * Telephone Encounter - Zoila Mcnulty - 03/16/2024 9:27 AM EDT Prior Authorization Needed: Received by: Fax Requested by (pharmacy name): Phone number: [phone] Name of medication: divalproex Strength and dosage: 250 Insurance company name and phone #: cmm Patient ID: [id number] PCN #: BIN#: Group #: Patient of Dr. pineda documented in [facility] encounter[facility] Telephone encounter Note * Telephone Encounter - Zoila Mcnulty - 03/16/2024 9:27 AM EDT Prior Authorization Needed: Received by: Fax Requested by (pharmacy name): Phone number: [phone] Name of medication: divalproex Strength and dosage: 250 Insurance company name and phone #: cmm Patient ID: [id number] PCN #: BIN#: Group #: Patient of Dr. pineda [facility]04-[facility] Instructions* Patient Instructions* Williams Francis MD - 01/11/2024 11:29 AM EDT - Stool study and lab work now - Continue mesalamine - Continue vitamin D and iron supplements - Continue with regular eye screens - Wear sunscreen when outdoors - If note done, make sure to complete Hep B, Hep A, and varicella boosters at primary care office - If note done, make sure to complete HPV series - Make sure to receive flu and Covid vaccines - Visit the Crohn's and Colitis [employer] web site ([email or web address] documented in this encounterAk[facility]04[facility] History of Present illness Narrative* Williams Francis MD - 01/11/2024 11:00 AM EDT Images from the original note were not included. PEDIATRIC GASTROENTEROLOGY, HEPATOLOGY, & NUTRITION [address] [place] [address] Williams Francis MD This is a virtual visit using [employer] video visit. It required patient-provider interaction for themedical decision making as documented below. I have communicated my name and active licensure. The patient's identity and physical location were verified at the time of this visit. Either the patientor their legal medical collections representative has been informed of the risks and benefits of -- and alternatives to-- treatment through a remote evaluation and consents to proceed with the evaluation remotely. SOURCE OF INFORMATION Primary Care Provider: Luis L Norwood, DO History obtained from: Self HISTORY OF PRESENT ILLNESS: Bishop Srinivasan is a 18 year old man who presents as a follow-up. He has last seen by me 06/01/23. At his last visit, recommended continuing mesalamine. Calprotectin done following his last visit remained elevated and he did not do lab work previously recommended. Since his last visit, he has been struggling with the stress of his dad having cancer and likely topass away in the near future. He notes having people to talk to. From an IBD standpoint, he notes doing well. He remains on mesalamine, forgetting to take every nowand then. BMs are once a day every 1-2 days, mostly formed with occasionally looser stools. Every now and then he will see blood when wiping, denying any blood in the stool. He is able to sleep through the night and denies limitation to activity. As you know, sine right before 2021 he started to have loose stools 1- 2 times a day, pieces mixed with water, and would see blood on the toilet paper every time he wiped. He was started on Pepcid without improvement. By around New Years he continued to have loose stools, pieces mixed withblood, after which there would be a few drops of bright red blood in the toilet bowel. BMs currently are 2-3 times a day with blood in the toilet bowl. He has also started to have intermittent belly pain all over, worse for about 30 seconds after having a BM. He has difficulty falling asleep due topain, but has not woken up at night needing to go to the bathroom. He has started to take Imodium to prevent symptoms while in school. Prior to 2021 , stools were 3-4 times a week, like thick logs. He would need to strain a little, but otherwise not much difficulty. Denies seeing blood. Current Diagnosis: Ulcerative Colitis, diagnosed: 11/04/22 Macroscopic Disease Location: segmental colitis from the rectum to the hepatic flexure, cecal patcharound the appendix Disease Phenotype: Inflammatory Perianal Disease: No History of Surgery: No Last IBD Related Hospital Admission: none Endoscopies: 11/04/22 EGD: Normal Colonoscopy: Segmental colitis from the rectum to the hepatic flexure which consisted of erythema, friability, complete loss of vascularity, and superficial ulceration. The rectosigmoid area was a Tony 3. The left colon, transverse colon and hepatic flexure were a Tony 2. There is an obvious transition to normal mucosa after the hepatic flexure. There was a cecal patch around the appendix that was erythematous, friable with shallow ulceration. The ileocecal valve and terminal ileum were visually normal. Pathology: A. Duodenum, biopsy: - Small bowel mucosa with no diagnostic abnormality. B. Stomach, biopsy: - Mild chronic gastritis with focal activity (see comment). C. Distal esophagus, biopsy: - Squamous mucosa with no diagnostic abnormality. D. Terminal ileum, biopsy: - Small bowel mucosa with no diagnostic abnormality. E. Cecum, biopsy: - Colonic mucosa with no diagnostic abnormality. F. Right colon, biopsy: - Colonic mucosa with no diagnostic abnormality. G. Transverse colon, biopsy: - Chronic moderately active colitis, negative for granulomas or dysplasia. H. Left colon, biopsy: - Chronic moderately active colitis, negative for granulomas or dysplasia. I. Rectum, biopsy: - Chronic moderately active proctitis, negative for granulomas or dysplasia. Imaging: Normal MRE (12/31/22) Extra-intestinal manifestations: None Labs: Hemoglobin Date Value Ref Range Status 11/14/2023 14.6 13.0 - 17.0 g/dL Final 07/07/2023 15.2 13.0 - 17.0 g/dL Final 03/31/2023 14.7 13.0 - 17.0 g/dL Final Hematocrit Date Value Ref Range Status 11/14/2023 45.0 39.0 - 51.0 % Final 07/07/2023 46.1 39.0 - 51.0 % Final 03/31/2023 44.8 39.0 - 51.0 % Final WBC Date Value Ref Range Status 11/14/2023 7.41 3.70 - 11.00 k/uL Final 07/07/2023 5.80 3.70 - 11.00 k/uL Final 03/31/2023 6.67 3.70 - 11.00 k/uL Final Platelet Count Date Value Ref Range Status 11/14/2023 204 150 - 400 k/uL Final 07/07/2023 182 150 - 400 k/uL Final 03/31/2023 230 150 - 400 k/uL Final CRP Date Value Ref Range Status 02/24/2023 <0.3 <0.9 mg/dL Final 10/26/2022 0.4 <0.9 mg/dL Final Sed Rate, Westergren Date Value Ref Range Status 02/24/2023 5 0 - 15 mm/hr Final 10/26/2022 27 (H) 0 - 15 mm/hr Final Albumin Date Value Ref Range Status 11/14/2023 4.6 3.9 - 4.9 g/dL Final 07/07/2023 4.7 3.9 - 4.9 g/dL Final 03/31/2023 4.6 3.9 - 4.9 g/dL Final ALT Date Value Ref Range Status 11/14/2023 16 10 - 54 U/L Final 07/07/2023 16 10 - 54 U/L Final 03/31/2023 9 (L) 10 - 54 U/L Final Calprotectin, Fecal Date Value Ref Range Status 10/28/2022 2,908.9 (H) 0 - 50 mg/kg Final Comment: INTERPRETIVE INFORMATION: Calprotectin, Fecal <50.0 mg/kg : Normal 50.0-120.0 mg/kg: Borderline. Test should be re-evaluated in 4-6 wks. >120.0 mg/kg: Abnormal Current IBD Medications: mesalamine Previous medications: Prednisone: last course Oct-January 2023 History of C.diff: none Eye exam: Date of last visit: April 2022 Iron Stores: Ferritin (goal >100 ng/mL) Transferrin (goal saturation >20%) Iron Date Value Ref Range Status 02/24/2023 115 41 - 186 ug/dL Final TIBC Date Value Ref Range Status 02/24/2023 330 232 - 386 ug/dL Final Transferrin Saturation Date Value Ref Range Status 02/24/2023 34.8 15.0 - 57.0 % Final Ferritin Date Value Ref Range Status 02/24/2023 30.6 30.3 - 565.7 ng/mL Final Therapy: iron supplement Bone Health: Vitamin D 25 Hydroxy (ng/mL) Date Value 02/24/2023 47.5 05/03/2016 41.9 Treatment: High dose vit D Bone-Mineral DEXA: Date: none Result: none Growth Growth Failure: no (Defined as Height percentile changed lower by two isobars or Height percentile <3rd percentile for age or Height velocity <3rd percentile for age) Last Ht 04/07/23 : 172.7 cm (5' 8) 12/14/22 : 173 cm (5' 8.11) 10/26/22 : 173 cm (5' 8.11) 07/05/22 : 173 cm (5' 8.11) 03/30/22 : 174.5 cm (5' 8.7) Nutritional Failure: No (Defined as: Weight percentile changed lower by two isobars or Weight loss ? 10% or Body mass index<3rd percentile for age) Weight: Last Wt 04/07/23 : 60.6 kg (133 lb 8 oz) 02/23/23 : 63.5 kg (140 lb) 12/14/22 : 60.3 kg (132 lb 14.4 oz) 11/16/22 : 60.3 kg (133 lb) 11/04/22 : 57.5 kg (126 lb 12.2 oz) No height and weight on file for this encounter. Immunizations: Hepatitis B: sAb: Negative sAg: Negative Varicella IgG: Negative Hepatitis B: Date 11/04/22 Surface Antibody negative, Surface Antigen negative Re- vaccination: Recommended Hepatitis A: 11/04/22, negative Re-vaccination: Recommended Varicella Ig11/04/22, negative (no live vaccines on immunosuppression) HPV (9-26 years old): unknown, Recommended (age appropriate) PPSV23 (one-time re-vaccination after 5 years): unknown, Recommended when available Last Flu Immunization: unknown COVID19 Vaccine: unknown COVID19 Infection: unknown Yearly labs: GGT Date Value Ref Range Status 02/24/2023 16 10 - 70 U/L Final Protein, Urine Date Value Ref Range Status 02/22/2009 neg Neg mg/dL Cancer Prevention: Dysplasia Screening: Due 2030 Diagnosed: 2022 UC or >1/3 of colon in CD 8 years after diagnosis PMH: epilepsy, IBD PSH: none FH: Mom with UC, PGM with IBD (unsure which), maternal great aunt with UC, otherwise negative for celiac disease, liver disease, autoimmune disease SH: parents , lives with mom and step-dad, will occasionally see dad, has 2 paternal half brother; completed 12th grade, unsure what will do next year ALLERGIES Allergen Reactions Sunscreen Rash, Itching Equate brand ACTIVE PROBLEM LIST Other Ulcerative Colitis With Rectal Bleeding ([facility]) - 11/16/2022 Vitamin D Deficiency - 11/16/2022 Childhood Absence Epilepsy, Refractory ([facility]) - 11/06/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, Intractable, With Status Epilepticus ([facility]) - 11/03/2015 Well Child Check - 10/25/2014 Partial Epilepsy With Impairment of Consciousness ([facility]) - 06/11/2008 PAST MEDICAL HISTORY Diagnosis Date Early onset of delivery, delivered, with or without mention of antepartum condition 29 weeks gestation, Hospitalized 9 weeks in NICU [facility] Esophageal reflux Febrile seizure (HCC) Generalized seizure disorder (HCC) Hydrocele Hyposmolality and/or hyponatremia Respiratory distress syndrome in Seizures ([facility]) febrile--see Neuro workup Unspecified and jaundice PAST SURGICAL HISTORY Procedure Laterality Date CIRCUMCISION PHOTOTHERAPY Social History Tobacco Use Smoking status: Never Passive exposure: Yes Smokeless tobacco: Never Tobacco comments: mother smokes outside Vaping Use Vaping Use: Never used Substance Use Topics Alcohol use: Never Drug use: Never FAMILY HISTORY Problem Relation Age of Onset None Father None Paternal Grandfather other (Ulcerative Colitiis) Paternal Grandmother other (GERD) Paternal Grandmother other (Ulcerative Colitis`) Mother other (ulcerative colitis) Maternal Grandmother great GM None Maternal Grandfather Current Outpatient Medications Medication Sig Dispense Refill Mesalamine (LIALDA) 1.2 gram EC tablet Take 4 tablets by mouth daily with breakfast. [address] (DEPAKOTE) 250 mg EC tablet Take 3 tablets by mouth two times a day. 540 tablet 1 glucagon (GLUCAGEN) 1 mg/mL injection Inject 1 mg intravenously one time only for 1 dose. For MRI Enterography, Inject 1 mg intravenously, as directed. Slow push at the appropriate time during MRI Scan 1 Each 0 No current facility-administered medications for this visit. LABS: Results for orders placed or performed in visit on 11/14/23 VALPROIC A/DEPAKENE Result Value Ref Range Valproic Acid 63.8 50.0 - 100.0 ug/mL COMP METABOLIC PANEL Result Value Ref Range Protein, Total 7.3 6.3 - 8.0 g/dL Albumin 4.6 3.9 - 4.9 g/dL Calcium, Total 9.7 8.5 - 10.2 mg/dL Bilirubin, Total 0.7 0.2 - 1.3 mg/dL Alkaline Phosphatase 34 (L) 55 - 149 U/L AST 21 14 - 40 U/L ALT 16 10 - 54 U/L Glucose 55 (L) 74 - 99 mg/dL BUN 15 9 - 24 mg/dL Creatinine 1.00 0.73 - 1.22 mg/dL Sodium 142 136 - 144 mmol/L Potassium 4.7 3.7 - 5.1 mmol/L Chloride 104 97 - 105 mmol/L CO2 24 22 - 30 mmol/L Anion Gap 14 9 - 18 mmol/L Estimated Glomerular Filtration Rate 112 >=60 mL/min/1.73m CBC + DIFF Result Value Ref Range WBC 7.41 3.70 - 11.00 k/uL RBC 4.82 4.20 - 6.00 m/uL Hemoglobin 14.6 13.0 - 17.0 g/dL Hematocrit 45.0 39.0 - 51.0 % MCV 93.4 80.0 - 100.0 fL MCH 30.3 26.0 - 34.0 pg MCHC 32.4 30.5 - 36.0 g/dL RDW-CV 12.7 11.5 - 15.0 % Platelet Count 204 150 - 400 k/uL MPV 11.4 9.0 - 12.7 fL Neutrophils % 67.8 % Abs Neut 5.02 1.45 - 7.50 k/uL Lymphocytes % 19.8 % Abs Lymph 1.47 1.00 - 4.00 k/uL Monocytes % 9.6 % Abs Chaves 0.71 <0.87 k/uL Eosinophils % 2.0 % Abs Eosin 0.15 <0.46 k/uL Basophils % 0.5 % Abs Baso 0.04 <0.11 k/uL Immature Granulocytes % 0.3 % Abs Immature Gran <0.03 <0.10 k/uL NRBC 0.0 /100 WBC Absolute nRBC <0.01 <0.01 k/uL Diff Type Auto REVIEW OF SYSTEMS: Constitutional: Negative HENT: Negative Eyes: Negative Respiratory: Negative Cardiovascular: Negative Gastrointestinal: As per HPI Endocrine: Negative Genitourinary: Negative Musculoskeletal: Negative Skin: Negative Allergic/Immunologic: Negative Neurological: Seizures (well controlled, last in November 2021) Hematological: Negative Psychiatric/Behavioral: Negative PHYSICAL EXAMINATION There were no vitals taken for this visit. There is no height or weight on file to calculate BMI. There is no height or weight on file to calculate BSA. Last Wt 04/07/23 : 60.6 kg (133 lb 8 oz) 02/23/23 : 63.5 kg (140 lb) 12/14/22 : 60.3 kg (132 lb 14.4 oz) Physical Exam Limited due to virtual visit Constitutional: He appears well-developed and well-nourished. He is active. IMPRESSION: Bishop is a 18 year old male with ulcerative colitis with segmental colitis from the rectum to the hepatic flexure and cecal patch around the appendix I had an extensive discussion with Bishop about IBD and UC. He will intermittently see blood when wiping which may be disease vs. Fissure, denying any blood on the stool/in the bowl. He remains on mesalamine monotherapy without recurrence of symptoms (PUCAI 0). MRE done in December 2022 is reassuring, but calprotectin from June 2023 is elevated. He will occasionally miss doses and I reinforced the importance of medication compliance. Will check labs and stool calprotectin. We discussed potential for switching to other medications such as an infusion or injection. He is Hep A, Hep B, and varicella non-immune; he received boosted for Hep A and B, will recheck levels. There is significant stress at home with his dad having cancer at the end stage of life. I encouraged him to attend to his own mental health as the family goes through this difficult time. We discussed meeting our IBD teams who can also work with him on transitioning care to an adult practice when ready. He appears to be interested in this. Will work with the team to see if they can doa virtual visit in the next 1-2 months. PLAN: Patient Instructions - Stool study and lab work now - Continue mesalamine - Continue vitamin D and iron supplements - Continue with regular eye screens - Wear sunscreen when outdoors - If note done, make sure to complete Hep B, Hep A, and varicella boosters at primary care office - If note done, make sure to complete HPV series - Make sure to receive flu and Covid vaccines - Visit the Crohn's and Colitis Foundation web site ([email or web address]/) Orders Placed This Encounter CBC with Differential Standing Status: Future Standing Expiration Date: 04/11/2024 Hepatic Function Panel Standing Status: Future Standing Expiration Date: 04/11/2024 Basic Metabolic Panel Standing Status: Future Standing Expiration Date: 04/11/2024 GGT Standing Status: Future Standing Expiration Date: 04/11/2024 ESR Standing Status: Future Standing Expiration Date: 04/11/2024 CRP Standing Status: Future Standing Expiration Date: 04/11/2024 Ferritin, Blood Standing Status: Future Standing Expiration Date: 01/10/2025 Scheduling Instructions: In preparation for this test, do not take multivitamins or dietary supplements containing biotin (vitamin B7) for at least 12 hours. Biotin is commonly found in hair, skin, and nail supplements and multivitamins. Tell your doctor if you take supplements containing biotin as part of your medication history. Iron and TIBC, Blood Standing Status: Future Standing Expiration Date: 01/10/2025 Vitamin D-25 Standing Status: Future Standing Expiration Date: 04/11/2024 Calprotectin Standing Status: Future Standing Expiration Date: 04/11/2024 Varicella Zoster, IgG Standing Status: Future Standing Expiration Date: 04/11/2024 Quantiferon Gold Standing Status: Future Standing Expiration Date: 04/11/2024 Hepatitis B Surface Antibody Qual Standing Status: Future Standing Expiration Date: 04/11/2024 HEPATITIS A ANTIBODY, IGG Standing Status: Future Standing Expiration Date: 04/11/2024 Hepatitis B Surface Antigen Standing Status: Future Standing Expiration Date: 04/11/2024 Scheduling Instructions: In preparation for this test, do not take multivitamins or dietary supplements containing biotin (vitamin B7) for at least 12 hours. Biotin is commonly found in hair, skin, and nail supplements and multivitamins. Tell your doctor if you take supplements containing biotin as part of your medication history. Mesalamine (LIALDA) 1.2 gram EC tablet Sig: Take 4 tablets by mouth daily with breakfast. Dispense: 120 tablet Refill: 2 Plan of care reviewed with patient / parent / undercollar baster, who verbalized understanding? Yes I spent a total of 45 minutes on the date of the service which included preparing to see the patient, [id number] patient care, completing clinical documentation, obtaining and/or reviewing separately obtained history, performing a medically appropriate examination, counseling and educating the pat ient/family/caregiver, ordering medications, tests, or procedures, communicating with other HCPs (not separately reported), independently interpreting results (not separately reported), communicatingresults to the patient/family/caregiver, and care coordination (not separately reported). It was a pleasure to see your patient today. Thank you for allowing me to participate in the care of your patient. Please do not hesitate to contact me with any questions; I will be happy to discuss with you the plan of care. Sincerely, Williams Francis MD Pediatric Gastroenterology [facility] documented in this encounter[facility] Miscellaneous Notes* Telephone Encounter - Shonda Saha RN - 11/18/2023 1:25 PM EST Plan per Dr. De Los Santos in staff message 11/11/2023: VPA level has improved but will need to maintain it. Labwork every 6 months -Called Mrs. Srinivasan. Advised her per Dr. De Los Santos. -She verbalized understanding and agrees with plan. Shonda Saha RN documented in this encounterAkron [facility]02-16-2024 Instructions* Patient Instructions* Ravidner De Los Santos MD - 11/11/2023 11:50 AM EST Check labwork (before morning dose or late afternoon) Continue Depakote [address] pending lab results Return for office visit in 6 months documented in this encounterAkron [facility]24 History of Present illness Narrative* Ravinder De Los Santos MD - 11/11/2023 11:35 AM EST Images from the original note were not included. [facility] Pediatric Epilepsy Date of Service: 11/11/2023 EPILEPSY CENTER - RETURN VISIT Last epilepsy visit: 04/07/2023 The patient was accompanied during the visit by the: mother We had a visit using: z[employer] I received consent from the patient/parent/guardian to perform the visit using this platform. REASON(S) FOR VISIT: Followup after EEG Classification Summary HISTORY OF PRESENTING ILLNESS Handedness: right-handed Age at onset of symptoms / seizures: 10 years Bishop is a 17-year-old right-handed young man, initially seen in [address] Feliciano Hines for febrile seizures between the ages of 3-5 years which manifested as bilateral convulsive activity. He had about 3 such seizures and stopped by 5 years of age. Around 10 yrs of age, he began having brief episodes of staring which were described as awareness of his his jaw moving up and down, followed by staring blankly, confusion and unresponsiveness, lasting around 30 seconds, occurring 1- 4 times/day. He was seen by Dr. Lupillo Sun in September 2015, then admitted for 24-hour VEEG monitoring which showed he was having typical absence seizures. Ethosuximide was started after which he became seizure free. Dr. Porras last saw him in August 2016. He came off Ethosuximide after a couple of years (unclear how it was decided), then remained seizure free until this year. In November this year, after a night of poor sleep, Mom reports that he came out of the shower with his towel on but still wet, agitated, shivering, staring and walking in circles but not fully responsive for a couple of minutes. There were no eye blinking/rolling, oroalimentary or manual automatisms seen. Afterwards was tired and went to sleep.This was attributed to lack of sleep and breaking up with his girlfriend. On May 29, he had a second similar episode, again after lack of sleep. Mom heard a vocalization and found him standing in his bedroom, was staring and not resonding. He said Mommy once was repetitively moving his right arm. He recovered slowly after a couple of minutes and felt better after taking a nap for few hours. A third episode occurred a couple of weeks later described as losing muscle strength in his face and jaw and feeling weird. This feeling also preceded the previous 2 episodes. INTERVAL HISTORY Bishop was last seen by me in March 2023. We then increased Depakote from 500 mg bid to 500 mg - 750 mg but level was still low in June, so it was increased again to 750 mg bid. He continues to be seizure free clinically without any absence seizures. No side effects are reported. 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 REVIEW OF SYSTEMS: The family did not report additional concerns. There were no symptoms suggestive of cardiac, gastrointestinal, or endocrinal dysfunction. No abnormal skin findings. No symptoms suggestive of respiratory, genitourinary or musculoskeletal dysfunction. SEIZURE / EPISODE TYPE(S) ASSOCIATED CONDITIONS, DEVELOPMENTAL HISTORY, AND SCHOOL Early developmental milestones appear to have been normal. [employer]uated [employer]; not sure about future plans ANTISEIZURE THERAPIES CURRENT ANTISEIZURE THERAPIES Depakote 500 mg bid l ANTISEIZURE MEDICATION LEVELS (LAST 3) Antiseizure Med Levels Latest Ref Rng & Units 07/07/2023 03/31/2023 03/07/2023 ETHOSUXIMIDE 40 - 100 ug/mL - <10(L) 91 VALPROIC ACID 50.0 - 100.0 ug/mL 32.0(L) 66.7 <2.8(L) PRIOR/CURRENT ANTISEIZURE THERAPIES Ethosuximide Valproate Current Outpatient Medications Medication Sig divalproex DR (DEPAKOTE) 250 mg EC tablet Take 3 tablets by mouth two times a day. Mesalamine (LIALDA) 1.2 gram EC tablet Take 4 tablets by mouth daily with breakfast. glucagon (GLUCAGEN) 1 mg/mL injection Inject 1 mg intravenously one time only for 1 dose. For MRI Enterography, Inject 1 mg intravenously, as directed. Slow push at the appropriate time during MRI Scan cholecalciferol, Vitamin D3, (VITAMIN D3) 1,250 mcg (50,000 unit) cap capsule Take 1 capsule by mouth one time a week for 8 doses. No current facility-administered medications for this visit. ALLERGIES Allergen Reactions Sunscreen Rash, Itching Equate brand PATIENT-ENTERED DATA: No Data Recorded No flowsheet data found. SOCIAL HISTORY Mom 41 yrs, has ulcerative colitis, anxiety, hpertension, eczema Dad 47 yrs Parents are Has 2 half-brothers (not related). No family history of seizures PREVIOUS EPILEPSY EVALUATIONS: VEEG monitoring November 03-2015: Interictal: 3 Hz Eric Wave Complex, Generalized, Maximum Left Hemisphere Ictal: EEG seizure, Generalized, Maximum Left Hemisphere Clinical seizure: Typical Dialeptic Seizure. Multiple seizures lasting 5-11 seconds were recorded consisting of behavioral or speech arrest which immediately resumes after EEG changes. cease. During some he has rhythmic jaw twitching, and in 2 seizures he notes that he felt this at the end and signifies this to his mother. Multi-hour EEG January 06, 2016: Intermittent Slow, Lateralized left hemisphere, maximum temporal EEG 07/05/2022: Eric and Wave Complex, Generalized, Maximum, bifrontal Three brief 2-3 second long episodes of 2.5 Hz generalized spike and wave discharges occurred during the recording. MRI 06/25/2008: Normal MRI Brain 11/03/2015: Normal Objective PHYSICAL EXAMINATION Formal examination deferred due to virtual visit. Patient is alert, normal speech, no facial asymmetry or nystagmus noted. IRVING Alas is a 18-year-old right-handed young man with prior history of febrile seizures, followed by onset of absence seizures when he was around 10 years old. Absence seizure's were well controlled on ethosuximide which was weaned a couple of years later. He remained seizure-free until November 2021, when in the setting of sleep deprivation, he had a prolonged dialeptic seizure. Family history is negative. Neurological examination is normal. MRI of the brain in 2007 and 2015 was normal but scan quality is suboptimal and needs to be repeated given his atypical presentation. His EEG showed several bursts of generalized spike-wave complexesat approximately 4 Hz. 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 It is unclear if he may have had a convulsive seizure recently when he found himself on the floor, having scraped his chin. Absence seizures were not fully controlled on Ethosuximide and he also had stomach discomfort.- these have improved after coming off Ethosuximide and transitioning to Depakote. No absence seizures have been noticed after this transitioning and he is tolerating the medication well. His EEG done yesterday showed a single generalized spike. We may clear him for driving pending lab results. PLAN Check labwork (before morning dose or late afternoon) Continue Depakote [address] pending lab results Return for office visit in 6 months The possible risks, benefits, and alternatives to this plan were discussed. I again went over general epilepsy education points and seizure precautions with the family. I spent a total of 20 minutes on the date of the service which included preparing to see the patient, [id number] patient care, completing clinical documentation, obtaining and/or reviewing separately obtained history, counseling and educating the patient/family/caregiver, ordering medications, guillermo ts, or procedures, communicating with other HCPs (not separately reported), independently interpreting results (not separately reported), communicating results to the patient/family/caregiver, and care coordination (not separately reported) . Ravinder De Los Santos MD Professor of Neurology Pediatric Epilepsy, [facility], [place] [address] Appointments: [phone] documented in this encounterAkron [facility]02-06-2024 History of Present illness Narrative* Ravinder De Los Santos MD - 11/01/2023 2:03 PM EST EEG order entered. Ravinder De Los Santos MD documented in this encounterAkron [facility]12-14-2023 History of Present illness Narrative* Jennifer Craig LPN - 09/08/2023 3:04 PM EST Patient presents for Hepatitis B vaccine. Denies any problems at this time. Tolerated injection well. Jennifer Craig LPN documented in this encounterAkron [facility]10-16-2023 Miscellaneous Notes* Telephone Encounter - Shonda Saha RN - 07/11/2023 1:32 PM EDT -Called Bishop. Advised him per Dr. De Los Santos. -He verbalized understanding and agrees with plan. Routed to Dr. De Los Santos. Please file pending orders and CLOSE encounter, Thank you Shonda Saha RN * Telephone Encounter - Shonda Saha RN - 07/08/2023 10:11 AM EDT Plan per Dr. De Los Santos in results note 07/08/2023: VPA level is low. Is he taking it regularly? Recommend rechecking again - if still low would need to increase it because last EEG was still showing spike-wave discharges. -Called Bishop. Did not receive an answer. Will await call-back. Shonda Saha RN documented in this encounterAkron [facility]09-06-2023 Instructions* Patient Instructions* Williams Francis MD - 06/01/2023 10:48 AM EDT - Stool study now - Lab work 1 week prior to next visit - Continue mesalamine - Continue vitamin D and iron supplements - Continue with regular eye screens - Wear sunscreen when outdoors - Can get Hep B, Hep A, and varicella boosters at primary care office - Wait 2-4 weeks off steroids before vaccination - Make sure to complete HPV series - Make sure to receive flu and Covid vaccines - Visit the Crohn's and Colitis Foundation web site ([email or web address]/) documented in this encounterAkron [facility]09-06-2023 History of Present illness Narrative* Williams Francis MD - 06/01/2023 10:39 AM EDT Images from the original note were not included. PEDIATRIC GASTROENTEROLOGY, HEPATOLOGY, & NUTRITION [address] [facility] [place] [address] Williams Francis MD This is a virtual visit using [employer] video visit. It required patient-provider interaction for themedical decision making as documented below. I have communicated my name and active licensure. The patient's identity and physical location were verified at the time of this visit. Either the patientor their legal medical collections representative has been informed of the risks and benefits of -- and alternatives to-- treatment through a remote evaluation and consents to proceed with the evaluation remotely. SOURCE OF INFORMATION Primary Care Provider: Luis Norwood DO History obtained from: Self HISTORY OF PRESENT ILLNESS: Bishop Srinivasan is a 18 year old man who presents as a follow-up. He has last seen by me 02/23/23. Athis last visit, recommended continuing mesalamine. Since his last visit, he continues to do well overall. He ran out of mesalamine and didn't take for1-2 months until he refilled the prescription, denying any symptoms during that time period. BMs are every 1-2 days, formed, non-bloody. Denies night time symptoms. He has good energy levels. Current Diagnosis: Ulcerative Colitis, diagnosed: 11/04/22 Macroscopic Disease Location: segmental colitis from the rectum to the hepatic flexure, cecal patcharound the appendix Disease Phenotype: Inflammatory Perianal Disease: No History of Surgery: No Last IBD Related Hospital Admission: none Endoscopies: 11/04/22 EGD: Normal Colonoscopy: Segmental colitis from the rectum to the hepatic flexure which consisted of erythema, friability, complete loss of vascularity, and superficial ulceration. The rectosigmoid area was a Tony 3. The left colon, transverse colon and hepatic flexure were a Tony 2. There is an obvious transition to normal mucosa after the hepatic flexure. There was a cecal patch around the appendix that was erythematous, friable with shallow ulceration. The ileocecal valve and terminal ileum were visually normal. Pathology: A. Duodenum, biopsy: - Small bowel mucosa with no diagnostic abnormality. B. Stomach, biopsy: - Mild chronic gastritis with focal activity (see comment). C. Distal esophagus, biopsy: - Squamous mucosa with no diagnostic abnormality. D. Terminal ileum, biopsy: - Small bowel mucosa with no diagnostic abnormality. E. Cecum, biopsy: - Colonic mucosa with no diagnostic abnormality. F. Right colon, biopsy: - Colonic mucosa with no diagnostic abnormality. G. Transverse colon, biopsy: - Chronic moderately active colitis, negative for granulomas or dysplasia. H. Left colon, biopsy: - Chronic moderately active colitis, negative for granulomas or dysplasia. I. Rectum, biopsy: - Chronic moderately active proctitis, negative for granulomas or dysplasia. Imaging: Normal MRE (12/31/22) Extra-intestinal manifestations: None Labs: Hemoglobin Date Value Ref Range Status 03/31/2023 14.7 13.0 - 17.0 g/dL Final 02/24/2023 15.4 13.0 - 17.0 g/dL Final 10/26/2022 13.1 13.0 - 17.0 g/dL Final Hematocrit Date Value Ref Range Status 03/31/2023 44.8 39.0 - 51.0 % Final 02/24/2023 46.3 39.0 - 51.0 % Final 10/26/2022 40.8 39.0 - 51.0 % Final WBC Date Value Ref Range Status 03/31/2023 6.67 3.70 - 11.00 k/uL Final 02/24/2023 6.39 3.70 - 11.00 k/uL Final 10/26/2022 11.44 (H) 3.70 - 11.00 k/uL Final Platelet Count Date Value Ref Range Status 03/31/2023 230 150 - 400 k/uL Final 02/24/2023 235 150 - 400 k/uL Final 10/26/2022 334 150 - 400 k/uL Final CRP Date Value Ref Range Status 02/24/2023 <0.3 <0.9 mg/dL Final 10/26/2022 0.4 <0.9 mg/dL Final Sed Rate, Westergren Date Value Ref Range Status 02/24/2023 5 0 - 15 mm/hr Final 10/26/2022 27 (H) 0 - 15 mm/hr Final Albumin Date Value Ref Range Status 03/31/2023 4.6 3.9 - 4.9 g/dL Final 02/24/2023 4.8 3.9 - 4.9 g/dL Final 10/26/2022 4.5 3.2 - 4.5 g/dL Final ALT Date Value Ref Range Status 03/31/2023 9 (L) 10 - 54 U/L Final 02/24/2023 10 10 - 54 U/L Final 10/26/2022 10 10 - 54 U/L Final Comment: Reference ranges for this patient's age group have not been established. These reference ranges reflect verified or established ranges for the adult population. Interpret these ranges with caution using the clinical context and additional reference resources. Calprotectin, Fecal Date Value Ref Range Status 10/28/2022 2,908.9 (H) 0 - 50 mg/kg Final Comment: INTERPRETIVE INFORMATION: Calprotectin, Fecal <50.0 mg/kg : Normal 50.0-120.0 mg/kg: Borderline. Test should be re-evaluated in 4-6 wks. >120.0 mg/kg: Abnormal Current IBD Medications: mesalamine Previous medications: Prednisone: last course Oct-January 2023 History of C.diff: none Eye exam: Date of last visit: April 2022 Iron Stores: Ferritin (goal >100 ng/mL) Transferrin (goal saturation >20%) Iron Date Value Ref Range Status 02/24/2023 115 41 - 186 ug/dL Final TIBC Date Value Ref Range Status 02/24/2023 330 232 - 386 ug/dL Final Transferrin Saturation Date Value Ref Range Status 02/24/2023 34.8 15.0 - 57.0 % Final Ferritin Date Value Ref Range Status 02/24/2023 30.6 30.3 - 565.7 ng/mL Final Therapy: iron supplement Bone Health: Vitamin D 25 Hydroxy (ng/mL) Date Value 02/24/2023 47.5 05/03/2016 41.9 Treatment: High dose vit D Bone-Mineral DEXA: Date: none Result: none Growth Growth Failure: no (Defined as Height percentile changed lower by two isobars or Height percentile <3rd percentile for age or Height velocity <3rd percentile for age) Last Ht 04/07/23 : 172.7 cm (5' 8) 12/14/22 : 173 cm (5' 8.11) 10/26/22 : 173 cm (5' 8.11) 07/05/22 : 173 cm (5' 8.11) 03/30/22 : 174.5 cm (5' 8.7) Nutritional Failure: No (Defined as: Weight percentile changed lower by two isobars or Weight loss ? 10% or Body mass index<3rd percentile for age) Weight: Last Wt 04/07/23 : 60.6 kg (133 lb 8 oz) 02/23/23 : 63.5 kg (140 lb) 12/14/22 : 60.3 kg (132 lb 14.4 oz) 11/16/22 : 60.3 kg (133 lb) 11/04/22 : 57.5 kg (126 lb 12.2 oz) No height and weight on file for this encounter. Immunizations: Hepatitis B: sAb: Negative sAg: Negative Varicella IgG: Negative Hepatitis B: Date 11/04/22 Surface Antibody negative, Surface Antigen negative Re- vaccination: Recommended Hepatitis A: 11/04/22, negative Re-vaccination: Recommended Varicella Ig11/04/22, negative (no live vaccines on immunosuppression) HPV (9-26 years old): unknown, Recommended (age appropriate) PPSV23 (one-time re-vaccination after 5 years): unknown, Recommended when available Last Flu Immunization: unknown COVID19 Vaccine: unknown COVID19 Infection: unknown Yearly labs: GGT Date Value Ref Range Status 02/24/2023 16 10 - 70 U/L Final Protein, Urine Date Value Ref Range Status 02/22/2009 neg Neg mg/dL Cancer Prevention: Dysplasia Screening: Due 2030 Diagnosed: 2022 UC or >1/3 of colon in CD 8 years after diagnosis As you know, sine right before 2021 he started to have loose stools 1- 2 times a day, pieces mixed with water, and would see blood on the toilet paper every time he wiped. He was started on Pepcid without improvement. By around New Years he continued to have loose stools, pieces mixed withblood, after which there would be a few drops of bright red blood in the toilet bowel. BMs currently are 2-3 times a day with blood in the toilet bowl. He has also started to have intermittent belly pain all over, worse for about 30 seconds after having a BM. He has difficulty falling asleep due topain, but has not woken up at night needing to go to the bathroom. He has started to take Imodium to prevent symptoms while in school. Prior to 2021 , stools were 3-4 times a week, like thick logs. He would need to strain a little, but otherwise not much difficulty. Denies seeing blood. He otherwise has a good appetite and is eating well. Denies difficulty swallowing or like like foodgets stuck. Denies nausea and vomiting. Denies weight loss, fever, headache, vision changes, eye pain, mouth sores, joint pain, rashes. He has had intermittent muscles spasms. 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, Intractable, With Status Epilepticus (Hcc) - 11/03/2015 Well Child Check - 10/25/2014 Partial Epilepsy With Impairment of Consciousness (Hcc) - 06/11/2008 PAST MEDICAL HISTORY Diagnosis Date Early onset of delivery, delivered, with or without mention of antepartum condition 29 weeks gestation, Hospitalized 9 weeks in NICU [facility] Esophageal reflux Febrile seizure (HCC) Generalized seizure disorder (HCC) Hydrocele Hyposmolality and/or hyponatremia Respiratory distress syndrome in Seizures (HCC) febrile--see Neuro workup Unspecified and jaundice PAST SURGICAL HISTORY Procedure Laterality Date CIRCUMCISION PHOTOTHERAPY Social History Tobacco Use Smoking status: Never Passive exposure: Yes Smokeless tobacco: Never Tobacco comments: mother smokes outside Vaping Use Vaping Use: Never used Substance Use Topics Alcohol use: Never Drug use: Never FAMILY HISTORY Problem Relation Age of Onset None Father None Paternal Grandfather other (Ulcerative Colitiis) Paternal Grandmother other (GERD) Paternal Grandmother other (Ulcerative Colitis`) Mother other (ulcerative colitis) Maternal Grandmother great GM None Maternal Grandfather Current Outpatient Medications Medication Sig Dispense Refill divalproex DR (DEPAKOTE) 250 mg EC tablet Take 3 tablets by mouth twice daily. 540 tablet 1 Mesalamine (LIALDA) 1.2 gram EC tablet Take 4 tablets by mouth daily with breakfast. 120 tablet 5 glucagon (GLUCAGEN) 1 mg/mL injection Inject 1 mg intravenously one time only for 1 dose. For MRI Enterography, Inject 1 mg intravenously, as directed. Slow push at the appropriate time during MRI Scan 1 Each 0 cholecalciferol, Vitamin D3, (VITAMIN D3) 1,250 mcg (50,000 unit) cap capsule Take 1 capsule by mouth one time a week for 8 doses. 4 capsule 1 No current facility-administered medications for this visit. LABS: Results for orders placed or performed in visit on 03/31/23 ETHOSUXIMID/ZARONTIN Result Value Ref Range Ethosuximide <10 (L) 40 - 100 ug/mL CBC + DIFF Result Value Ref Range WBC 6.67 3.70 - 11.00 k/uL RBC 4.86 4.20 - 6.00 m/uL Hemoglobin 14.7 13.0 - 17.0 g/dL Hematocrit 44.8 39.0 - 51.0 % MCV 92.2 80.0 - 100.0 fL MCH 30.2 26.0 - 34.0 pg MCHC 32.8 30.5 - 36.0 g/dL RDW-CV 12.2 11.5 - 15.0 % Platelet Count 230 150 - 400 k/uL MPV 10.7 9.0 - 12.7 fL Neutrophils % 64.5 % Abs Neut 4.29 1.45 - 7.50 k/uL Lymphocytes % 22.2 % Abs Lymph 1.48 1.00 - 4.00 k/uL Monocytes % 10.6 % Abs Chaves 0.71 <0.87 k/uL Eosinophils % 1.9 % Abs Eosin 0.13 <0.46 k/uL Basophils % 0.7 % Abs Baso 0.05 <0.11 k/uL Immature Granulocytes % 0.1 % Abs Immature Gran <0.03 <0.10 k/uL NRBC 0.0 /100 WBC Absolute nRBC <0.01 <0.01 k/uL Diff Type Auto COMP METABOLIC PANEL Result Value Ref Range Protein, Total 7.5 6.3 - 8.0 g/dL Albumin 4.6 3.9 - 4.9 g/dL Calcium, Total 9.3 8.5 - 10.2 mg/dL Bilirubin, Total 0.5 0.2 - 1.3 mg/dL Alkaline Phosphatase 35 (L) 55 - 149 U/L AST 18 14 - 40 U/L ALT 9 (L) 10 - 54 U/L Glucose 78 74 - 99 mg/dL BUN 13 9 - 24 mg/dL Creatinine 1.07 0.73 - 1.22 mg/dL Sodium 141 136 - 144 mmol/L Potassium 4.2 3.7 - 5.1 mmol/L Chloride 102 97 - 105 mmol/L CO2 24 22 - 30 mmol/L Anion Gap 15 9 - 18 mmol/L Estimated Glomerular Filtration Rate 103 >=60 mL/min/1.73m VALPROIC A/DEPAKENE Result Value Ref Range Valproic Acid 66.7 50.0 - 100.0 ug/mL REVIEW OF SYSTEMS: Constitutional: Negative HENT: Negative Eyes: Negative Respiratory: Negative Cardiovascular: Negative Gastrointestinal: As per HPI Endocrine: Negative Genitourinary: Negative Musculoskeletal: Negative Skin: Negative Allergic/Immunologic: Negative Neurological: Seizures (well controlled, last in November 2021) Hematological: Negative Psychiatric/Behavioral: Negative PHYSICAL EXAMINATION There were no vitals taken for this visit. There is no height or weight on file to calculate BMI. There is no height or weight on file to calculate BSA. Last Wt 04/07/23 : 60.6 kg (133 lb 8 oz) 02/23/23 : 63.5 kg (140 lb) 12/14/22 : 60.3 kg (132 lb 14.4 oz) Physical Exam Limited due to virtual visit Constitutional: He appears well-developed and well-nourished. He is active. IMPRESSION: Bishop is a 18 year old male with ulcerative colitis with segmental colitis from the rectum to the hepatic flexure and cecal patch around the appendix I had an extensive discussion with Bishop about IBD and UC. He remains on mesalamine monotherapy without recurrence of symptoms (PUCAI 0). MRE done in December 2022 is reassuring. He was off medications for 1-2 months after not refilling his prescription without symptoms - I reinforced the importance of medication compliance. Will check stool studies, and if normalized, would plan to decrease mesalamine and recheck labs prior to our next visit. He should continue vitamin D and iron supplements. We discussed the importance of skin health, including using sunscreen. He gets yearly eye exams. Will repeat labs. He is Hep A, Hep B, and varicella non-immune; should be revaccinated now that he is off steroids. He will follow up in 3-4 months, virtual OK. PLAN: Patient Instructions - Stool study now - Lab work 1 week prior to next visit - Continue mesalamine - Continue vitamin D and iron supplements - Continue with regular eye screens - Wear sunscreen when outdoors - Can get Hep B, Hep A, and varicella boosters at primary care office - Wait 2-4 weeks off steroids before vaccination - Make sure to complete HPV series - Make sure to receive flu and Covid vaccines - Visit the Crohn's and Colitis Foundation web site ([email or web address] Orders Placed This Encounter CALPROTECTIN,FECAL CBC with Differential Standing Status: Future Standing Expiration Date: 10/31/2023 Basic Metabolic Panel Standing Status: Future Standing Expiration Date: 10/31/2023 Hepatic Function Panel Standing Status: Future Standing Expiration Date: 10/31/2023 GGT Standing Status: Future Standing Expiration Date: 10/31/2023 CRP Standing Status: Future Standing Expiration Date: 10/31/2023 ESR Standing Status: Future Standing Expiration Date: 10/31/2023 Ferritin, Blood Standing Status: Future Standing Expiration Date: 06/01/2024 Scheduling Instructions: In preparation for this test, do not take multivitamins or dietary supplements containing biotin (vitamin B7) for at least 12 hours. Biotin is commonly found in hair, skin, and nail supplements and multivitamins. Tell your doctor if you take supplements containing biotin as part of your medication history. Iron and TIBC, Blood Standing Status: Future Standing Expiration Date: 06/01/2024 Vitamin D-25 Standing Status: Future Standing Expiration Date: 10/31/2023 Plan of care reviewed with patient / parent / undercollar baster, who verbalized understanding? Yes It was a pleasure to see your patient today. Thank you for allowing me to participate in the care of your patient. Please do not hesitate to contact me with any questions; I will be happy to discuss with you the plan of care. Sincerely, Williams Francis MD Pediatric Gastroenterology [facility] documented in this [facility]07-27-2023 History of Present illness Narrative* Jennifer Craig LPN - 04/21/2023 3:15 PM EDT Patient presents for Hepatitis B and Varicella vaccines. Denies any problems at this time. Tolerated injections well. Jennifer Craig LPN documented in this [facility]07-20-2023 Miscellaneous Notes* Telephone Encounter - Luis Norwood DO - 04/14/2023 7:08 AM EDT Order placed Luis Norwood DO * Telephone Encounter - Jennifer Craig LPN - 04/12/2023 2:18 PM EDT Patient scheduled for nurse visit 04/21/23 to receive Hepatitis B and Varicella vaccines. Please place order at this time. Jennifer Craig LPN documented in this [facility]07-19-2023 Miscellaneous Notes* Telephone Encounter - Imelda Morin LPN - 04/13/2023 10:33 AM EDT Images from the original note were not included. PA approved: Pharmacy notified. Imelda Morin LPN * Telephone Encounter - Imelda Morin LPN - 04/13/2023 8:44 AM EDT PA completed through cmm. Will await determination. Imelda Morin LPN * Telephone Encounter - Hermelinda Crystal - 04/12/2023 4:37 PM EDT Prior Authorization Needed: Received by: Phone Requested by (pharmacy name): [facility] Phone number: [phone] Name of medication: divalproex (DEPAKOTE) Strength and dosage: 250mg Insurance company name and phone #: [employer]nal[employer] PCN #: BIN#: Group #: [id number] PATIENT HAS 4 DAYS OF MEDICATION Patient of Dr. De Los Santos [facility] Miscellaneous Notes* Telephone Encounter - Shonda Saha RN - 04/04/2023 8:57 AM EDT Plan per Dr. De Los Santos in results note 04/01/2023: I forgot to enter VPA level. Can the Lab still do it? Otherwise needs redrawn. - Client service can add this to current specimen. - Future ESM orders cancelled. Routed to Dr. De Los Santos. Please file pending orders and CLOSE encounter, Thank you. Shonda Saha RN [facility] Miscellaneous Notes* Telephone Encounter - Jennifer Craig LPN - 02/24/2023 3:39 PM EDT Patient scheduled for nurse visit 03/07/23 to receive Hepatitis A, Hepatitis B, and Varicella vaccines. Please place order at this time. Jennifer Craig LPN [facility] Instructions* Patient Instructions* Williams Francis MD - 02/23/2023 8:59 AM EDT - Blood work and stool study - May stop Prilosec now that off steroids - Continue mesalamine - Continue vitamin D and iron supplements - MRE - Continue with regular eye screens - Wear sunscreen when outdoors - Can get Hep B, Hep A, and varicella boosters at primary care office - Wait 2-4 weeks off steroids before vaccination - Make sure completed HPV series - Make sure received flu and Covid vaccines - Visit the Crohn's and Colitis Foundation web site ([email or web address] [facility] History of Present illness Narrative* Williams Francis MD - 02/23/2023 8:43 AM EDT Images from the original note were not included. PEDIATRIC GASTROENTEROLOGY, HEPATOLOGY, & NUTRITION [address] [place] [address]/[place] [address] Williams Francis MD This is a virtual visit using [employer] video visit. It required patient-provider interaction for themedical decision making as documented below. I have communicated my name and active licensure. The patient's identity and physical location were verified at the time of this visit. Either the patientor their legal medical collections representative has been informed of the risks and benefits of -- and alternatives to-- treatment through a remote evaluation and consents to proceed with the evaluation remotely. SOURCE OF INFORMATION Primary Care Provider: Luis Norwood DO History obtained from: Self HISTORY OF PRESENT ILLNESS: Bishop Srinivasan is a 18 year old man who presents as a follow-up. He has last seen by me 12/14/22. Athis last visit, recommended starting mesalamine. Since his last visit, he continues to do well overall. He has weaned off prednisone, off for the past ~2.5 weeks. He remains on mesalamine without issue. He has intermittent, non-bothersome abdominalpain. BMs are every 1-2 days, formed, non-bloody. Denies night time symptoms. He has good energy levels. Current Diagnosis: Ulcerative Colitis, diagnosed: 11/04/22 Macroscopic Disease Location: segmental colitis from the rectum to the hepatic flexure, cecal patcharound the appendix Disease Phenotype: Inflammatory Perianal Disease: No History of Surgery: No Last IBD Related Hospital Admission: none Endoscopies: 11/04/22 EGD: Normal Colonoscopy: Segmental colitis from the rectum to the hepatic flexure which consisted of erythema, friability, complete loss of vascularity, and superficial ulceration. The rectosigmoid area was a Tony 3. The left colon, transverse colon and hepatic flexure were a Tony 2. There is an obvious transition to normal mucosa after the hepatic flexure. There was a cecal patch around the appendix that was erythematous, friable with shallow ulceration. The ileocecal valve and terminal ileum were visually normal. Pathology: A. Duodenum, biopsy: - Small bowel mucosa with no diagnostic abnormality. B. Stomach, biopsy: - Mild chronic gastritis with focal activity (see comment). C. Distal esophagus, biopsy: - Squamous mucosa with no diagnostic abnormality. D. Terminal ileum, biopsy: - Small bowel mucosa with no diagnostic abnormality. E. Cecum, biopsy: - Colonic mucosa with no diagnostic abnormality. F. Right colon, biopsy: - Colonic mucosa with no diagnostic abnormality. G. Transverse colon, biopsy: - Chronic moderately active colitis, negative for granulomas or dysplasia. H. Left colon, biopsy: - Chronic moderately active colitis, negative for granulomas or dysplasia. I. Rectum, biopsy: - Chronic moderately active proctitis, negative for granulomas or dysplasia. Imaging: Normal (12/31/22) Extra-intestinal manifestations: None Labs: Hemoglobin Date Value Ref Range Status 10/26/2022 13.1 13.0 - 17.0 g/dL Final 08/16/2022 15.0 13.0 - 17.0 g/dL Final 09/21/2016 14.1 (H) 10.6 - 13.4 g/dL Final Hematocrit Date Value Ref Range Status 10/26/2022 40.8 39.0 - 51.0 % Final 08/16/2022 44.8 39.0 - 51.0 % Final 09/21/2016 40.2 (H) 32.2 - 39.8 % Final WBC Date Value Ref Range Status 10/26/2022 11.44 (H) 3.70 - 11.00 k/uL Final 08/16/2022 8.48 3.70 - 11.00 k/uL Final 09/21/2016 6.39 4.27 - 11.40 k/uL Final Platelet Count Date Value Ref Range Status 10/26/2022 334 150 - 400 k/uL Final 08/16/2022 248 150 - 400 k/uL Final 09/21/2016 225 150 - 400 k/uL Final CRP Date Value Ref Range Status 10/26/2022 0.4 <0.9 mg/dL Final Sed Rate, Westergren Date Value Ref Range Status 10/26/2022 27 (H) 0 - 15 mm/hr Final Albumin Date Value Ref Range Status 10/26/2022 4.5 3.2 - 4.5 g/dL Final 08/16/2022 5.1 (H) 3.2 - 4.5 g/dL Final 09/21/2016 4.2 3.8 - 5.4 g/dL Final ALT Date Value Ref Range Status 10/26/2022 10 10 - 54 U/L Final Comment: Reference ranges for this patient's age group have not been established. These reference ranges reflect verified or established ranges for the adult population. Interpret these ranges with caution using the clinical context and additional reference resources. 08/16/2022 11 10 - 54 U/L Final Comment: Reference ranges for this patient's age group have not been established. These reference ranges reflect verified or established ranges for the adult population. Interpret these ranges with caution using the clinical context and additional reference resources. 09/21/2016 10 10 - 54 U/L Final Comment: (NOTE) Reference ranges for this patient's age group have not been established. These reference ranges reflect verified or established ranges for the adult population. Interpret these ranges wtih caution using clinical context and additional reference resources. Calprotectin, Fecal Date Value Ref Range Status 10/28/2022 2,908.9 (H) 0 - 50 mg/kg Final Comment: INTERPRETIVE INFORMATION: Calprotectin, Fecal <50.0 mg/kg : Normal 50.0-120.0 mg/kg: Borderline. Test should be re-evaluated in 4-6 wks. >120.0 mg/kg: Abnormal Current IBD Medications: mesalamine Previous medications: Prednisone: last course Oct-January 2023 History of C.diff: none Eye exam: Date of last visit: April 2022 Iron Stores: Ferritin (goal >100 ng/mL) Transferrin (goal saturation >20%) Iron Date Value Ref Range Status 10/26/2022 36 (L) 41 - 186 ug/dL Final TIBC Date Value Ref Range Status 10/26/2022 427 (H) 232 - 386 ug/dL Final Transferrin Saturation Date Value Ref Range Status 10/26/2022 8.4 (L) 15.0 - 57.0 % Final Therapy: iron supplement Bone Health: Vitamin D 25 Hydroxy (ng/mL) Date Value 10/26/2022 10.7 05/03/2016 41.9 Treatment: High dose vit D Bone-Mineral DEXA: Date: none Result: none Growth Growth Failure: no (Defined as Height percentile changed lower by two isobars or Height percentile <3rd percentile for age or Height velocity <3rd percentile for age) Last Ht 12/14/22 : 173 cm (5' 8.11) 10/26/22 : 173 cm (5' 8.11) 07/05/22 : 173 cm (5' 8.11) 03/30/22 : 174.5 cm (5' 8.7) 01/04/18 : 157 cm (5' 1.81) Nutritional Failure: No (Defined as: Weight percentile changed lower by two isobars or Weight loss ? 10% or Body mass index<3rd percentile for age) Weight: Last Wt 02/23/23 : 63.5 kg (140 lb) 12/14/22 : 60.3 kg (132 lb 14.4 oz) 11/16/22 : 60.3 kg (133 lb) 11/04/22 : 57.5 kg (126 lb 12.2 oz) 10/26/22 : 60.6 kg (133 lb 11.2 oz) No height and weight on file for this encounter. Immunizations: Hepatitis B: sAb: Negative sAg: Negative Varicella IgG: Negative Hepatitis B: Date 11/04/22 Surface Antibody negative, Surface Antigen negative Re- vaccination: Recommended Hepatitis A: 11/04/22, negative Re-vaccination: Recommended Varicella Ig11/04/22, negative (no live vaccines on immunosuppression) HPV (9-26 years old): unknown, Recommended (age appropriate) PPSV23 (one-time re-vaccination after 5 years): unknown, Recommended when available Last Flu Immunization: unknown COVID19 Vaccine: unknown COVID19 Infection: unknown Yearly labs: GGT Date Value Ref Range Status 10/26/2022 15 10 - 70 U/L Final Comment: Reference ranges for this patient's age group have not been established. These reference ranges reflect verified or established ranges for the adult population. Interpret these ranges with caution using the clinical context and additional reference resources. Protein, Urine Date Value Ref Range Status 02/22/2009 neg Neg mg/dL Cancer Prevention: Dysplasia Screening: Due 2030 Diagnosed: 2022 UC or >1/3 of colon in CD 8 years after diagnosis As you know, sine right before 2021 he started to have loose stools 1- 2 times a day, pieces mixed with water, and would see blood on the toilet paper every time he wiped. He was started on Pepcid without improvement. By around New Years he continued to have loose stools, pieces mixed withblood, after which there would be a few drops of bright red blood in the toilet bowel. BMs currently are 2-3 times a day with blood in the toilet bowl. He has also started to have intermittent belly pain all over, worse for about 30 seconds after having a BM. He has difficulty falling asleep due topain, but has not woken up at night needing to go to the bathroom. He has started to take Imodium to prevent symptoms while in school. Prior to 2021 , stools were 3-4 times a week, like thick logs. He would need to strain a little, but otherwise not much difficulty. Denies seeing blood. He otherwise has a good appetite and is eating well. Denies difficulty swallowing or like like foodgets stuck. Denies nausea and vomiting. Denies weight loss, fever, headache, vision changes, eye pain, mouth sores, joint pain, rashes. He has had intermittent muscles spasms. PMH: epilepsy, IBD PSH: none FH: Mom with UC, PGM with IBD (unsure which), maternal great aunt with UC, otherwise negative for celiac disease, liver disease, autoimmune disease SH: parents , lives with mom and step-dad, will occasionally see dad, has 2 paternal half brother; completed 12th grade, unsure what will do next year ALLERGIES Allergen Reactions Sunscreen Rash, Itching Equate brand ACTIVE PROBLEM LIST Other Ulcerative Colitis With Rectal Bleeding ([facility]) - 11/16/2022 Vitamin D Deficiency - 11/16/2022 Childhood Absence Epilepsy, Refractory ([facility]) - 11/06/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, Intractable, With Status Epilepticus ([facility]) - 11/03/2015 Well Child Check - 10/25/2014 Partial Epilepsy With Impairment of Consciousness ([facility]) - 06/11/2008 PAST MEDICAL HISTORY Diagnosis Date Early onset of delivery, delivered, with or without mention of antepartum condition 29 weeks gestation, Hospitalized 9 weeks in NICU [facility] Esophageal reflux Febrile seizure (HCC) Generalized seizure disorder (HCC) Hydrocele Hyposmolality and/or hyponatremia Respiratory distress syndrome in Seizures ([facility]) febrile--see Neuro workup Unspecified and jaundice PAST SURGICAL HISTORY Procedure Laterality Date CIRCUMCISION PHOTOTHERAPY Social History Tobacco Use Smoking status: Never Passive exposure: Yes Smokeless tobacco: Never Tobacco comments: mother smokes outside Vaping Use Vaping Use: Never used Substance Use Topics Alcohol use: Never Drug use: Never FAMILY HISTORY Problem Relation Age of Onset None Father None Paternal Grandfather other (Ulcerative Colitiis) Paternal Grandmother other (GERD) Paternal Grandmother other (Ulcerative Colitis`) Mother other (ulcerative colitis) Maternal Grandmother great GM None Maternal Grandfather Current Outpatient Medications Medication Sig Dispense Refill Mesalamine (LIALDA) 1.2 gram EC tablet Take 4 tablets by mouth daily with breakfast. 120 tablet 5 predniSONE (DELTASONE) 5 mg tablet Take 8 tablets by mouth once daily. Wean as advised 320 tablet 1 omeprazole (PRILOSEC) 40 mg capsule Take 1 capsule by mouth daily before breakfast. 30 capsule 3 ethosuximide (ZARONTIN) 250 mg capsule Take 750 mg in the morning and 500 mg in the evening daily 150 capsule 5 glucagon (GLUCAGEN) 1 mg/mL injection Inject 1 mg intravenously one time only for 1 dose. For MRI Enterography, Inject 1 mg intravenously, as directed. Slow push at the appropriate time during MRI Scan 1 Each 0 cholecalciferol, Vitamin D3, (VITAMIN D3) 1,250 mcg (50,000 unit) cap capsule Take 1 capsule by mouth one time a week for 8 doses. 4 capsule 1 No current facility-administered medications for this visit. LABS: Results for orders placed or performed during the hospital encounter of 11/04/22 SURGICAL PATHOLOGY Result Value Ref Range Case Report Surgical Pathology Report Case: [id number] Authorizing Provider: Shamika Loco MD Collected: 11/04/2022 10:57 AM Ordering Location: Admitting Received: 11/04/2022 03:54 PM Pathologist: Lanre Herron MD Specimens: A) - DUODENUM BIOPSY B) - STOMACH BIOPSY C) - ESOPHAGUS BIOPSY, Distal Esophagus D) - TERMINAL ILEUM BIOPSY E) - CECUM BIOPSY F) - COLON RIGHT BIOPSY G) - TRANSVERSE COLON BIOPSY H) - COLON LEFT BIOPSY I) - RECTAL BIOPSY FINAL DIAGNOSIS A. Duodenum, biopsy: - Small bowel mucosa with no diagnostic abnormality. B. Stomach, biopsy: - Mild chronic gastritis with focal activity (see comment). C. Distal esophagus, biopsy: - Squamous mucosa with no diagnostic abnormality. D. Terminal ileum, biopsy: - Small bowel mucosa with no diagnostic abnormality. E. Cecum, biopsy: - Colonic mucosa with no diagnostic abnormality. F. Right colon, biopsy: - Colonic mucosa with no diagnostic abnormality. G. Transverse colon, biopsy: - Chronic moderately active colitis, negative for granulomas or dysplasia. H. Left colon, biopsy: - Chronic moderately active colitis, negative for granulomas or dysplasia. I. Rectum, biopsy: - Chronic moderately active proctitis, negative for granulomas or dysplasia. [facility] 11/08/2022 Diagnosis Comment B. Given the presence of chronic gastritis, an immunohistochemical stain for Helicobacter pylori organisms has been performed on block B1 and is negative. Laboratory Developed Test (LDT) Disclaimer: Performance characteristics of immunohistochemical, immunofluorescent and chromogenic in-situ hybridization tests have been determined by the performing laboratory within [facility] [place] ([facility], [facility], [facility], [facility], [facility], or [facility]) in a manner consistent with CLIA requirements. One or more of these tests have not been cleared or approved by the FDA. [facility] is regulated under CLIA as qualified to perform high-complexity testing. These tests are used for clinical purposes. They should not be regarded as investigational or for research. Positive and negative controls stain appropriately. Gross Description A. DUODENUM BIOPSY Received in formalin are two pieces of felix, soft tissue aggregating to 0.5 x 0.3 x 0.1 cm. Totally submitted in one cassette. B. STOMACH BIOPSY Received in formalin are multiple pieces of felix, soft tissue aggregating to 0.5 x 0.5 x 0.1 cm. Totally submitted in one cassette. C. ESOPHAGUS BIOPSY Received in formalin are two pieces of felix, soft tissue aggregating to 0.3 x 0.2 x 0.1 cm. Totally submitted in one cassette. D. TERMINAL ILEUM BIOPSY Received in formalin are two pieces of felix, soft tissue aggregating to 0.3 x 0.2 x 0.2 cm. Totally submitted in one cassette. E. CECUM BIOPSY Received in formalin are two pieces of felix, soft tissue aggregating to 0.4 x 0.2 x 0.1 cm. Totally submitted in one cassette. F. COLON RIGHT BIOPSY Received in formalin are two pieces of felix, soft tissue aggregating to 0.3 x 0.2 x 0.1 cm. Totally submitted in one cassette. G. TRANSVERSE COLON BIOPSY Received in formalin is one piece of felix, soft tissue measuring 0.7 x 0.4 x 0.1 cm. Totally submitted in one cassette. H. COLON LEFT BIOPSY Received in formalin are multiple pieces of felix, soft tissue aggregating to 0.4 x 0.3 x 0.2 cm. Totally submitted in one cassette. I. RECTAL BIOPSY Received in formalin are two pieces of felix, soft tissue aggregating to 0.4 x 0.2 x 0.1 cm. Totally submitted in one cassette. JTS November 04, 2022 6:35 PM Gross examination performed at [facility], [address] [place] [address] Clinical History Pre-op diagnosis: Diarrhea, unspecified type [R19.7] Blood in stool [K92.1] Performing Lab Diagnostic interpretation performed at [facility], [address] [place] [address] CLIA# [id number] Land Inspector: Jun Infante M.D. HEPATITIS A ANTIBODY, IGG Result Value Ref Range Hepatitis A IgG Negative Negative VARICELLA ZOSTER IGG Result Value Ref Range Varicella Zoster IgG, Qual Negative (A) Positive HEP C AB IA W/CONF SCRN Result Value Ref Range Hep C Antibody IA Negative Negative HEP B SURF AG SCRN Result Value Ref Range HBsAg Negative Negative HEP B SURF AB Result Value Ref Range Hep B Surface Ab, Qual Negative (A) Positive Hep B Surface Ab Quant <8.00 (L) >=12.00 mIU/mL HEP B CORE AB TOTAL Result Value Ref Range Hepatitis B Core Ab, Total Negative Negative REVIEW OF SYSTEMS: Constitutional: Negative HENT: Negative Eyes: Negative Respiratory: Negative Cardiovascular: Negative Gastrointestinal: As per HPI Endocrine: Negative Genitourinary: Negative Musculoskeletal: Negative Skin: Negative Allergic/Immunologic: Negative Neurological: Seizures (well controlled, last in November 2021) Hematological: Negative Psychiatric/Behavioral: Negative PHYSICAL EXAMINATION Wt 63.5 kg (140 lb) There is no height or weight on file to calculate BMI. There is no height or weight on file to calculate BSA. Last Wt 02/23/23 : 63.5 kg (140 lb) 12/14/22 : 60.3 kg (132 lb 14.4 oz) 11/16/22 : 60.3 kg (133 lb) Physical Exam Limited due to virtual visit Constitutional: He appears well-developed and well-nourished. He is active. IMPRESSION: Bishop is a 18 year old male with ulcerative colitis with segmental colitis from the rectum to the hepatic flexure and cecal patch around the appendix I had an extensive discussion with Bishop about IBD and UC. He has weaned off steroids and is currently on mesalamine monotherapy without recurrence of symptoms (PUCAI 0). MRE done in December 2022 is reassuring. He should continue vitamin D and iron supplements. We discussed the importance of skin health, including using sunscreen. He gets yearly eye exams. Will repeat labs. He is Hep A, Hep B, and varicella non-immune; should be revaccinated 2-4 weeks after being off steroids. He will follow up in 2-3 months, virtual OK. PLAN: Patient Instructions - Blood work and stool study - May stop Prilosec now that off steroids - Continue mesalamine - Continue vitamin D and iron supplements - MRE - Continue with regular eye screens - Wear sunscreen when outdoors - Can get Hep B, Hep A, and varicella boosters at primary care office - Wait 2-4 weeks off steroids before vaccination - Make sure completed HPV series - Make sure received flu and Covid vaccines - Visit the Crohn's and Colitis Foundation web site ([email or web address] Orders Placed This Encounter CBC with Differential Standing Status: Future Standing Expiration Date: 04/25/2023 Basic Metabolic Panel Standing Status: Future Standing Expiration Date: 04/25/2023 Hepatic Function Panel Standing Status: Future Standing Expiration Date: 04/25/2023 GGT Standing Status: Future Standing Expiration Date: 04/25/2023 CRP Standing Status: Future Standing Expiration Date: 04/25/2023 ESR Standing Status: Future Standing Expiration Date: 04/25/2023 Ferritin, Blood Standing Status: Future Standing Expiration Date: 02/24/2024 Scheduling Instructions: In preparation for this test, do not take multivitamins or dietary supplements containing biotin (vitamin B7) for at least 12 hours. Biotin is commonly found in hair, skin, and nail supplements and multivitamins. Tell your doctor if you take supplements containing biotin as part of your medication history. Iron and TIBC, Blood Standing Status: Future Standing Expiration Date: 02/24/2024 Vitamin D-25 Standing Status: Future Standing Expiration Date: 04/25/2023 Calprotectin Standing Status: Future Standing Expiration Date: 05/02/2023 Plan of care reviewed with patient / parent / undercollar baster, who verbalized understanding? Yes It was a pleasure to see your patient today. Thank you for allowing me to participate in the care of your patient. Please do not hesitate to contact me with any questions; I will be happy to discuss with you the plan of care. Sincerely, Williams Francis MD Pediatric Gastroenterology [facility] documented in this [facility] History of Present illness Narrative* Bhaskar Herzog RT(R) - 12/31/2022 3:00 PM EDT Radiology Service Progress Note PATIENT NAME: Bishop Srinivasan DATE OF SERVICE: December 31, 2022 TIME: 3:31 PM PATIENT IDENTITY VERIFICATION COMPLETED USING TWO (2) IDENTIFIERS: Name and Date of confirmedby patient verbally. FALL SCREENING: Has the patient had 2 falls in the last year or 1 fall with injury or currently using an Ambulatory Assistive Device (Walker, Cane, Wheelchair, Crutches, etc.)? No PATIENT GENDER DATA: Male PATIENT RELEVANT IMPLANT DATA REVIEWED: Yes RADIOLOGY DEPARTMENT: MR; Exam(s) Completed: Body: Enterography PERIPHERAL IV DATA: Site assessment: Clean,Dry and Intact, Site disposition Left in for RN SIGNED BY: RT Gael(R) December 31, 2022 3:31 PM documented in this encounterAkron [facility] Instructions* Patient Instructions* Williams Francis MD - 12/14/2022 9:19 AM EDT - Continue steroids, wean as instructed - Continue Prilosec while on steroids - Continue mesalamine - Continue vitamin D and iron supplements - MRE - Continue with regular eye screens - Wear sunscreen when outdoors - Can get Hep B, Hep A, and varicella boosters at primary care office - Wait 2-4 weeks off steroids before vaccination - Make sure completed HPV series - Make sure received flu and Covid vaccines - Visit the Crohn's and Colitis Foundation web site ([email or web address]/) documented in this encounter[facility] History of Present illness Narrative* Williams Francis MD - 12/14/2022 9:08 AM EDT Images from the original note were not included. PEDIATRIC GASTROENTEROLOGY, HEPATOLOGY, & NUTRITION [address] [place] [address] Williams Francis MD SOURCE OF INFORMATION Primary Care Provider: Luis Norwood DO History obtained from: Self and Mother HISTORY OF PRESENT ILLNESS: Bishop Srinivasan is a 17 year old man who presents as a follow-up. He has last seen by me 11/16/22. Athis last visit, recommended starting mesalamine. Since his last visit, he has overall been doing well. He has started mesalamine without issue and has been weaning steroids, currently on 30 mg daily. He denies any abdominal pain. BMs are every other day, formed, non-bloody. Denies night time symptoms. His energy level has improved. Current Diagnosis: Ulcerative Colitis, diagnosed: 2/9/23 Macroscopic Disease Location: segmental colitis from the rectum to the hepatic flexure, cecal patcharound the appendix Disease Phenotype: Inflammatory Perianal Disease: No History of Surgery: No Last IBD Related Hospital Admission: none Endoscopies: 11/04/22 EGD: Normal Colonoscopy: Segmental colitis from the rectum to the hepatic flexure which consisted of erythema, friability, complete loss of vascularity, and superficial ulceration. The rectosigmoid area was a Tony 3. The left colon, transverse colon and hepatic flexure were a Tony 2. There is an obvious transition to normal mucosa after the hepatic flexure. There was a cecal patch around the appendix that was erythematous, friable with shallow ulceration. The ileocecal valve and terminal ileum were visually normal. Pathology: A. Duodenum, biopsy: - Small bowel mucosa with no diagnostic abnormality. B. Stomach, biopsy: - Mild chronic gastritis with focal activity (see comment). C. Distal esophagus, biopsy: - Squamous mucosa with no diagnostic abnormality. D. Terminal ileum, biopsy: - Small bowel mucosa with no diagnostic abnormality. E. Cecum, biopsy: - Colonic mucosa with no diagnostic abnormality. F. Right colon, biopsy: - Colonic mucosa with no diagnostic abnormality. G. Transverse colon, biopsy: - Chronic moderately active colitis, negative for granulomas or dysplasia. H. Left colon, biopsy: - Chronic moderately active colitis, negative for granulomas or dysplasia. I. Rectum, biopsy: - Chronic moderately active proctitis, negative for granulomas or dysplasia. Imaging: Pending MRE Extra-intestinal manifestations: None Labs: Hemoglobin Date Value Ref Range Status 10/26/2022 13.1 13.0 - 17.0 g/dL Final 08/16/2022 15.0 13.0 - 17.0 g/dL Final 09/21/2016 14.1 (H) 10.6 - 13.4 g/dL Final Hematocrit Date Value Ref Range Status 10/26/2022 40.8 39.0 - 51.0 % Final 08/16/2022 44.8 39.0 - 51.0 % Final 09/21/2016 40.2 (H) 32.2 - 39.8 % Final WBC Date Value Ref Range Status 10/26/2022 11.44 (H) 3.70 - 11.00 k/uL Final 08/16/2022 8.48 3.70 - 11.00 k/uL Final 09/21/2016 6.39 4.27 - 11.40 k/uL Final Platelet Count Date Value Ref Range Status 10/26/2022 334 150 - 400 k/uL Final 08/16/2022 248 150 - 400 k/uL Final 09/21/2016 225 150 - 400 k/uL Final CRP Date Value Ref Range Status 10/26/2022 0.4 <0.9 mg/dL Final Sed Rate, Westergren Date Value Ref Range Status 10/26/2022 27 (H) 0 - 15 mm/hr Final Albumin Date Value Ref Range Status 10/26/2022 4.5 3.2 - 4.5 g/dL Final 08/16/2022 5.1 (H) 3.2 - 4.5 g/dL Final 09/21/2016 4.2 3.8 - 5.4 g/dL Final ALT Date Value Ref Range Status 10/26/2022 10 10 - 54 U/L Final Comment: Reference ranges for this patient's age group have not been established. These reference ranges reflect verified or established ranges for the adult population. Interpret these ranges with caution using the clinical context and additional reference resources. 08/16/2022 11 10 - 54 U/L Final Comment: Reference ranges for this patient's age group have not been established. These reference ranges reflect verified or established ranges for the adult population. Interpret these ranges with caution using the clinical context and additional reference resources. 09/21/2016 10 10 - 54 U/L Final Comment: (NOTE) Reference ranges for this patient's age group have not been established. These reference ranges reflect verified or established ranges for the adult population. Interpret these ranges wtih caution using clinical context and additional reference resources. Calprotectin, Fecal Date Value Ref Range Status 10/28/2022 2,908.9 (H) 0 - 50 mg/kg Final Comment: INTERPRETIVE INFORMATION: Calprotectin, Fecal <50.0 mg/kg : Normal 50.0-120.0 mg/kg: Borderline. Test should be re-evaluated in 4-6 wks. >120.0 mg/kg: Abnormal Current IBD Medications: mesalamine Previous medications: Prednisone: last course 11/04/22-present History of C.diff: none Eye exam: Date of last visit: April 2022 Iron Stores: Ferritin (goal >100 ng/mL) Transferrin (goal saturation >20%) Iron Date Value Ref Range Status 10/26/2022 36 (L) 41 - 186 ug/dL Final TIBC Date Value Ref Range Status 10/26/2022 427 (H) 232 - 386 ug/dL Final Transferrin Saturation Date Value Ref Range Status 10/26/2022 8.4 (L) 15.0 - 57.0 % Final Therapy: iron supplement Bone Health: Vitamin D 25 Hydroxy (ng/mL) Date Value 10/26/2022 10.7 05/03/2016 41.9 Treatment: High dose vit D Bone-Mineral DEXA: Date: none Result: none Growth Growth Failure: no (Defined as Height percentile changed lower by two isobars or Height percentile <3rd percentile for age or Height velocity <3rd percentile for age) Last Ht 12/14/22 : 173 cm (5' 8.11) 10/26/22 : 173 cm (5' 8.11) 07/05/22 : 173 cm (5' 8.11) 03/30/22 : 174.5 cm (5' 8.7) 01/04/18 : 157 cm (5' 1.81) Nutritional Failure: No (Defined as: Weight percentile changed lower by two isobars or Weight loss ? 10% or Body mass index<3rd percentile for age) Weight: Last Wt 12/14/22 : 60.3 kg (132 lb 14.4 oz) 11/16/22 : 60.3 kg (133 lb) 11/04/22 : 57.5 kg (126 lb 12.2 oz) 10/26/22 : 60.6 kg (133 lb 11.2 oz) 09/16/22 : 60.3 kg (133 lb) 26 %ile (Z= -0.63) based on CDC (Boys, 2-20 Years) BMI-for-age based on BMI available as of 12/14/2022. Immunizations: Hepatitis B: sAb: Negative sAg: Negative Varicella IgG: Negative Hepatitis B: Date 11/04/22 Surface Antibody negative, Surface Antigen negative Re- vaccination: Recommended Hepatitis A: 11/04/22, negative Re-vaccination: Recommended Varicella Ig11/04/22, negative (no live vaccines on immunosuppression) HPV (9-26 years old): unknown, Recommended (age appropriate) PPSV23 (one-time re-vaccination after 5 years): unknown, Recommended when available Last Flu Immunization: unknown COVID19 Vaccine: unknown COVID19 Infection: unknown Yearly labs: GGT Date Value Ref Range Status 10/26/2022 15 10 - 70 U/L Final Comment: Reference ranges for this patient's age group have not been established. These reference ranges reflect verified or established ranges for the adult population. Interpret these ranges with caution using the clinical context and additional reference resources. Protein, Urine Date Value Ref Range Status 02/22/2009 neg Neg mg/dL Cancer Prevention: Dysplasia Screening: Due 2030 Diagnosed: 2022 UC or >1/3 of colon in CD 8 years after diagnosis 504 Plan: Recommended As you know, sine right before 2021 he started to have loose stools 1- 2 times a day, pieces mixed with water, and would see blood on the toilet paper every time he wiped. He was started on Pepcid without improvement. By around New Years he continued to have loose stools, pieces mixed withblood, after which there would be a few drops of bright red blood in the toilet bowel. BMs currently are 2-3 times a day with blood in the toilet bowl. He has also started to have intermittent belly pain all over, worse for about 30 seconds after having a BM. He has difficulty falling asleep due topain, but has not woken up at night needing to go to the bathroom. He has started to take Imodium to prevent symptoms while in school. Prior to 2021 , stools were 3-4 times a week, like thick logs. He would need to strain a little, but otherwise not much difficulty. Denies seeing blood. He otherwise has a good appetite and is eating well. Denies difficulty swallowing or like like foodgets stuck. Denies nausea and vomiting. Denies weight loss, fever, headache, vision changes, eye pain, mouth sores, joint pain, rashes. He has had intermittent muscles spasms. PMH: epilepsy, IBD PSH: none FH: Mom with UC, PGM with IBD (unsure which), maternal great aunt with UC, otherwise negative for celiac disease, liver disease, autoimmune disease SH: parents , lives with mom and step-dad, will occasionally see dad, has 2 paternal half brother; in 12th grade ALLERGIES Allergen Reactions Sunscreen Rash, Itching Equate brand ACTIVE PROBLEM LIST Other Ulcerative Colitis With Rectal Bleeding ([facility]) - 11/16/2022 Vitamin D Deficiency - 11/16/2022 Childhood Absence Epilepsy, Refractory ([facility]) - 11/06/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, Intractable, With Status Epilepticus ([facility]) - 11/03/2015 Well Child Check - 10/25/2014 Partial Epilepsy With Impairment of Consciousness ([facility]) - 06/11/2008 PAST MEDICAL HISTORY Diagnosis Date Early onset of delivery, delivered, with or without mention of antepartum condition 29 weeks gestation, Hospitalized 9 weeks in NICU [facility] Esophageal reflux Febrile seizure ([facility]) Generalized seizure disorder ([facility]) Hydrocele Hyposmolality and/or hyponatremia Respiratory distress syndrome in Seizures ([facility]) febrile--see Neuro workup Unspecified and jaundice PAST SURGICAL HISTORY Procedure Laterality Date CIRCUMCISION PHOTOTHERAPY Social History Tobacco Use Smoking status: Never Passive exposure: Yes Smokeless tobacco: Never Tobacco comments: mother smokes outside Vaping Use Vaping Use: Never used Substance Use Topics Alcohol use: Never Drug use: Never FAMILY HISTORY Problem Relation Age of Onset None Father None Paternal Grandfather other (Ulcerative Colitiis) Paternal Grandmother other (GERD) Paternal Grandmother other (Ulcerative Colitis`) Mother other (ulcerative colitis) Maternal Grandmother great GM None Maternal Grandfather Current Outpatient Medications Medication Sig Dispense Refill Mesalamine (LIALDA) 1.2 gram EC tablet Take 4 tablets by mouth daily with breakfast. 120 tablet 5 predniSONE (DELTASONE) 5 mg tablet Take 8 tablets by mouth once daily. Wean as advised 320 tablet 1 omeprazole (PRILOSEC) 40 mg capsule Take 1 capsule by mouth daily before breakfast. 30 capsule 3 cholecalciferol, Vitamin D3, (VITAMIN D3) 1,250 mcg (50,000 unit) cap capsule Take 1 capsule by mouth one time a week for 8 doses. 4 capsule 1 ethosuximide (ZARONTIN) 250 mg capsule Take 750 mg in the morning and 500 mg in the evening daily 150 capsule 5 glucagon (GLUCAGEN) 1 mg/mL injection Inject 1 mg intravenously one time only for 1 dose. For MRI Enterography, Inject 1 mg intravenously, as directed. Slow push at the appropriate time during MRI Scan 1 Each 0 No current facility-administered medications for this visit. LABS: Results for orders placed or performed during the hospital encounter of 11/04/22 SURGICAL PATHOLOGY Result Value Ref Range Case Report Surgical Pathology Report Case: [id number] Authorizing Provider: Shamika Loco MD Collected: 11/04/2022 10:57 AM Ordering Location: Admitting Received: 11/04/2022 03:54 PM Pathologist: Lanre Herron MD Specimens: A) - DUODENUM BIOPSY B) - STOMACH BIOPSY C) - ESOPHAGUS BIOPSY, Distal Esophagus D) - TERMINAL ILEUM BIOPSY E) - CECUM BIOPSY F) - COLON RIGHT BIOPSY G) - TRANSVERSE COLON BIOPSY H) - COLON LEFT BIOPSY I) - RECTAL BIOPSY FINAL DIAGNOSIS A. Duodenum, biopsy: - Small bowel mucosa with no diagnostic abnormality. B. Stomach, biopsy: - Mild chronic gastritis with focal activity (see comment). C. Distal esophagus, biopsy: - Squamous mucosa with no diagnostic abnormality. D. Terminal ileum, biopsy: - Small bowel mucosa with no diagnostic abnormality. E. Cecum, biopsy: - Colonic mucosa with no diagnostic abnormality. F. Right colon, biopsy: - Colonic mucosa with no diagnostic abnormality. G. Transverse colon, biopsy: - Chronic moderately active colitis, negative for granulomas or dysplasia. H. Left colon, biopsy: - Chronic moderately active colitis, negative for granulomas or dysplasia. I. Rectum, biopsy: - Chronic moderately active proctitis, negative for granulomas or dysplasia. [facility] 11/08/2022 Diagnosis Comment B. Given the presence of chronic gastritis, an immunohistochemical stain for Helicobacter pylori organisms has been performed on block B1 and is negative. Laboratory Developed Test (LDT) Disclaimer: Performance characteristics of immunohistochemical, immunofluorescent and chromogenic in-situ hybridization tests have been determined by the performing laboratory within [facility] [place] ([facility], [facility], [facility], [facility], [facility], or [facility]) in a manner consistent with CLIA requirements. One or more of these tests have not been cleared or approved by the FDA. [facility] is regulated under CLIA as qualified to perform high-complexity testing. These tests are used for clinical purposes. They should not be regarded as investigational or for research. Positive and negative controls stain appropriately. Gross Description A. DUODENUM BIOPSY Received in formalin are two pieces of felix, soft tissue aggregating to 0.5 x 0.3 x 0.1 cm. Totally submitted in one cassette. B. STOMACH BIOPSY Received in formalin are multiple pieces of felix, soft tissue aggregating to 0.5 x 0.5 x 0.1 cm. Totally submitted in one cassette. C. ESOPHAGUS BIOPSY Received in formalin are two pieces of felix, soft tissue aggregating to 0.3 x 0.2 x 0.1 cm. Totally submitted in one cassette. D. TERMINAL ILEUM BIOPSY Received in formalin are two pieces of felix, soft tissue aggregating to 0.3 x 0.2 x 0.2 cm. Totally submitted in one cassette. E. CECUM BIOPSY Received in formalin are two pieces of felix, soft tissue aggregating to 0.4 x 0.2 x 0.1 cm. Totally submitted in one cassette. F. COLON RIGHT BIOPSY Received in formalin are two pieces of felix, soft tissue aggregating to 0.3 x 0.2 x 0.1 cm. Totally submitted in one cassette. G. TRANSVERSE COLON BIOPSY Received in formalin is one piece of felix, soft tissue measuring 0.7 x 0.4 x 0.1 cm. Totally submitted in one cassette. H. COLON LEFT BIOPSY Received in formalin are multiple pieces of felix, soft tissue aggregating to 0.4 x 0.3 x 0.2 cm. Totally submitted in one cassette. I. RECTAL BIOPSY Received in formalin are two pieces of felix, soft tissue aggregating to 0.4 x 0.2 x 0.1 cm. Totally submitted in one cassette. JTS November 04, 2022 6:35 PM Gross examination performed at [facility], [address] [place] [address] Clinical History Pre-op diagnosis: Diarrhea, unspecified type [R19.7] Blood in stool [K92.1] Performing Lab Diagnostic interpretation performed at [facility], [address] [place] [address] CLIA# [id number] Land Inspector: Jun Infante M.D. HEPATITIS A ANTIBODY, IGG Result Value Ref Range Hepatitis A IgG Negative Negative VARICELLA ZOSTER IGG Result Value Ref Range Varicella Zoster IgG, Qual Negative (A) Positive HEP C AB IA W/CONF SCRN Result Value Ref Range Hep C Antibody IA Negative Negative HEP B SURF AG SCRN Result Value Ref Range HBsAg Negative Negative HEP B SURF AB Result Value Ref Range Hep B Surface Ab, Qual Negative (A) Positive Hep B Surface Ab Quant <8.00 (L) >=12.00 mIU/mL HEP B CORE AB TOTAL Result Value Ref Range Hepatitis B Core Ab, Total Negative Negative REVIEW OF SYSTEMS: Constitutional: Negative HENT: Negative Eyes: Negative Respiratory: Negative Cardiovascular: Negative Gastrointestinal: As per HPI Endocrine: Negative Genitourinary: Negative Musculoskeletal: Negative Skin: Negative Allergic/Immunologic: Negative Neurological: Seizures (well controlled, last in November 2021) Hematological: Negative Psychiatric/Behavioral: Negative PHYSICAL EXAMINATION BP 131/72 Pulse 70 Temp 36.7 C (98.1 F) Ht 173 cm (5' 8.11) Wt 60.3 kg (132 lb 14.4 oz) BMI 20.14 kg/m Body mass index is 20.14 kg/m . Body surface area is 1.7 meters squared. Last Wt 12/14/22 : 60.3 kg (132 lb 14.4 oz) 11/16/22 : 60.3 kg (133 lb) 11/04/22 : 57.5 kg (126 lb 12.2 oz) Physical Exam Constitutional: He appears well-developed and well-nourished. He is active. HENT: Nose: No nasal discharge. Mouth/Throat: Mucous membranes are moist. Eyes: Conjunctivae and EOM are normal. Right eye exhibits no discharge. Left eye exhibits no discharge. Neck: Normal range of motion. No adenopathy. Cardiovascular: Normal rate, regular rhythm, S1 normal and S2 normal. Pulmonary/Chest: Effort normal and breath sounds normal. There is normal air entry. No respiratory distress. He exhibits no retraction. Abdominal: Soft. Bowel sounds are normal. He exhibits no distension. There is no tenderness. There is no rebound and no guarding. No HSM. JUAN deferred. Musculoskeletal: Normal range of motion. He exhibits no tenderness and no deformity. Neurological: He is alert. Skin: Skin is warm. Capillary refill takes less than 3 seconds. No rash noted. No jaundice or pallor. IMPRESSION: Bishop is a 17 year old male with ulcerative colitis with segmental colitis from the rectum to the hepatic flexure and cecal patch around the appendix I had an extensive discussion with Bishop and his mom about IBD and UC. He is currently on mesalamineand weaning steroids with improvement in symptoms (PUCAI 0). He should continue PPI while on steroids. He is scheduled for an MRE. He should continue vitamin D and iron supplements. We discussed the importance of skin health, including using sunscreen. 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 He is Hep A, Hep B, and varicella non-immune; should be revaccinated 2-4 weeks after being off steroids. He will follow up in 2 months, virtual OK. Will plan to repeat lab work at that time. PLAN: Patient Instructions - Continue steroids, wean as instructed - Continue Prilosec while on steroids - Continue mesalamine - Continue vitamin D and iron supplements - MRE - Continue with regular eye screens - Wear sunscreen when outdoors - Can get Hep B, Hep A, and varicella boosters at primary care office - Wait 2-4 weeks off steroids before vaccination - Make sure completed HPV series - Make sure received flu and Covid vaccines - Visit the Crohn's and Colitis Foundation web site (https://www.crohnscolitisfoundation.org/) No orders of the defined types were placed in this encounter. Plan of care reviewed with patient / parent / undercollar baster, who verbalized understanding? Yes I spent 40 minutes in the visit, with more than 50% of the total [id number] time of the visit in counseling / coordination of care. It was a pleasure to see your patient today. Thank you for allowing me to participate in the care of your patient. Please do not hesitate to contact me with any questions; I will be happy to discuss with you the plan of care. Sincerely, Williams Francis MD Pediatric Gastroenterology [facility] documented in this encounterAkron [facility]23 Miscellaneous Notes* Telephone Encounter - Verena Francis RN - 11/26/2022 4:14 PM EST Images from the original note were not included. Spoke with mom, discussed weaning Prednisone to 35 mg at this time. We discussed unsure if pharmacyran the Lialda through both insurance plans. Will follow up with pharmacy on Tuesday to see if secondary was used or if PA may be necessary. Mom states timing of next wean in 12-14 days will be at time of scheduled follow up. She is aware to notify office of any change in symptoms prior to follow up. Mom was very appreciative of call. POLLY Fields MD You; Williams Francis MD 14 minutes ago (3:59 PM) Juan Manuel Fisher if confusion! No prednisone is started at 40 mg per day once per day with the mesalamine and after ~ 12-14 days I start weaning the prednisone by 5 mg increments every 12-14 days at first and then faster every 7-10 days with close monitoring of symptoms to assess response to the mesalamine I get labs and fecal calprotectin along the way to help assess response and he will need a repeat scope to assess mucosal response once off prednisone as well If issues with cost of Lialda you can use any other mesalamine product at induction dosing (lexicomp will show you) like lialda induction dose is 4.8 g x 8-10 weeks I think that is what got confusing with the 8 weeks Happy to help! Thanks Greta Texted Dr. Francis at 3:12 pm and paged at 3:47 pm with no response. With no response. Williams Francis MD You 2 days ago I spoke with Greta about this, she recommended continuing for 8 weeks and start weaning at that point if labs look good, so will do that. * Telephone Encounter - Verena Francis RN - 11/25/2022 5:11 PM EST Spoke with Gertrudis with [employer] plan [phone] to discuss if there are formulary alternatives to Lialda that are more affordable options. Only covered options that cost less than Lialda ($76.22) is Sulfasalazine 500 mg $5.93, Sulfasalazine DR 500 mg 10.04, Balsalazide 750 mg $48. Discussedother Mesalamine products- Asacol 400 mg $149., Apriso 0.375 mg 109.27. No listing for Pentasa. Also reviewed with Dr. Loco regarding Prednisone wean. Prednisone began 11/04, will have Bishop decrease Prednisone by 5 mg every 7-10 days. Will continue to monitor as he weans to see how he tolerates to decide if escalation of therapy is needed. Will review formulary alternatives if appropriate and review with family Prednisone wean. Verena Francis RN * Telephone Encounter - Verena Francis RN - 11/23/2022 11:31 AM EST Newly diagnosed UC 11/04/22, starting Lialda 11/17/22 and Prednisone 40 mg 11/04/22. Plan to decrease Prednisone by 5 mg every 7 day per JOSE 11/16/2022. Spoke with mom [phone] to check in on Bishop. Mom states he is doing better, he is going to school, his energy level remains low. School is almost over and she feels part of his fatigue is emotional as well. His appetite is great, always has been. Mom has not noticed any urgency or nocturnal stools. He has not shared any consistency or times he has gone to the restroom. Discussed prednisone wean, Mom thought they were to remain on Prednisone until follow up 12/14/22. Advised mom will review with Dr. Francis, (per note should begin after starting Mesalamine). Reviewed with mom cost of Lialda, which is over $80. Primary insurance is through Bishop's dad, she does not have contact with her [employer] usband and she is unable to speak with plan- [place]. Will try to speak with insurance to discuss formulary options. Mom is worried of costs, Bishop is discussing moving out on his own after graduation. Mom also has not heard of school note being sent. Advised this was composed, will follow up. Also provided office number for mom if needed. Mom did not have further questions on IBD, she herself has IBD and states Dr. Francis was able to answer Cesia questions during JOSE. Mom was very appreciative of call. Will follow up on school note (message sent to [employer]), prednisone wean (routing to Dr. Francis) and insurance formularies (will complete). Verena Francis RN documented in this encounterAkron [facility]03-01-2023 Miscellaneous Notes* Telephone Encounter - Aruna Brenner RN - 11/24/2022 4:44 PM EST Faxed form to school nurse. Aruna Brenner RN, BSN * Telephone Encounter - Aruna Brenner RN - 11/19/2022 3:23 PM EST Generated school excuse note from Ulcerative Colitis. Routed to Dr. Francis and Kan Francis to sign/review and fax to school nurse. Aruna Brenner RN, BSN documented in this encounterAkron [facility]02-22-2023 Miscellaneous Notes* Telephone Encounter - Jennifer Simmons - 11/17/2022 8:04 AM EST Patient phoned to request and alternative to the following prescription(s) Mescalamine Date of Last Visit: 11/16/22 Date of Follow-Up: none scheduled Jennifer Simmons Mom went to curing pickling packer this medication for Bishop and it costs $365/month.States this is unaffordable for her and Bishop. Her question is two part... 1- need to switch him to a medication that is affordable, what do you recommend? David was also having difficulty getting connected to our office. I gave Mom direct number to call in the future. Mom: [phone] documented in this encounterAkron [facility]02-21-2023 Miscellaneous Notes* Addendum Note - Williams Francis MD - 11/16/2022 11:10 AM ESTAddended by: WILLIAMS FRANCIS on: 11/16/2022 11:10 AM Modules accepted: Orders documented in this encounterAkron Children'S Hospital02-21-2023 Instructions* Patient Instructions* Williams Francis MD - 11/16/2022 9:48 AM EST - Continue steroids - Continue Prilosec while on steroids - Start mesalamine - Once mesalamine started, can wean steroids by decreasing by 1 tablet every 7 days (8 tablets -> 7 -> 6 -> 5 -> 4 -> 3 -> 2 -> 1 -> off) - Continue vitamin D and iron supplements - Schedule MRE - Schedule ophthalmology exam - Wear sunscreen when outdoors - Can get Hep B and Hep A boosters at primary care office - Make sure completed HPV series - Make sure received flu and Covid vaccines - Visit the Crohn's and Colitis Foundation web site ([email or web address].crohnscolitisfoundation.org/) documented in this encounterAkron [facility]02-21-2023 History of Present illness Narrative* Williams Francis MD - 11/16/2022 8:43 AM EST Images from the original note were not included. PEDIATRIC GASTROENTEROLOGY, HEPATOLOGY, & NUTRITION [address] [place] [address]/[place] [address] Williams Francis MD SOURCE OF INFORMATION Primary Care Provider: Luis Norwood DO History obtained from: Self and Mother HISTORY OF PRESENT ILLNESS: Bishop Srinivasan is a 17 year old man who presents as a follow-up. Following his last visit, he had lab work concerning for IBD with EGD/colonoscopy notable for segmental colitis from the rectum to the hepatic flexure which consisted of erythema, friability, complete loss of vascularity, and superficial ulceration. The rectosigmoid area was a Tony 3. The left colon, transverse colon and hepatic flexure were a Tony 2. There is an obvious transition to normal mucosa after the hepatic flexure. There was a cecal patch around the appendix that was erythematous, friable with shallow ulceration. The ileocecal valve and terminal ileum were visually normal. Following his endoscopy, he started daily steroids with decreased belly pain and no more blood seenin stools. BMs are once every 1-2 days, loose/watery. Denies night time symptoms. His energy level has improved. Current Diagnosis: Ulcerative Colitis, diagnosed: 11/04/22 Macroscopic Disease Location: segmental colitis from the rectum to the hepatic flexure, cecal patcharound the appendix Disease Phenotype: Inflammatory Perianal Disease: No History of Surgery: No Last IBD Related Hospital Admission: none Endoscopies: 11/04/22 EGD: Normal Colonoscopy: Segmental colitis from the rectum to the hepatic flexure which consisted of erythema, friability, complete loss of vascularity, and superficial ulceration. The rectosigmoid area was a Tony 3. The left colon, transverse colon and hepatic flexure were a Tony 2. There is an obvious transition to normal mucosa after the hepatic flexure. There was a cecal patch around the appendix that was erythematous, friable with shallow ulceration. The ileocecal valve and terminal ileum were visually normal. Pathology: A. Duodenum, biopsy: - Small bowel mucosa with no diagnostic abnormality. B. Stomach, biopsy: - Mild chronic gastritis with focal activity (see comment). C. Distal esophagus, biopsy: - Squamous mucosa with no diagnostic abnormality. D. Terminal ileum, biopsy: - Small bowel mucosa with no diagnostic abnormality. E. Cecum, biopsy: - Colonic mucosa with no diagnostic abnormality. F. Right colon, biopsy: - Colonic mucosa with no diagnostic abnormality. G. Transverse colon, biopsy: - Chronic moderately active colitis, negative for granulomas or dysplasia. H. Left colon, biopsy: - Chronic moderately active colitis, negative for granulomas or dysplasia. I. Rectum, biopsy: - Chronic moderately active proctitis, negative for granulomas or dysplasia. Imaging: Pending MRE Extra-intestinal manifestations: None Labs: Hemoglobin Date Value Ref Range Status 10/26/2022 13.1 13.0 - 17.0 g/dL Final 08/16/2022 15.0 13.0 - 17.0 g/dL Final 09/21/2016 14.1 (H) 10.6 - 13.4 g/dL Final Hematocrit Date Value Ref Range Status 10/26/2022 40.8 39.0 - 51.0 % Final 08/16/2022 44.8 39.0 - 51.0 % Final 09/21/2016 40.2 (H) 32.2 - 39.8 % Final WBC Date Value Ref Range Status 10/26/2022 11.44 (H) 3.70 - 11.00 k/uL Final 08/16/2022 8.48 3.70 - 11.00 k/uL Final 09/21/2016 6.39 4.27 - 11.40 k/uL Final Platelet Count Date Value Ref Range Status 10/26/2022 334 150 - 400 k/uL Final 08/16/2022 248 150 - 400 k/uL Final 09/21/2016 225 150 - 400 k/uL Final CRP Date Value Ref Range Status 10/26/2022 0.4 <0.9 mg/dL Final Sed Rate, Westergren Date Value Ref Range Status 10/26/2022 27 (H) 0 - 15 mm/hr Final Albumin Date Value Ref Range Status 10/26/2022 4.5 3.2 - 4.5 g/dL Final 08/16/2022 5.1 (H) 3.2 - 4.5 g/dL Final 09/21/2016 4.2 3.8 - 5.4 g/dL Final ALT Date Value Ref Range Status 10/26/2022 10 10 - 54 U/L Final Comment: Reference ranges for this patient's age group have not been established. These reference ranges reflect verified or established ranges for the adult population. Interpret these ranges with caution using the clinical context and additional reference resources. 08/16/2022 11 10 - 54 U/L Final Comment: Reference ranges for this patient's age group have not been established. These reference ranges reflect verified or established ranges for the adult population. Interpret these ranges with caution using the clinical context and additional reference resources. 09/21/2016 10 10 - 54 U/L Final Comment: (NOTE) Reference ranges for this patient's age group have not been established. These reference ranges reflect verified or established ranges for the adult population. Interpret these ranges wtih caution using clinical context and additional reference resources. Calprotectin, Fecal Date Value Ref Range Status 10/28/2022 2,908.9 (H) 0 - 50 mg/kg Final Comment: INTERPRETIVE INFORMATION: Calprotectin, Fecal <50.0 mg/kg : Normal 50.0-120.0 mg/kg: Borderline. Test should be re-evaluated in 4-6 wks. >120.0 mg/kg: Abnormal Current IBD Medications: none Previous medications: Prednisone: last course 11/04/22-present History of C.diff: none Eye exam: Date of last visit: none Iron Stores: Ferritin (goal >100 ng/mL) Transferrin (goal saturation >20%) Iron Date Value Ref Range Status 10/26/2022 36 (L) 41 - 186 ug/dL Final TIBC Date Value Ref Range Status 10/26/2022 427 (H) 232 - 386 ug/dL Final Transferrin Saturation Date Value Ref Range Status 10/26/2022 8.4 (L) 15.0 - 57.0 % Final Therapy: iron supplement Bone Health: Vitamin D 25 Hydroxy (ng/mL) Date Value 10/26/2022 10.7 05/03/2016 41.9 Treatment: High dose vit D Bone-Mineral DEXA: Date: none Result: none Growth Growth Failure: no (Defined as Height percentile changed lower by two isobars or Height percentile <3rd percentile for age or Height velocity <3rd percentile for age) Last Ht 10/26/22 : 173 cm (5' 8.11) 07/05/22 : 173 cm (5' 8.11) 03/30/22 : 174.5 cm (5' 8.7) 01/04/18 : 157 cm (5' 1.81) 04/04/17 : 147.5 cm (4' 10.07) Nutritional Failure: No (Defined as: Weight percentile changed lower by two isobars or Weight loss ? 10% or Body mass index<3rd percentile for age) Weight: Last Wt 11/16/22 : 60.3 kg (133 lb) 11/04/22 : 57.5 kg (126 lb 12.2 oz) 10/26/22 : 60.6 kg (133 lb 11.2 oz) 09/16/22 : 60.3 kg (133 lb) 07/05/22 : 58 kg (127 lb 14.4 oz) No height and weight on file for this encounter. Immunizations: Hepatitis B: sAb: Negative sAg: Negative Varicella IgG: Negative Hepatitis B: Date 11/04/22 Surface Antibody negative, Surface Antigen negative Re- vaccination: Recommended Hepatitis A: 11/04/22, negative Re-vaccination: Recommended Varicella Ig11/04/22, negative (no live vaccines on immunosuppression) HPV (9-26 years old): unknown, Recommended (age appropriate) PPSV23 (one-time re-vaccination after 5 years): unknown, Recommended when available Last Flu Immunization: unknown COVID19 Vaccine: unknown COVID19 Infection: unknown Yearly labs: GGT Date Value Ref Range Status 10/26/2022 15 10 - 70 U/L Final Comment: Reference ranges for this patient's age group have not been established. These reference ranges reflect verified or established ranges for the adult population. Interpret these ranges with caution using the clinical context and additional reference resources. Protein, Urine Date Value Ref Range Status 02/22/2009 neg Neg mg/dL Cancer Prevention: Dysplasia Screening: Due 2030 Diagnosed: 2022 UC or >1/3 of colon in CD 8 years after diagnosis 504 Plan: Recommended As you know, sine right before 2021 he started to have loose stools 1- 2 times a day, pieces mixed with water, and would see blood on the toilet paper every time he wiped. He was started on Pepcid without improvement. By around New Years he continued to have loose stools, pieces mixed withblood, after which there would be a few drops of bright red blood in the toilet bowel. BMs currently are 2-3 times a day with blood in the toilet bowl. He has also started to have intermittent belly pain all over, worse for about 30 seconds after having a BM. He has difficulty falling asleep due topain, but has not woken up at night needing to go to the bathroom. He has started to take Imodium to prevent symptoms while in school. Prior to 2021 , stools were 3-4 times a week, like thick logs. He would need to strain a little, but otherwise not much difficulty. Denies seeing blood. He otherwise has a good appetite and is eating well. Denies difficulty swallowing or like like foodgets stuck. Denies nausea and vomiting. Denies weight loss, fever, headache, vision changes, eye pain, mouth sores, joint pain, rashes. He has had intermittent muscles spasms. PMH: epilepsy, newly diagnosed IBD PSH: none FH: Mom with UC, PGM with IBD (unsure which), maternal great aunt with UC, otherwise negative for celiac disease, liver disease, autoimmune disease SH: parents , lives with mom and step-dad, will occasionally see dad, has 2 paternal half brother; in 12th grade ALLERGIES Allergen Reactions Sunscreen Rash, Itching Equate brand ACTIVE PROBLEM LIST Other Ulcerative Colitis With Rectal Bleeding (Hcc) - 11/16/2022 Vitamin D Deficiency - 11/16/2022 Childhood Absence Epilepsy, 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/06/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, Intractable, With Status Epilepticus (Hcc) - 11/03/2015 Well Child Check - 10/25/2014 Partial Epilepsy With Impairment of Consciousness (Hcc) - 06/11/2008 PAST MEDICAL HISTORY Diagnosis Date Early onset of delivery, delivered, with or without mention of antepartum condition 29 weeks gestation, Hospitalized 9 weeks in NICU [facility] Esophageal reflux Febrile seizure (HCC) Generalized seizure disorder (HCC) Hydrocele Hyposmolality and/or hyponatremia Respiratory distress syndrome in Seizures (HCC) febrile--see Neuro workup Unspecified and jaundice PAST SURGICAL HISTORY Procedure Laterality Date CIRCUMCISION PHOTOTHERAPY Social History Tobacco Use Smoking status: Never Passive exposure: Yes Smokeless tobacco: Never Tobacco comments: mother smokes outside Vaping Use Vaping Use: Never used Substance Use Topics Alcohol use: Never Drug use: Never FAMILY HISTORY Problem Relation Age of Onset None Father None Paternal Grandfather other (Ulcerative Colitiis) Paternal Grandmother other (GERD) Paternal Grandmother other (Ulcerative Colitis`) Mother other (ulcerative colitis) Maternal Grandmother great GM None Maternal Grandfather Current Outpatient Medications Medication Sig Dispense Refill predniSONE (DELTASONE) 5 mg tablet Take 8 tablets by mouth once daily. Wean as advised 320 tablet 1 omeprazole (PRILOSEC) 40 mg capsule Take 1 capsule by mouth daily before breakfast. 30 capsule 3 cholecalciferol, Vitamin D3, (VITAMIN D3) 1,250 mcg (50,000 unit) cap capsule Take 1 capsule by mouth one time a week for 8 doses. 4 capsule 1 ethosuximide (ZARONTIN) 250 mg capsule Take 750 mg in the morning and 500 mg in the evening daily 150 capsule 5 iv contrast (will be provided with radiology test) MRI Enterography Inject, intravenously, once for1 dose. No IV access, insert saline lock prior to the beginning of sedation, infusion, injection ofimaging exam. Discontinue saline lock post exam. If Pt. has a central line or IVAD, may access for administration according to line specific nursing protocol. Once exam is complete flush line and de-access according to line specific nursing protocol in the MR contrast administration guidelines link. 1 Each 0 enteric contrast (will be provided with radiology test) For MRI ENTEROGRAPHY WO/W Administer, As Directed One Time Only, via Oral, Rectal, both Oral and Rectal, Enteric Tube, Stoma or Indwelling Catheter, Enteric Contrast as designated per enteric contrast guidelines 1 Each 0 glucagon (GLUCAGEN) 1 mg/mL injection Inject 1 mg intravenously one time only for 1 dose. For MRI Enterography, Inject 1 mg intravenously, as directed. Slow push at the appropriate time during MRI Scan 1 Each 0 Mesalamine (LIALDA) 1.2 gram EC tablet Take 4 tablets by mouth daily with breakfast. 60 tablet 1 No current facility-administered medications for this visit. LABS: Results for orders placed or performed during the hospital encounter of 11/04/22 SURGICAL PATHOLOGY Result Value Ref Range Case Report Surgical Pathology Report Case: [id number] Authorizing Provider: Shamika Loco MD Collected: 11/04/2022 10:57 AM Ordering Location: Admitting Received: 11/04/2022 03:54 PM Pathologist: Lanre Herron MD Specimens: A) - DUODENUM BIOPSY B) - STOMACH BIOPSY C) - ESOPHAGUS BIOPSY, Distal Esophagus D) - TERMINAL ILEUM BIOPSY E) - CECUM BIOPSY F) - COLON RIGHT BIOPSY G) - TRANSVERSE COLON BIOPSY H) - COLON LEFT BIOPSY I) - RECTAL BIOPSY FINAL DIAGNOSIS A. Duodenum, biopsy: - Small bowel mucosa with no diagnostic abnormality. B. Stomach, biopsy: - Mild chronic gastritis with focal activity (see comment). C. Distal esophagus, biopsy: - Squamous mucosa with no diagnostic abnormality. D. Terminal ileum, biopsy: - Small bowel mucosa with no diagnostic abnormality. E. Cecum, biopsy: - Colonic mucosa with no diagnostic abnormality. F. Right colon, biopsy: - Colonic mucosa with no diagnostic abnormality. G. Transverse colon, biopsy: - Chronic moderately active colitis, negative for granulomas or dysplasia. H. Left colon, biopsy: - Chronic moderately active colitis, negative for granulomas or dysplasia. I. Rectum, biopsy: - Chronic moderately active proctitis, negative for granulomas or dysplasia. [facility] 11/08/2022 Diagnosis Comment B. Given the presence of chronic gastritis, an immunohistochemical stain for Helicobacter pylori organisms has been performed on block B1 and is negative. Laboratory Developed Test (LDT) Disclaimer: Performance characteristics of immunohistochemical, immunofluorescent and chromogenic in-situ hybridization tests have been determined by the performing laboratory within [facility] [place] ([facility], [facility], [facility], [facility], [facility], or [facility]) in a manner consistent with CLIA requirements. One or more of these tests have not been cleared or approved by the FDA. [facility] is regulated under CLIA as qualified to perform high-complexity testing. These tests are used for clinical purposes. They should not be regarded as investigational or for research. Positive and negative controls stain appropriately. Gross Description A. DUODENUM BIOPSY Received in formalin are two pieces of felix, soft tissue aggregating to 0.5 x 0.3 x 0.1 cm. Totally submitted in one cassette. B. STOMACH BIOPSY Received in formalin are multiple pieces of felix, soft tissue aggregating to 0.5 x 0.5 x 0.1 cm. Totally submitted in one cassette. C. ESOPHAGUS BIOPSY Received in formalin are two pieces of felix, soft tissue aggregating to 0.3 x 0.2 x 0.1 cm. Totally submitted in one cassette. D. TERMINAL ILEUM BIOPSY Received in formalin are two pieces of felix, soft tissue aggregating to 0.3 x 0.2 x 0.2 cm. Totally submitted in one cassette. E. CECUM BIOPSY Received in formalin are two pieces of felix, soft tissue aggregating to 0.4 x 0.2 x 0.1 cm. Totally submitted in one cassette. F. COLON RIGHT BIOPSY Received in formalin are two pieces of felix, soft tissue aggregating to 0.3 x 0.2 x 0.1 cm. Totally submitted in one cassette. G. TRANSVERSE COLON BIOPSY Received in formalin is one piece of felix, soft tissue measuring 0.7 x 0.4 x 0.1 cm. Totally submitted in one cassette. H. COLON LEFT BIOPSY Received in formalin are multiple pieces of felix, soft tissue aggregating to 0.4 x 0.3 x 0.2 cm. Totally submitted in one cassette. I. RECTAL BIOPSY Received in formalin are two pieces of felix, soft tissue aggregating to 0.4 x 0.2 x 0.1 cm. Totally submitted in one cassette. JTS November 04, 2022 6:35 PM Gross examination performed at [facility], [address] [place] [address] Clinical History Pre-op diagnosis: Diarrhea, unspecified type [R19.7] Blood in stool [K92.1] Performing Lab Diagnostic interpretation performed at [facility], [address], [place] [id number] [place] [address]# [id number] Land Inspector: Jun Infante M.D. HEPATITIS A ANTIBODY, IGG Result Value Ref Range Hepatitis A IgG Negative Negative VARICELLA ZOSTER IGG Result Value Ref Range Varicella Zoster IgG, Qual Negative (A) Positive HEP C AB IA W/CONF SCRN Result Value Ref Range Hep C Antibody IA Negative Negative HEP B SURF AG SCRN Result Value Ref Range HBsAg Negative Negative HEP B SURF AB Result Value Ref Range Hep B Surface Ab, Qual Negative (A) Positive Hep B Surface Ab Quant <8.00 (L) >=12.00 mIU/mL HEP B CORE AB TOTAL Result Value Ref Range Hepatitis B Core Ab, Total Negative Negative REVIEW OF SYSTEMS: Constitutional: Negative HENT: Negative Eyes: Negative Respiratory: Negative Cardiovascular: Negative Gastrointestinal: As per HPI Endocrine: Negative Genitourinary: Negative Musculoskeletal: Negative Skin: Negative Allergic/Immunologic: Negative Neurological: Seizures (well controlled, last in November 2021) Hematological: Negative Psychiatric/Behavioral: Negative PHYSICAL EXAMINATION BP 139/69 Pulse 91 Temp (!) 35.8 C (96.4 F) Wt 60.3 kg (133 lb) SpO2 98% There is no height or weight on file to calculate BMI. There is no height or weight on file to calculate BSA. Last Wt 11/16/22 : 60.3 kg (133 lb) 11/04/22 : 57.5 kg (126 lb 12.2 oz) 10/26/22 : 60.6 kg (133 lb 11.2 oz) Physical Exam Constitutional: He appears well-developed and well-nourished. He is active. HENT: Nose: No nasal discharge. Mouth/Throat: Mucous membranes are moist. Eyes: Conjunctivae and EOM are normal. Right eye exhibits no discharge. Left eye exhibits no discharge. Neck: Normal range of motion. No adenopathy. Cardiovascular: Normal rate, regular rhythm, S1 normal and S2 normal. Pulmonary/Chest: Effort normal and breath sounds normal. There is normal air entry. No respiratory distress. He exhibits no retraction. Abdominal: Soft. Bowel sounds are normal. He exhibits no distension. There is no tenderness. There is no rebound and no guarding. No HSM. JUAN deferred. Musculoskeletal: Normal range of motion. He exhibits no tenderness and no deformity. Neurological: He is alert. Skin: Skin is warm. Capillary refill takes less than 3 seconds. No rash noted. No jaundice or pallor. IMPRESSION: Bishop is a 17 year old male with newly diagnosed ulcerative colitis with segmental colitis from the rectum to the hepatic flexure and cecal patch around the appendix I had an extensive discussion with Bishop and his mom about IBD and UC. He is currently on high dose steroids with improvement in symptoms (PUCAI 10). We discussed various therapeutic options including5-ASA/mesalamine, biologics, and potential surgery if unable to manage medically. They are hesitantto start a biologic at this time, so will start 5-ASA with plan to escalate therapy if needed. Willcontinue steroids with plan to wean once mesalamine stated; should continue PPI while on steroids. Will schedule MRE. I encouraged to look through the Crohn's and Colitis website and will send them pamphlets. We discussed IBD teen support group; at this time, he is not interested in participating. He should continue vitamin D and iron supplements. We discussed the importance of skin health, including using sunscreen. Will discuss need eye exam; ophthalmology referral placed. He will follow up in 2-3 weeks. PLAN: Patient Instructions - Continue steroids - Continue Prilosec while on steroids - Start mesalamine - Once mesalamine started, can wean steroids by decreasing by 1 tablet every 7 days (8 tablets -> 7 -> 6 -> 5 -> 4 -> 3 -> 2 -> 1 -> off) - Continue vitamin D and iron supplements - Schedule MRE - Schedule ophthalmology exam - Wear sunscreen when outdoors - Can get Hep B and Hep A boosters at primary care office - Make sure completed HPV series - Make sure received flu and Covid vaccines - Visit the Crohn's and Colitis Foundation web site ([email or web address].org/) Orders Placed This Encounter MRI ABD ENTEROG WO/W IVCON Standing Status: Future Standing Expiration Date: 12/16/2023 Order Specific Question: Suspected Diagnosis: Answer: IBD Order Specific Question: Does patient need anesthesia or anxiolysis: Answer: No anesthesia or anxiolysis needed MRI PEL ENTEROG WO/W IVCON Standing Status: Future Standing Expiration Date: 12/16/2023 Order Specific Question: Suspected Diagnosis: Answer: IBD Order Specific Question: Does patient need anesthesia or anxiolysis: Answer: No anesthesia or anxiolysis needed CONSULT TO OPHTHALMOLOGY Standing Status: Future Standing Expiration Date: 11/16/2023 Scheduling Instructions: To schedule at any of the following [facility] Eye locations please call [phone]. MAIN CAMPUS (Same Day Appointments Available) EAST REGION: [facility] Ghada Leal [facility] REGION: [facility] Herminio Romano ([place] [employer]) [facility] Order Specific Question: Is this for a Routine or Diabetic Exam? Answer: No Order Specific Question: Does consulting provider have [facility] Epic access? Answer: Yes iv contrast (will be provided with radiology test) Sig: MRI Enterography Inject, intravenously, once for 1 dose. No IV access, insert saline lock prior to the beginning of sedation, infusion, injection of imaging exam. Discontinue saline lock post exam. If Pt. has a central line or IVAD, may access for administration according to line specific nursing protocol. Once exam is complete flush line and de-access according to line specific nursing protocol in the MR contrast administration guidelines link. Dispense: 1 Each Refill: 0 enteric contrast (will be provided with radiology test) Sig: For MRI ENTEROGRAPHY WO/W Administer, As Directed One Time Only, via Oral, Rectal, both Oral and Rectal, Enteric Tube, Stoma or Indwelling Catheter, Enteric Contrast as designated per enteric contrast guidelines Dispense: 1 Each Refill: 0 glucagon (GLUCAGEN) 1 mg/mL injection Sig: Inject 1 mg intravenously one time only for 1 dose. For MRI Enterography, Inject 1 mg intravenously, as directed. Slow push at the appropriate time during MRI Scan Dispense: 1 Each Refill: 0 DISCONTD: Mesalamine (LIALDA) 1.2 gram EC tablet Sig: Take 2 tablets by mouth daily with breakfast. Dispense: 60 tablet Refill: 3 Mesalamine (LIALDA) 1.2 gram EC tablet Sig: Take 4 tablets by mouth daily with breakfast. Dispense: 60 tablet Refill: 1 Plan of care reviewed with patient / parent / undercollar baster, who verbalized understanding? Yes I spent 70 minutes in the visit, with more than 50% of the total [id number] time of the visit in counseling / coordination of care. It was a pleasure to see your patient today. Thank you for allowing me to participate in the care of your patient. Please do not hesitate to contact me with any questions; I will be happy to discuss with you the plan of care. Sincerely, Williams Francis MD Pediatric Gastroenterology [facility] documented in this encounter[facility] Miscellaneous Notes* Telephone Encounter - Williams Francis MD - 10/27/2022 2:47 PM EST Should continue seizure medications as prescribed. Should stop Imodium as this will counteract the clean-out. May continue Pepcid. documented in this encounter[facility] Instructions* Patient Instructions* Williams Francis MD - 10/26/2022 9:25 AM EST - Blood work today - Submit stool samples - Schedule endoscopy UPPER ENDOSCOPY AND COLONOSCOPY PREP INSTRUCTIONS ---Few days prior to the procedure curing pickling packer medications at the drugstore for your colonoscopy as advised ---Day before the procedure, nothing solid to eat, only clear fluids and the more the better PREP: Day prior to the colonoscopy Throughout the day, it is extremely important to drink lots of fluids till bedtime. This will aid with cleaning out the bowel and to keep you hydrated. Goal is about 8-16 oz of fluid (see list below)every hour. We expect that the stool will not only be watery at the end of the cleanout but when visualized, almost colorless without any solid material. Day before the procedure: Only drink clear liquids, All of the following that are not colored RED Clear liquids include: -Strained fruit juices without pulp (apple, grape, lemonade) -Water -Clear broth or boullion -Coffee or tea (without cream or creamers) -7-UP or Gingerale -Gatorade -Carbonated and non-carbonated soft drinks -Nils-Aid -Flavored Jell-O -Popsicles Day before procedure please take the prep for your procedure as follows: >50 kg Noon: 2 tabs (10 mg) Dulcolax 2PM: Liquid portion: Mix Miralax Prep Fluid = 14 caps of Miralax (238 g=1 bottle) dissolved in 64 ounces Fluid can be any liquid that is not red (Gatorade, lemonade, water) Drink 8 oz of fluid every 15 minutes until all gone (will usually take 2-3 hours, max) NOTHING BY MOUTH 3 HOURS PRIOR TO YOUR SCHEDULED PROCEDURE documented in this encounterAkron [facility] History of Present illness Narrative* Williams Francis MD - 10/26/2022 8:33 AM EST Images from the original note were not included. PEDIATRIC GASTROENTEROLOGY, HEPATOLOGY, & NUTRITION [address] [facility] [place] [address] Williams Francis MD SOURCE OF INFORMATION Primary Care Provider: Luis Norwood DO History obtained from: Self and Mother HISTORY OF PRESENT ILLNESS: Bishop Srinivasan is a 17 year old man who presents as a new patient. Consultation requested by Dr. Luis Norwood for an opinion regarding diarrhea and bloody stools. My final recommendations will be communicated back to the requesting physician by way of shared medical record or letter to requesting physician via US mail. Relevant provider notes, imaging and lab work reviewed, notable for weight gain around 25th percentile, reassuring CBC, low-normal albumin (3.5), otherwise reassuring CMP, normal CT abdomen. Sine right before 2021 he started to have loose stools 1-2 times a day, pieces mixed withwater, and would see blood on the toilet paper every time he wiped. He was started on Pepcid without improvement. By around New Years he continued to have loose stools, pieces mixed with blood, afterwhich there would be a few drops of bright red blood in the toilet bowel. BMs currently are 2-3 times a day with blood in the toilet bowl. He has also started to have intermittent belly pain all over, worse for about 30 seconds after having a BM. He has difficulty falling asleep due to pain, but has not woken up at night needing to go to the bathroom. He has started to take Imodium to prevent symp toms while in school. Prior to 2021 , stools were 3-4 times a week, like thick logs. He would need to strain a little, but otherwise not much difficulty. Denies seeing blood. He otherwise has a good appetite and is eating well. Denies difficulty swallowing or like like foodgets stuck. Denies nausea and vomiting. Denies weight loss, fever, headache, vision changes, eye pain, mouth sores, joint pain, rashes. He has had intermittent muscles spasms. PMH: epilepsy PSH: none FH: Mom with UC, PGM with IBD (unsure which), maternal great aunt with UC, otherwise negative for celiac disease, liver disease, autoimmune disease SH: parents , lives with mom and step-dad, will occasionally see dad, has 2 paternal half brother; in 12th grade ALLERGIES Allergen Reactions Sunscreen Rash, Itching Equate brand ACTIVE PROBLEM LIST Childhood Absence Epilepsy, 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/06/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, Intractable, With Status Epilepticus (Hcc) - 11/03/2015 Well Child Check - 10/25/2014 Partial Epilepsy With Impairment of Consciousness (Hcc) - 06/11/2008 PAST MEDICAL HISTORY Diagnosis Date Early onset of delivery, delivered, with or without mention of antepartum condition 29 weeks gestation, Hospitalized 9 weeks in NICU [facility] Esophageal reflux Febrile seizure (HCC) Generalized seizure disorder (HCC) Hydrocele Hyposmolality and/or hyponatremia Respiratory distress syndrome in Seizures (HCC) febrile--see Neuro workup Unspecified and jaundice PAST SURGICAL HISTORY Procedure Laterality Date CIRCUMCISION PHOTOTHERAPY Social History Tobacco Use Smoking status: Never Passive exposure: Yes Smokeless tobacco: Never Tobacco comments: mother smokes outside Vaping Use Vaping Use: Never used Substance Use Topics Alcohol use: Never Drug use: Never FAMILY HISTORY Problem Relation Age of Onset None Father None Paternal Grandfather other (Ulcerative Colitiis) Paternal Grandmother other (GERD) Paternal Grandmother other (Ulcerative Colitis`) Mother other (ulcerative colitis) Maternal Grandmother great GM None Maternal Grandfather Current Outpatient Medications Medication Sig Dispense Refill ethosuximide (ZARONTIN) 250 mg capsule Take 750 mg in the morning and 500 mg in the evening daily 150 capsule 5 No current facility-administered medications for this visit. LABS: Results for orders placed or performed in visit on 08/16/22 ETHOSUXIMID/ZARONTIN Result Value Ref Range Ethosuximide 63 40 - 100 ug/mL CBC + DIFF Result Value Ref Range WBC 8.48 3.70 - 11.00 k/uL RBC 5.00 4.20 - 6.00 m/uL Hemoglobin 15.0 13.0 - 17.0 g/dL Hematocrit 44.8 39.0 - 51.0 % MCV 89.6 80.0 - 100.0 fL MCH 30.0 26.0 - 34.0 pg MCHC 33.5 30.5 - 36.0 g/dL RDW-CV 12.4 11.5 - 15.0 % Platelet Count 248 150 - 400 k/uL MPV 10.7 9.0 - 12.7 fL Neut% 66.0 % Abs Neut 5.60 1.45 - 7.50 k/uL Lymph% 17.2 % Abs Lymph 1.46 1.00 - 4.00 k/uL Chaves% 12.9 % Abs Chaves 1.09 (H) <0.87 k/uL Eosin% 3.1 % Abs Eosin 0.26 <0.46 k/uL Baso% 0.6 % Abs Baso 0.05 <0.11 k/uL Immature Gran % 0.2 % Abs Immature Gran <0.03 <0.04 k/uL NRBC 0.0 /100 WBC Absolute nRBC <0.01 <0.01 k/uL Diff Type Auto COMP METABOLIC PANEL Result Value Ref Range Protein, Total 8.0 6.4 - 8.3 g/dL Albumin 5.1 (H) 3.2 - 4.5 g/dL Calcium, Total 9.5 8.4 - 10.2 mg/dL Bilirubin, Total 0.2 0.2 - 1.3 mg/dL Alkaline Phosphatase 49 (L) 55 - 149 U/L AST 18 14 - 40 U/L ALT 11 10 - 54 U/L Glucose 89 74 - 99 mg/dL BUN 17 5 - 18 mg/dL Creatinine 1.00 0.73 - 1.22 mg/dL Sodium 139 136 - 144 mmol/L Potassium 4.3 3.7 - 5.1 mmol/L Chloride 102 97 - 105 mmol/L CO2 25 22 - 30 mmol/L Anion Gap 12 9 - 18 mmol/L Estimated Glomerular Filtration Rate REVIEW OF SYSTEMS: Constitutional: Negative HENT: Negative Eyes: Negative Respiratory: Negative Cardiovascular: Negative Gastrointestinal: As per HPI Endocrine: Negative Genitourinary: Negative Musculoskeletal: Negative Skin: Negative Allergic/Immunologic: Negative Neurological: Seizures (well controlled, last in November 2021) Hematological: Negative Psychiatric/Behavioral: Negative PHYSICAL EXAMINATION BP 117/75 Pulse 83 Temp 36 C (96.8 F) Ht 173 cm (5' 8.11) Wt 60.6 kg (133 lb 11.2 oz) SpO2 99% BMI 20.26 kg/m Body mass index is 20.26 kg/m . Body surface area is 1.71 meters squared. Last Wt 10/26/22 : 60.6 kg (133 lb 11.2 oz) 09/16/22 : 60.3 kg (133 lb) 07/05/22 : 58 kg (127 lb 14.4 oz) Physical Exam Constitutional: He appears well-developed and well-nourished. He is active. HENT: Nose: No nasal discharge. Mouth/Throat: Mucous membranes are moist. Eyes: Conjunctivae and EOM are normal. Right eye exhibits no discharge. Left eye exhibits no discharge. Neck: Normal range of motion. No adenopathy. Cardiovascular: Normal rate, regular rhythm, S1 normal and S2 normal. Pulmonary/Chest: Effort normal and breath sounds normal. There is normal air entry. No respiratory distress. He exhibits no retraction. Abdominal: Soft. Bowel sounds are normal. He exhibits no distension. There is no tenderness. There is no rebound and no guarding. No HSM. Normal anal placement with surrounding hair. Skin tag on the ventral aspect of the anus. No apparent fissures. Good tone. No stool in vault. No stool or blood onglove. Musculoskeletal: Normal range of motion. He exhibits no tenderness and no deformity. Neurological: He is alert. Skin: Skin is warm. Capillary refill takes less than 3 seconds. No rash noted. No jaundice or pallor. IMPRESSION: Bishop is a 17 year old male with diarrhea and hematochezia. I had an extensive discussion with Bishop and his mom about the potential causes of his symptoms. There is significant family history for IBD and his symptoms are concerning for IBD. Other etiologies include infection, polyp, and fissure (not seen on exam and would not explain diarrhea). Will start with screening lab work, including inflammatory markers, and stools studies. Will also proceed with EGD/colonoscopy to further evaluate; consent form signed. Further management to be determined based on evaluation. He will follow up following EGD/colonoscopy. PLAN: Patient Instructions - Blood work today - Submit stool samples - Schedule endoscopy UPPER ENDOSCOPY AND COLONOSCOPY PREP INSTRUCTIONS ---Few days prior to the procedure curing pickling packer medications at the drugstore for your colonoscopy as advised ---Day before the procedure, nothing solid to eat, only clear fluids and the more the better PREP: Day prior to the colonoscopy Throughout the day, it is extremely important to drink lots of fluids till bedtime. This will aid with cleaning out the bowel and to keep you hydrated. Goal is about 8-16 oz of fluid (see list below)every hour. We expect that the stool will not only be watery at the end of the cleanout but when visualized, almost colorless without any solid material. Day before the procedure: Only drink clear liquids, All of the following that are not colored RED Clear liquids include: -Strained fruit juices without pulp (apple, grape, lemonade) -Water -Clear broth or boullion -Coffee or tea (without cream or creamers) -7-UP or Gingerale -Gatorade -Carbonated and non-carbonated soft drinks -Nils-Aid -Flavored Jell-O -Popsicles Day before procedure please take the prep for your procedure as follows: >50 kg Noon: 2 tabs (10 mg) Dulcolax 2PM: Liquid portion: Mix Miralax Prep Fluid = 14 caps of Miralax (238 g=1 bottle) dissolved in 64 ounces Fluid can be any liquid that is not red (Gatorade, lemonade, water) Drink 8 oz of fluid every 15 minutes until all gone (will usually take 2-3 hours, max) NOTHING BY MOUTH 3 HOURS PRIOR TO YOUR SCHEDULED PROCEDURE Orders Placed This Encounter CBC with Differential Standing Status: Future Number of Occurrences: 1 Standing Expiration Date: 12/26/2022 Basic Metabolic Panel Standing Status: Future Number of Occurrences: 1 Standing Expiration Date: 12/26/2022 Hepatic Function Panel Standing Status: Future Number of Occurrences: 1 Standing Expiration Date: 12/26/2022 GGT Standing Status: Future Number of Occurrences: 1 Standing Expiration Date: 12/26/2022 CRP Standing Status: Future Number of Occurrences: 1 Standing Expiration Date: 12/26/2022 ESR Standing Status: Future Number of Occurrences: 1 Standing Expiration Date: 12/26/2022 Ferritin, Blood Standing Status: Future Number of Occurrences: 1 Standing Expiration Date: 10/26/2023 Scheduling Instructions: In preparation for this test, do not take multivitamins or dietary supplements containing biotin (vitamin B7) for at least 12 hours. Biotin is commonly found in hair, skin, and nail supplements and multivitamins. Tell your doctor if you take supplements containing biotin as part of your medication history. Iron and TIBC, Blood Standing Status: Future Number of Occurrences: 1 Standing Expiration Date: 10/26/2023 Vitamin D-25 Standing Status: Future Number of Occurrences: 1 Standing Expiration Date: 12/26/2022 Calprotectin Standing Status: Future Number of Occurrences: 1 Standing Expiration Date: 12/26/2022 C. diff Standing Status: Future Number of Occurrences: 1 Standing Expiration Date: 12/26/2022 ENTERIC BACTERIAL PANEL BY PCR SURGICAL REQUEST - ELECTIVE (04/2020): EGD WITH BIOPSY PEDIATRIC, COLONOSCOPY FLEXIBLE W/ BIOPSY PEDIATRIC Order Specific Question: Scheduled Insurance Class Answer: Outpatient Order Specific Question: Extended Stay Answer: No Order Specific Question: Case Classification Answer: Elective [10] Order Specific Question: Tiered Prioritization Answer: Tier 1 - Semi-Urgent (1 - 2 week delay) Order Specific Question: Requestor Contact Info(name/pager) Answer: Dr. Francis [phone] Plan of care reviewed with patient / parent / undercollar baster, who verbalized understanding? Yes I spent 80 minutes in the visit, with more than 50% of the total [id number]-bj-[id number] time of the visit in counseling / coordination of care. It was a pleasure to see your patient today. Thank you for allowing me to participate in the care of your patient. Please do not hesitate to contact me with any questions; I will be happy to discuss with you the plan of care. Sincerely, Williams Francis MD Pediatric Gastroenterology [facility] documented in this encounterAkron [facility]01-30-2023 Miscellaneous Notes* Telephone Encounter - Renee Leal RN - 10/25/2022 4:50 PM EST Patient's mother called and notified that referral placed for gastroenterology. Mother transferred to schedule appointment. Renee Leal RN * Telephone Encounter - Luis Norwood DO - 10/25/2022 4:38 PM EST Referral placed, please schedule appt Luis Norwood DO * Telephone Encounter - Renee Leal RN - 10/25/2022 4:27 PM EST Patient's mother calls and states that patient was seen [facility] ER and was given a referral to gastroenterology. Credit Collections Rep at [facility] does not see [address] Adams is not taking any new patient for 2 months. Mother asking if referral can be placed for Gastroenterology so that patient can be seen within [facility]. Mother realizes that patient may have to travel but thinks patient needs seen sooner than 2 months. ER Doctor thinks it may be IBS or Colitis. Please review and advise, Renee Leal RN documented in this encounterAkron [facility]-27-2023 Miscellaneous Notes* Telephone Encounter - Shonda Saha RN - 10/22/2022 10:32 AM EST -Called Mrs. Srinivasan. Advised her per Dr. De Los Santos. -She verbalized understanding and agrees with plan. Shonda Saha RN * Telephone Encounter - Ravinder De Los Santos MD - 10/22/2022 10:23 AM EST Bloody diarrhea does not seem to be Zarontin related. Zarontin side effects are abdominal pain, nausea/vomiting. Should be seen by PCP. Also I prefer he take Pepcid 20 mg bid x 3 weeks, then 20 mg HS x 3 weeks then stop. If symptoms are not better by next week, will change to a different AED. Ravinder De Los Santos MD * Telephone Encounter - Shonda Saha RN - 10/22/2022 10:12 AM EST Routed to Dr. De Los Santos for review Shonda Saha RN documented in this encounterAkron [facility]01-20-2023 Miscellaneous Notes* Telephone Encounter - Ravinder De Los Santos MD - 10/15/2022 5:28 PM EST Pepcid 20 mg po bid x 3 weeks, then 20 mg HS x 3 weeks then stop. I called mother to let her know. Ravinder De Los Santos MD * Telephone Encounter - Shonda Saha RN - 10/15/2022 4:37 PM EST Neuro Peds Epilepsy Care Coordination Post-seizure/Medication Concerns/Side Effects Date of service : October 15, 2022 Bishop Srinivasan is a 17 year old. Last seen by Dr. De Los Santos in distance health visit on 10/04/2022. Current weight:60.3 kg Current AEDs (mg/kg/d)~Recent drug levels: Ethosuximide 750 mg - [address] De Los Santos in clinical note on 10/04/2022: Continue Ethosuximide 750 mg - 500 mg. It should be taken after food Check blood levels at the end of October/November prior to seeing me for virtual visit in 3 months EEG followed and office visit this Summer - will discuss driving at that time Sleep hygiene measures Patient update: - Spoke to mom who reports since the virtual visit Bishop has been taking medicine with food and the stomach pain/cramping has not gotten any better. He actually missed a few days of school this week due to pains. - Mom wanted to start the Pepcid. Routed to Dr. De Los Santos for review and recommendations. Shonda Saha RN * Telephone Encounter - Zoila STARR - 10/15/2022 2:48 PM EST General call : Full name of person calling: DAVID Duncan Relationship to patient: mom Phone # : [phone] Reason for call: mom states ethosuximide meds is upsetting his stomach, filiberto said he can take Pepsid? Patient of Dr. de los santos documented in this encounter[facility] Miscellaneous Notes* Telephone Encounter - Shonda Saha RN - 09/23/2022 10:42 AM EST Plan per Dr. De Los Santos in staff message 09/21/2022: Shonda can you please find out the current dose he is taking and consider lowering by one capsule(250 mg) per day. - Spoke to mom. Bishop is taking ESM 750 mg in AM and 500 mg in PM. Mom says Bishop is doing fine. The loose stools seem to have subsided. She said it may have been something he ate. - Mother would like to keep the medicine dose the same for now. Routed to Dr. De Los Santos as NIA Saha, RN documented in this encounterAkron [facility]12-22-2022 Instructions* Patient Instructions* Sarina Sosa APRN.CNP - 09/16/2022 3:27 PM EST Continue to take all medication as prescribed. Red flag symptoms go to ER. Office willl reach out to Neurologist due to symptoms and medication. Keep scheduled appointment with Neurologist. Follow up as needed as instructed per neurologist. documented in this encounterAkron [facility]12-22-2022 History of Present illness Narrative* Sarina Sosa APRN.CNP - 09/16/2022 3:00 PM EST This is a 17 year old male who presents today with: Patient presents with: Acute Visit: diarrhea and them blood afterwards when wiping HISTORY OF PRESENT ILLNESS: Bishop Srinivasan is a 17 year old male. Patient presents with: Acute Visit: diarrhea and them blood afterwards when wiping Dr. Norwood patient here in the office for diarrhea and blood in the stool. BM's have been softer but normal freuency. No Constipation, family history of IBS. No abdomoinal pain, urinary symptoms, fever/chills has noted small amount of blood with wiping after BM's. History of epilepsy, following with pediatric neurology Dr. Preston. Refer that Zarontin was increased about 2 weeks ago. Currently taking 750 mg in the morning and 500 mg in the evening. Next follow-up is October 04. PAST MEDICAL HISTORY: PAST MEDICAL HISTORY Diagnosis Date Early onset of delivery, delivered, with or without mention of antepartum condition 29 weeks gestation, Hospitalized 9 weeks in NICU [facility] Esophageal reflux Febrile seizure (HCC) Generalized seizure disorder (HCC) Hydrocele Hyposmolality and/or hyponatremia Respiratory distress syndrome in Seizures (HCC) febrile--see Neuro workup Unspecified and jaundice PAST SURGICAL HISTORY Procedure Laterality Date CIRCUMCISION PHOTOTHERAPY ALLERGIES Sunscreen MEDICATIONS Current Outpatient Medications Medication Sig ethosuximide (ZARONTIN) 250 mg capsule Take 750 mg in the morning and 500 mg in the evening daily No current facility-administered medications for this visit. FAMILY HISTORY Problem Relation Age of Onset None Father None Paternal Grandfather other (Ulcerative Colitiis) Paternal Grandmother other (GERD) Paternal Grandmother other (Ulcerative Colitis`) Mother other (ulcerative colitis) Maternal Grandmother great GM None Maternal Grandfather Social History Tobacco Use Smoking status: Passive Smoke Exposure - Never Smoker Smokeless tobacco: Never Tobacco comments: mother smokes outside REVIEW OF SYSTEMS GENERAL: No weight loss, malaise or fevers/chills HEENT: Negative for frequent or significant headaches, No changes in hearing or vision. NECK: Negative for lumps, goiter, pain and significant neck swelling RESPIRATORY: Negative for cough, hemoptysis, wheezing, dyspnea or shortness of breath CARDIOVASCULAR: Negative for chest pain, leg swelling, orthopnea, or palpitations GI: + diarrhea and blood in stool : No history of dysuria, frequency or incontinence MUSCULOSKELETAL: Negative for joint pain or swelling. SKIN: Negative for lesions, rash, and itching ENDOCRINE: Negative for cold or heat intolerance, polyuria, polydipsia and goiter NEURO: No history of headaches, syncope, paralysis, seizures or tremors MOOD: Negative for depression, anxiety, or suicidal ideation. EXAM: BP 110/74 Pulse 89 Resp 16 Wt 60.3 kg (133 lb) SpO2 97% PHYSICAL EXAM: General Appearance: Well appearing, alert, in no acute distress, well-hydrated, well nourished. Skin: Skin color, texture, turgor normal, no suspicious rashes or lesions. Head: Normocephalic, no masses, lesions, tenderness or abnormalities. Eyes: Anicteric sclera. Extraocular movements are intact. Lungs: Lungs clear to auscultation. No wheezing, rhonchi, rales. Heart: RRR without murmur, gallop, or rubs. No ectopy. Abdomen: Normal abdominal exam, Abdomen soft, non-tender. Bowel sounds normal. No masses, organomegaly. Peripheral Pulses: Normal, Capillary refill <2secs, strong peripheral pulses, Pulses palpable. Neurologic: Gait normal. Reflexes normal and symmetric. Sensation grossly intact. ASSESSMENT/PLAN: 1. Diarrhea, unspecified type - ICD9: 787.91, ICD10: R19.7 (primary diagnosis) - Symptoms more than likely related to mg increase in epilepsy medication. - Medication side effect includes diarrhea. - After discussion with patient and mother, denied wanting any further work-up at this time. - Office will contact neurologist. - Exam within normal limits. 2. Blood in stool - ICD9: 578.1, ICD10: K92.1 - Blood with wiping after BM related to excess liquid stools. - Red flag symptoms given to patient and mother, they both verbalized understanding when to seek emergency care. - Any worsening symptoms to contact the office. Follow-up as needed or sooner if symptoms get worse or do not improve Discussed treatment plan and patient voices understanding. Patient's questions answered appropriately. Medications and potential side effects were discussed and patient voices understanding. Sarina Sosa APRN.BRANDON This note was partially generated using [employer] voice recognition system. Note was reviewed for accuracy. There may be minor misspellings or grammar miscues with [employer] voice recognition. documented in this encounterAkron [facility]12-08-2022 Miscellaneous Notes* Telephone Encounter - Shonda Saha RN - 09/02/2022 2:23 PM EST -Called Mrs. Srinivasan. Advised her per Dr. De Los Santos. -She verbalized understanding and agrees with plan. Shonda Saha RN * Telephone Encounter - Steffanie Bernabe - 09/02/2022 2:07 PM EST Mother returned call. Please call back [phone]. * Telephone Encounter - Shonda Saha RN - 09/01/2022 4:11 PM EST -Called Ms. Duncan. Did not receive an answer. Will await call-back. Shonda Saha RN * Telephone Encounter - Ravinder De Los Santos MD - 09/01/2022 8:28 AM EST Recommend increasing Ethosuximide by one additional capsule in the morning [750 mg in AM and 500 mgin PM]. Recheck ESM level after 1 month with clinical update at that time. The following approved medication requests have been transmitted electronically. Requested Prescriptions Signed Prescriptions Disp Refills ethosuximide (ZARONTIN) 250 mg capsule 150 capsule 5 Sig: Take 750 mg in the morning and 500 mg in the evening daily Ravinder De Los Santos MD * Telephone Encounter - Shonda Saha RN - 08/27/2022 4:47 PM EST Routed to Dr. De Los Santos for review Shonda Saha RN documented in this encounterAk[facility]10-14-2022 Miscellaneous Notes* Telephone Encounter - Sarah Stevens RN - 07/09/2022 11:30 AM EDT Spoke with Ms. Duncan and advised per Dr. Luna. She verbalized understanding and agrees. She states so far this morning, seizure frequency is less and he is able to function without seizures affecting him. She will watch closely and if they became as frequent as last evening when she could not even havea conversation with him, she will call office back to discuss admission to PMU. Routed to Dr. Luna as FYI only. Sarah Stevens RN * Telephone Encounter - Joseph Vega MD - 07/09/2022 11:21 AM EDT Ethosuximide (Zarontin) needs slow titration and will take time to calm the seizures. He has had positive response to this in the past and there is no reason to think that med is worsening it. Fastertitration more likely to cause side effects. If still happening every few min and affecting his activity, we could admit him in PMU and considerinitiation of Depakote - can be built rapidly. Joseph Luna MD * Telephone Encounter - Sarah Stevens RN - 07/09/2022 10:25 AM EDT Neuro Peds Epilepsy Care Coordination Post-seizure/Medication Concerns/Side Effects Date of service : July 09, 2022 Bishop Srinivasan is a 17 year old. Last seen by Dr. De Los Santos in office visit on 07/05/22. Now~Ms. Duncan reports an increase in absence seizures since last evening. ESM was started on 07/07. His seizures were barely noticeable prior to starting the medication and now she is seeing one everycouple of minutes since last evening. He has a headache, and hasn't slept well since starting med. Mom understands that he may continue to have seizures while advancing medication, but she was concerned about the increase in seizure activity. *Mom also wanted it noted that yesterday, while at school, Bishop reported his hands felt tingly and when he rubbed them together, the skin on his palms peeled off. No other signs of rash noted anywhere, and this only happened once.* Current weight : 49 kg Current AEDs ( mg/kg/d) / recent drug level: Ethosuximide 250 mg - 250 mg - to increase to 500 mg BID Recent changes/side effects: ESM started on 07/07, pm dose Increase in absence seizures since 07/08 in pm Headache and difficulty sleeping Mom denies any illness Main concern: Ms. Duncan calls concerned about increase in absence seizures since last night Routed to Dr. Luna in Dr. De Los Santos's absence Sarah Stevens RN * Telephone Encounter - Hanna Bennett - 07/09/2022 9:50 AM EDT Medication Concern Person Calling DAVID Duncan - jamie Name of medication Ethosuximide Concern with medication Patient just started it. He is on day 2 or 3. His absence seizures are morefrequently. His skin on his peeled off. They are fine now. He has headaches. He has sadness. He overall doesn't feel well. He feels like he may have a seizure. Patient of Dr. De Los Santos documented in this encounterAk[facility]10-10-2022 Instructions* Patient Instructions* Ravinder De Los Santos MD - 07/05/2022 2:29 PM EDT Start Ethosuximide Week AM PM 1 1 1 2 2 1 3 on 2 2 Check labwork in about 6 weeks with Mychart update SEIZURE & GENERAL PRECAUTIONS The patient should not climb to high places, such as climbing on the roof, trees or mountain climbing where a seizure may result in a serious fall and injury. When in or near water, the patient should be supervised by a responsible adult, for example, duringtub baths, swimming, boating or fishing. Sleeping face down in a prone position (on the stomach) should be avoided. Do not discontinue seizure medication on your own as this may lead to a severe seizure. Please contact the office for refills 2 weeks before your medication refill expires. Driving is not recommended unless the patient has been seizure free. You should first check with your neurologist as well as State driving laws before taking up driving. FIRST-AID MEASURES FOR GRAND MAL SEIZURES If the patient has a grand mal seizure: Do not panic, call for assistance if needed. Lower patient to the ground and loosen any tight clothing. Place patient in a semi-prone position so any saliva or vomitus will easily drain out of the mouth.Do not force any object or your fingers into the mouth. You may suffer an injury or break teeth. Do not panic; time the seizure so you know how long it lasted (most grand mal seizures are no more than 1 or 2 minutes long). If the seizure is continuing longer than 3 minutes, call the ambulance for transportation to the nearest Emergency Room. Call your doctor if you feel that the severity or number of seizures has changed from baseline. After a grand mal seizure, patients are very sleepy and tired for several minutes or even a couple of hours. They may also complain of headache, nausea and may vomit. If the patient has several grand mal seizures without waking up in-between, please notify your doctor. [facility] [employer] [facility] [facility]: [email or web address] documented in this encounterAkron [facility]10-10-2022 History of Present illness Narrative* Ravinder De Los Santos MD - 07/05/2022 1:31 PM EDT Images from the original note were not included. [facility] Pediatric Epilepsy Date of Service: 07/05/2022 EPILEPSY CENTER - INITIAL VISIT The patient was accompanied during the visit by the: mother REASON(S) FOR VISIT: Seizure recurrence CONCERNS AND GOALS OF THE FAMILY / PATIENT: Diagnosis and management HISTORY OF PRESENTING ILLNESS - at initial visit on 07/05/2022 Handedness: right-handed Age at onset of symptoms / seizures: 10 years Bishop is a 17-year-old right-handed young man, initially seen [place] [address] Feliciano Hines for febrile seizures between the ages of 3-5 years which manifested as bilateral convulsive activity. He had about 3 such seizures and stopped by 5 years of age. Around 10 yrs of age, he began having brief episodes of staring which were described as awareness of his his jaw moving up and down, followed by staring blankly, confusion and unresponsiveness, lasting around 30 seconds, occurring 1- 4 times/day. He was seen by Dr. Lupillo Sun in September 2015, then admitted for 24-hour VEEG monitoring which showed he was having typical absence seizures. Ethosuximide was started after which he became seizure free. Dr. Porras last saw him in August 2016. He came off Ethosuximide after a couple of years (unclear how it was decided), then remained seizure free until this year. In November this year, after a night of poor sleep, Mom reports that he came out of the shower with his towel on but still wet, agitated, shivering, staring and walking in circles but not fully responsive for a couple of minutes. There were no eye blinking/rolling, oroalimentary or manual automatisms seen. Afterwards was tired and went to sleep.This was attributed to lack of sleep and breaking up with his girlfriend. On May 29, he had a second similar episode, again after lack of sleep. Mom heard a vocalization and found him standing in his bedroom, was staring and not resonding. He said Mommy once was repetitively moving his right arm. He recovered slowly after a couple of minutes and felt better after taking a nap for few hours. A third episode occurred a couple of weeks later described as losing muscle strength in his face and jaw and feeling weird. This feeling also preceded the previous 2 episodes. SEIZURE / EPISODE TYPE(S) - at initial visit on 07/05/2022 ASSOCIATED CONDITIONS, DEVELOPMENTAL HISTORY, AND SCHOOL Early developmental milestones appear to have been normal. Currently a senior in high school and gets good grades Risk Factors: Autism Unanswered Brain Tumor Unanswered JUDGE Infections Unanswered Developmental Delay Unanswered Family history of seizures Unanswered Febrile Seizure Unanswered Learning difficulty Unanswered Complications Yes Stroke Unanswered Traumatic Brain Injury Unanswered PATIENT-ENTERED DATA: No Data Recorded No flowsheet data found. PREVIOUS EPILEPSY EVALUATIONS: VEEG monitoring November 03-2015: Interictal: 3 Hz Eric Wave Complex, Generalized, Maximum Left Hemisphere Ictal: EEG seizure, Generalized, Maximum Left Hemisphere Clinical seizure: Typical Dialeptic Seizure. Multiple seizures lasting 5-11 seconds were recorded consisting of behavioral or speech arrest which immediately resumes after EEG changes. cease. During some he has rhythmic jaw twitching, and in 2 seizures he notes that he felt this at the end and signifies this to his mother. Multi-hour EEG January 06, 2016: Intermittent Slow, Lateralized left hemisphere, maximum temporal MRI 06/25/2008: Normal MRI Brain 11/03/2015: Normal ANTISEIZURE THERAPIES CURRENT ANTISEIZURE THERAPIES None at present time. ANTISEIZURE MEDICATION LEVELS (LAST 3) Antiseizure Med Levels Latest Ref Rng & Units 01/04/2018 09/21/2016 05/17/2016 ETHOSUXIMIDE 40 - 100 ug/mL <10(L) 44 46 PRIOR/CURRENT ANTISEIZURE THERAPIES Ethosuximide Current Outpatient Medications Medication Sig ethosuximide (ZARONTIN) 250 mg capsule Take 2 capsules by mouth twice daily. No current facility-administered medications for this visit. ALLERGIES Allergen Reactions Sunscreen Rash, Itching Equate brand History Information Length: 36 cm (1' 2.17) Weight: 1.158 kg (2 lb 8.9 oz) Head Circ: 26.5 cm (10.43) Discharge Weight: 2.975 kg (6 lb 8.9 oz) Gestational Age: 29 weeks Delivery Method: VAGINAL Feeding Method: Breast Fed Comments Was hospitalized 9 weeks in NICU at [facility] - respiratory distress syndrome - hyposmolality and/or hyponatremia - jaundice - hydrocele PAST MEDICAL HISTORY Diagnosis Date Early onset of delivery, delivered, with or without mention of antepartum condition 29 weeks gestation, Hospitalized 9 weeks in NICU [facility] Esophageal reflux Generalized seizure disorder (HCC) Hydrocele Hyposmolality and/or hyponatremia Respiratory distress syndrome in Seizures (HCC) febrile--see Neuro workup Unspecified and jaundice PAST SURGICAL HISTORY Procedure Laterality Date CIRCUMCISION PHOTOTHERAPY FAMILY HISTORY Problem Relation Age of Onset None Father None Paternal Grandfather other (Ulcerative Colitiis) Paternal Grandmother other (GERD) Paternal Grandmother other (Ulcerative Colitis`) Mother other (ulcerative colitis) Maternal Grandmother great GM None Maternal Grandfather SOCIAL HISTORY Mom 41 yrs, has ulcerative colitis, anxiety, hpertension, eczema Dad 47 yrs Parents are Has 2 half-brothers (not related). No family history of seizures REVIEW OF SYSTEMS - at initial visit on 07/05/2022 GENERAL: No weight loss, or fevers. 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 CARDIOVASCULAR: Negative for heart murmur, known heart disease. GI: Negative for constipation : Negative MUSCULOSKELETAL: Negative for joint pain or swelling. SKIN: Negative for lesions, rash, and itching. HEMATOLOGY/LYMPHOLOGY: Negative for prolonged bleeding, bruising easily or swollen nodes. ENDOCRINE: Negative for known endocrine problems NEURO: See HPI All other reviewed and negative other than HPI. Objective PHYSICAL EXAMINATION - at initial visit on 07/05/2022 BP 116/57 Pulse 75 Temp 36.6 C (97.8 F) Ht 173 cm (5' 8.11) Wt 58 kg (127 lb 14.4 oz) SpO2 100% BMI 19.38 kg/m No dysmorphic features or neurocutaneous stigmata NEUROLOGICAL EXAMINATION: Mental status: Appropriate behavior and interaction for age Cranial nerves: Extraocular movements appear intact and no nystagmus noted. Face is symmetrical with no features of 7th nerve palsy, Hearing grossly intact bilaterally, Tongue protrudes in the midline with normal movements. Fundus exam Normal Motor: Normal bulk and tone in all extremities, Motor strength appear normal upper and lower extremities. Knee jerks are normal and symmetrical. Cerebellar: No dysmetria on finger to nose or object approach, No tremors Gait: Normal for age, and able to do age appropriate tandem walk. Classification Summary IMPRESSION Bishop is a 17-year-old right-handed young man with prior history of febrile seizures, followed by onset of absence seizures when he was around 10 years old. Absence seizure's were well controlled on ethosuximide which was weaned a couple of years later. He remained seizure-free until November this year, when in the setting of sleep deprivation, he had a prolonged dialeptic seizure. This occurred again in May. More recently, he had an episode where he felt a weird feeling involving his face and jaw that also occurred prior to the other 2 episodes. Family history is negative. Neurological examination is normal. MRI of the brain in 2007 and 2015 was normal but scan quality is suboptimal and needs to be repeated given his atypical presentation. I reviewed his EEG done today which showed several bursts of generalized spike- wave complexes at approximately 4 Hz. 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 He should be started on daily antiseizure medication, using ethosuximide that has been tolerated before.Blood levels will be checked in about 6 weeks followed by EEG and virtual visit in approximately 3 months. I have discussed seizure first-aid and seizure precautions. He may not drive until he has been seizure-free minimum 6 months from the time of the last seizure. PLAN Begin ethosuximide 250 mg twice daily x1 week, then 500 mg - 250 mg x 1 week and finally 500 mg twice daily thereafter. Check blood levels in 6 weeks EEG followed by virtual visit in 3 months. The possible risks, benefits, and alternatives to this plan were discussed. I spent a total of 60 minutes on the date of the service which included preparing to see the patient, [id number] patient care, completing clinical documentation, obtaining and/or reviewing separately obtained history, performing a medically appropriate examination, counseling and educating the pat ient/family/caregiver, ordering medications, tests, or procedures, communicating with other HCPs (not separately reported), independently interpreting results (not separately reported), communicatingresults to the patient/family/caregiver, and care coordination (not separately reported). Ravinder De Los Santos MD Professor of Neurology Pediatric Epilepsy, [facility], [place] [address] Appointments: [phone] documented in this encounterAkron [facility]09-08-2022 Miscellaneous Notes* Telephone Encounter - Juhi Grant - 06/03/2022 12:04 PM EDT [facility]/records received: June 03, 2022 -EEG Reports -MRI Brain Report -Consult Notes [facility] Chart 2016 * Telephone Encounter - Juhi Grant - 06/03/2022 11:55 AM EDT Images from the original note were not included. [facility] Initial Intake Interview June 03, 2022 11:55 AM Caller: David Relationship to the patient: mother. Patient name: Bishop Srinivasan Age: [age] year old Address: [address] [place] [id number] (home) Insurance: Payor: ANISHA[employer] / Plan: BLUE ACCESS PPO / Product Type: PPO / Reason for Evaluation/Expectation for Visit: further evaluation and treatment Referred by: Physician: If no specific referring neurologist, ask for the physician (e.g., PCP) to whom the video EEG reports need to be sent. Previously evaluated at: [facility] - 2017 Tel: N/A Fax: N/A Referring to: Any - Does not want to re-establish with Dr. Porras Age & date of seizure/event onset: At Please include month & year of onset Handedness: right handed Sz frequency: Has had 2 episodes this year November and May Seizure Type A: Not present, asking questions he should know the answer to, repeating himself Duration: 1-2 minutes Seizure Type B: N/A Duration: N/A Seizure medications Current medications: None Past medications: In [facility] chart Currently on Ketogenic Diet? No If YES, notify Neur Ep Keto Epilepsy Pool (P Neur Ep Keto) via [facility] staff message. Implants (VNS/NeuroPace/shunt/orthodontic hardware/pacemaker)? No Type & Date: N/A Previous Neurosurgery? No Type & Date: N/A Anesthesia needed for imaging? No Tests Performed: Test Yes or No Date Facility EEG Yes 2016 [facility] Video EEG Yes 2016 [facility] MRI brain Yes [address] [facility] [address] brain No fMRI brain No PET No Ictal SPECT No [facility] No [facility] No Neuropsych testing No Visual field No Invasive video EEG (brain mapping) No Genetic / metabolic testing No If invasive video-EEG monitoring was performed, request: -- brain maps including any power point presentations -- disks of the study If resection was performed, request: -- operative notes -- surgical pathology reports Signed: Juhi Grant documented [facility] this encounter[facility] Miscellaneous Notes* Telephone Encounter - Lilian Starr - 06/03/2022 11:22 AM EDT Spoke with patients mother was unable to schedule had to route call to [phone] [facility] to assist in scheduling. Mom was also provided phone number. * Telephone Encounter - Destinee Lynn APRN.CNP - 06/03/2022 10:46 AM EDT Consult placed. Destinee Lynn APRN.BRANDON * Telephone Encounter - Beba Hung Ma - 06/03/2022 9:46 AM EDT Consult to neuro pended, please advise Beba Hung Ma * Telephone Encounter - Lilian Starr - 06/03/2022 8:[address] orders * Telephone Encounter - Bessy Swann LPN - 06/02/2022 6:55 PM EDT Pt's mother would like to find a Neurologist closer. Please schedule. Bessy Swann LPN * Telephone Encounter - Kathleen Pradhan APRN.CNP - 06/02/2022 5:28 PM EDT Needs to contact Dr. Chiquita Lopez for this. Thank you, Kathleen Pradhan APRN.BRANDON * Telephone Encounter - Fay Varela LPN - 06/02/2022 1:00 PM EDT Pt's mother David calling, states pt had been seeing Dr Chiquita Lopez for seizures in the past, last OV 01/04/18. David states pt has not had any seizure for a few years but in the past 3-4 wks she has noticed what appear to be absence seizures. She reports the other day pt asked her the same questions 4 timesin a row, following the questions he had a headache & muscle aches. Mom states he has had a couple episodes. Pt's mom asking if pt should see pcp or contact Dr Chiquita Lopez for this? Please advise. erythromycin documented in this encounterAk[facility] Instructions* Patient Instructions* Yani Pratt APRN.CNP - 03/30/2022 9:13 AM EDT Images from the original note were not included. 5 to Go!TM Healthy Kids Inside & Out 5 Eat FIVE fruits and veggies a day 4 Give and get FOUR compliments a day 3 Consume THREE calcium products a day 2 Limit media time to TWO hours a day 1 Get at least ONE hour of exercise a day 0 Consume ZERO sugar-sweetened drinks Go! Be healthy, inside and out! www.[facility].org/5toGo Adolescent to Adult Transition Program [facility] cares about helping you and each of our adolescents and young adults make a smoothtransition to adult care. If your current doctor is a slitter creaser slotter helper, we will work with you to decide the correct age for moving your care to a doctor or other provider who takes care of adults. We suggest that this move take place before age 22. Our office policy is to prepare you to move to a doctor or other provider who takes care of adults. This includes helping you find a doctor or other provider, sending medical records, and talking about any special needs with the new doctor or other provider. If your current doctor is in family medicine, [facility] will prepare you and your family forthe transition to being an adult patient. You will be able to make your own healthcare decisions and will have an adult care team that meets your personal healthcare needs. At age 18, by law, we need your agreement to discuss personal health information with your family. We understand and respect that you may want to include your family in healthcare choices and will partner with you on how and when to include your family in decisions. We will make sure you know what changes to expect. We will also strive to make sure that all care team providers know your needs. We will help you find community resources and specialty care, if needed. Having your information before you come for the first time helps us be sure we do not miss any details. If joining our practice from outside [facility], we will help you request your medical record from past doctor(s) before your first visit. We will make every effort to work with your past providers to ensure a smooth transition and experience. We are always here for you. If you have any questions or concerns, please contact your primary careteam or e-mail [email or web address] Got Transition is the federally funded national resource center on health care transition (HCT). Its aim is to improve transition from pediatric to adult health care through the use of evidence-driven strategies for health director long term care, youth, young adults, and their families. www.gottransition.org https://gottransition.org/resource/?rvq-dxzeil-wmrxyja Healthy Children Ages & Stages Texting Program HealthyChildren.org is an AAP ([place] Academy [employer]) parenting website. It is a great resource for information. They have a new Ages & Stages texting program available to parents. Fill out the information in the link below to start getting helpful tips and resources from AAP experts right to your phone. Be sure to include your child's age so they can send you age appropriate information. https://www.healthychildren.org/Kiswahili/tips-tools/NqmfeqhSpagtffk-Zczibox-Azoih am/Pages/default.aspx documented in this encounterAkron [facility]07-[facility]22 History of Present illness Narrative* Yani Pratt APRN.CNP - 03/30/2022 9:10 AM EDT WELL VISIT PEDIATRIC MALE 14-17 YRS OLD SERVICE DATE: 03/30/2022 Bishop is a 17 year old male who presents today for well exam accompanied by his mother. 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, Intractable, With Status Epilepticus (Hcc) - 11/03/2015 Well Child Check - 10/25/2014 Partial Epilepsy With Impairment of Consciousness (Hcc) - 06/11/2008 PAST MEDICAL HISTORY Diagnosis Date Early onset of delivery, delivered, with or without mention of antepartum condition 29 weeks gestation, Hospitalized 9 weeks in NICU [facility] Esophageal reflux Generalized seizure disorder (HCC) Hydrocele Hyposmolality and/or hyponatremia Respiratory distress syndrome in Seizures (HCC) febrile--see Neuro workup Unspecified and jaundice PAST SURGICAL HISTORY Procedure Laterality Date CIRCUMCISION PHOTOTHERAPY ALLERGIES Allergen Reactions Sunscreen Rash, Itching Equate brand Medications: No prescriptions on file. FAMILY HISTORY Problem Relation Age of Onset None Father None Paternal Grandfather other (Ulcerative Colitiis) Paternal Grandmother other (GERD) Paternal Grandmother other (Ulcerative Colitis`) Mother other (ulcerative colitis) Maternal Grandmother great GM None Maternal Grandfather Social History Social History Narrative Not on file Smoking Exposure: Does your child spend a significant amount of time in the care of anyone who smokes? No School: Grade: 12th; grades B-C. Physical Activity: less than 1 hour of physical activity per day Screen Time totaling more than 2 hours of screen time per day. Safety: Pediatric SDOH - Response to gun questions 03/24/2022 Are there any guns kept in or around your home or where your child spends time? Decline Reviewed seat belts, smoke detectors, firearms and driving Diet: -Eats 3 meals per day and 2 snacks per day -Typical beverages include water and sports drinks. -Fruits and vegetables are eaten regularly. 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 -# of days/week that family has dinner together: Never at home. Elimination: no concerns, normal size and consistency Dental: dental care current Sleep: -no sleep concerns Substance use: none High risk behaviors: none Sexual History: Attraction: female Sexually Active: No Body image: satisfactory Screening tools reviewed and discussed with patient/[id number] and Social Determinants of Health.Please see Patient Entered Data. [place]-SUICIDE SEVERITY RATING SCALE Screen with Triage Points for Primary Care 1. In the past month, have you wished you were or wished you could go to sleep and not wake up? NO 2. In the past month, have you actually had any thoughts of killing yourself? NO 6. Have you ever done anything, started to do anything, or prepared to do anything to end your life? Examples: Collected pills, obtained a gun, gave away valuables, wrote a will or suicide note, took out pills but didn't swallow any, held a gun but changed your mind or it was grabbed from your hand,went to the roof but didn't jump; or actually took pills, tried to shoot yourself, cut yourself, tried to hang yourself, etc. NO REVIEW OF SYSTEMS GENERAL: No fevers/chills, weight loss/fatigue. EYES: No vision concerns ENT: No hearing concerns RESPIRATORY: Negative for cough, wheezing or respiratory distress CARDIOVASCULAR: Negative for chest pain, syncope, lightheadness or heart racing SKIN: Negative for lesions, rash, and itching ENDOCRINE: No growth concerns OBJECTIVE Physical Exam: BP 110/76 Pulse 86 Resp 18 Ht 174.5 cm (5' 8.7) Wt 59 kg (130 lb) SpO2 98% BMI 19.37 kg/m Blood pressure percentiles are 28 % systolic and 80 % diastolic based on the 2017 AAP Clinical Practice Guideline. This reading is in the normal blood pressure range. 22 %ile (Z= -0.78) based on CDC (Boys, 2-20 Years) BMI-for-age based on BMI available as of 03/30/2022. Last BMI: Wt: 43.6 kg (96 lb 3.2 oz) (44 %, Z= -0.16)* BMI: 17.70 kg/(m^2) Last 4 Encounter Wt Readings: Date: Wt: 03/30/2022 59 kg (130 lb) (27 %, Z= -0.61)* 01/04/2018 43.6 kg (96 lb 3.2 oz) (44 %, Z= -0.16)* 04/04/2017 35.4 kg (78 lb) (21 %, Z= -0.82)* 05/03/2016 31.6 kg (69 lb 11.2 oz) (19 %, Z= -0.86)* Last 4 Encounter Ht Readings: Date: Ht: 03/30/2022 174.5 cm (5' 8.7) (45 %, Z= -0.13)* 01/04/2018 157 cm (5' 1.81) (59 %, Z= 0.22)* 04/04/2017 147.5 cm (4' 10.07) (37 %, Z= -0.33)* 05/03/2016 139.7 cm (4' 7) (24 %, Z= -0.70)* General: Well developed, No acute distress Head: normocephalic Eyes: conjunctivae/corneas clear, pupils equal and reactive to light, extraocular movements intact Ears: normal external ear and canal, tympanic membranes with normal landmarks Nose: no erythema or rhinorrhea Oropharynx: moist mucous membranes, no erythema or exudate Neck: Supple, no adenopathy; thyroid symmetric, normal size, no bruits Spine: Back symmetric, no curvature Resp: lungs clear to auscultation Heart: RRR, normal S1 and S2. , No murmurs Chest: symmetric, no lesions Abdomen: Soft, nontender, nondistended, no palpable organomegaly or masses, normal bowel sounds Extremities: No clubbing, cyanosis, or edema., No deformities or skin discoloration. Good capillaryrefill. Full range of motion. Neuro: No focal deficits or abnormal findings present Skin: no rashes, lesions or jaundice ASSESSMENT & PLAN Encounter Diagnosis ICD-10-CM 1. Encounter for routine child health examination w/o abnormal findings Z00.129 Healthy exam. 2. Encounter for immunization Z23 menactra today. Discussed HPV vaccine with patient and mother. They will continue to consider. 22 %ile (Z= -0.78) based on CDC (Boys, 2-20 Years) BMI-for-age based on BMI available as of 03/30/2022. Bishop is normal weight (BMI 5th% - 84th%): -To maintain a healthy weight, discussed limiting screen time to less than 2 hours per day, physical activity for at least one hour per day, 5 servings of fruits and vegetables per day, 3 meals per day, family meals ar home and no sugar containing beverages Based on PHQ-A Score: (recommended cut off score is 11) and interview, presentation is not consistent with depression - Adolescent anticipatory guidance discussed. - Discussed diet and safety. - Dental care discussed. - Bright Futures handout given (See Patient Instructions). - Parent/guardian was counseled [id number] by myself (the billing provider) for the following immunizations and vaccine components, including side effects: Menactra. Parent/guardian consents for immunization and understands risks and benefits. A VIS sheet on each immunization was given to the parent/guardian. - Follow up in one year for routine physical. SIGNATURE: Yani Pratt APRN.CNP PATIENT NAME: Bishop Srinivasan DATE: March 30, 2022 TIME: 9:13 AM documented in this encounterAk[facility] History of Past illness Narrative* Problem Noted Date Resolved Date Febrile convulsions (simple), unspecified 200704/04/2017 documented as of this encounter (statuses as of 03/30/2022) [facility] Narrative* Problem Noted Date Resolved Date Febrile convulsions (simple), unspecified 200704/04/2017 documented as of this encounter (statuses as of 06/03/2022) [facility] Narrative* Problem Noted Date Resolved Date Febrile convulsions (simple), unspecified 200704/04/2017 documented as of this encounter (statuses as of 06/03/2022) [facility] Narrative* Problem Noted Date Resolved Date Febrile convulsions (simple), unspecified 200704/04/2017 documented as of this encounter (statuses as of 07/06/2022) [address] History of Past illness Narrative* Problem Noted Date Resolved Date Febrile convulsions (simple), unspecified 200704/04/2017 documented as of this encounter (statuses as of 07/09/2022) [facility] Narrative* Problem Noted Date Resolved Date Febrile convulsions (simple), unspecified 200704/04/2017 documented as of this encounter (statuses as of 07/13/2022) [address] History of Past illness Narrative* Problem Noted Date Resolved Date Febrile convulsions (simple), unspecified 200704/04/2017 documented as of this encounter (statuses as of 08/18/2022) [address] History of Past illness Narrative* Problem Noted Date Resolved Date Febrile convulsions (simple), unspecified 200704/04/2017 documented as of this encounter (statuses as of 09/02/2022) [address] History of Past illness Narrative* Problem Noted Date Resolved Date Febrile convulsions (simple), unspecified 200704/04/2017 documented as of this encounter (statuses as of 09/17/2022) [facility] Narrative* Problem Noted Date Resolved Date Febrile convulsions (simple), unspecified 200704/04/2017 documented as of this encounter (statuses as of 09/29/2022) [place] [address]03-2008 History of Past illness Narrative* Problem Noted Date Resolved Date Febrile convulsions (simple), unspecified 200704/04/2017 documented as of this encounter (statuses as of 10/15/2022) [facility] Narrative* Problem Noted Date Resolved Date Febrile convulsions (simple), unspecified 200704/04/2017 documented as of this encounter (statuses as of 10/22/2022) [place] [address] History of Past illness Narrative* Problem Noted Date Resolved Date Febrile convulsions (simple), unspecified 200704/04/2017 documented as of this encounter (statuses as of 10/26/2022) [address] History of Past illness Narrative* Problem Noted Date Resolved Date Febrile convulsions (simple), unspecified 200704/04/2017 documented as of this encounter (statuses as of 10/26/2022) [address] History of Past illness Narrative* Problem Noted Date Resolved Date Febrile convulsions (simple), unspecified 200704/04/2017 documented as of this encounter (statuses as of 10/27/2022) [address] History of Past illness Narrative* Problem Noted Date Resolved Date Febrile convulsions (simple), unspecified 200704/04/2017 documented as of this encounter (statuses as of 10/27/2022) [address] History of Past illness Narrative* Problem Noted Date Resolved Date Febrile convulsions (simple), unspecified 200704/04/2017 documented as of this encounter (statuses as of 11/04/2022) [address] History of Past illness Narrative* Problem Noted Date Resolved Date Febrile convulsions (simple), unspecified 200704/04/2017 documented as of this encounter (statuses as of 11/04/2022) [place] [address]2008 History of Past illness Narrative* Problem Noted Date Resolved Date Febrile convulsions (simple), unspecified 200704/04/2017 documented as of this encounter (statuses as of 11/16/2022) [address] History of Past illness Narrative* Problem Noted Date Resolved Date Febrile convulsions (simple), unspecified 200704/04/2017 documented as of this encounter (statuses as of 11/17/2022) [facility] N[facility]* Problem Noted Date Resolved Date Febrile convulsions (simple), unspecified 200704/04/2017 documented as of this encounter (statuses as of 11/25/2022) [place] [address]2008 History of Past illness Narrative* Problem Noted Date Resolved Date Febrile convulsions (simple), unspecified 200704/04/2017 documented as of this encounter (statuses as of 12/10/2022) [address] History of Past illness Narrative* Problem Noted Date Resolved Date Febrile convulsions (simple), unspecified 200704/04/2017 documented as of this encounter (statuses as of 12/14/2022) [address] History of Past illness Narrative* Problem Noted Date Resolved Date Febrile convulsions (simple), unspecified 200704/04/2017 documented as of this encounter (statuses as of 12/31/2022) [address] History of Past illness Narrative* Problem Noted Date Resolved Date Febrile convulsions (simple), unspecified 200704/04/2017 documented as of this encounter (statuses as of 01/01/2023) [address] History of Past illness Narrative* Problem Noted Date Resolved Date Febrile convulsions (simple), unspecified 200704/04/2017 documented as of this encounter (statuses as of 01/01/2023) [address] History of Past illness Narrative* Problem Noted Date Resolved Date Febrile convulsions (simple), unspecified 200704/04/2017 documented as of this encounter (statuses as of 02/23/2023) [address] History of Past illness Narrative* Problem Noted Date Resolved Date Febrile convulsions (simple), unspecified 200704/04/2017 documented as of this encounter (statuses as of 02/25/2023) [place] [address]2008 History of Past illness Narrative* Problem Noted Date Diagnosed Date Resolved Date Febrile convulsions (simple), unspecified 02/27/2008 04/04/2017 documented as of this encounter (statuses as of 04/04/2023) [place] [address] History of Past illness Narrative* Problem Noted Date Diagnosed Date Resolved Date Febrile convulsions (simple), unspecified 02/27/2008 04/04/2017 documented as of this encounter (statuses as of 04/13/2023) [place] [address]2008 History of Past illness Narrative* Problem Noted Date Diagnosed Date Resolved Date Febrile convulsions (simple), unspecified 02/27/2008 04/04/2017 documented as of this encounter (statuses as of 04/21/2023) [facility] Narrative* Problem Noted Date Diagnosed Date Resolved Date Febrile convulsions (simple), unspecified 02/27/2008 04/04/2017 documented as of this encounter (statuses as of 04/21/2023) [address] History of Past illness Narrative* Problem Noted Date Diagnosed Date Resolved Date Febrile convulsions (simple), unspecified 02/27/2008 04/04/2017 documented as of this encounter (statuses as of 06/01/2023) [address] History of Past illness Narrative* Problem Noted Date Diagnosed Date Resolved Date Febrile convulsions (simple), unspecified 02/27/2008 04/04/2017 documented as of this encounter (statuses as of 07/11/2023) [address] History of Past illness Narrative* Problem Noted Date Diagnosed Date Resolved Date Febrile convulsions (simple), unspecified 02/27/2008 04/04/2017 documented as of this encounter (statuses as of 07/12/2023) [address] History of Past illness Narrative* Problem Noted Date Diagnosed Date Resolved Date Febrile convulsions (simple), unspecified 02/27/2008 04/04/2017 documented as of this encounter (statuses as of 09/09/2023) [facility] N[facility]ative* Problem Noted Date Diagnosed Date Resolved Date Febrile convulsions (simple), unspecified 02/27/2008 04/04/2017 documented as of this encounter (statuses as of 11/02/2023) [address] History of Past illness Narrative* Problem Noted Date Diagnosed Date Resolved Date Febrile convulsions (simple), unspecified 02/27/2008 04/04/2017 documented as of this encounter (statuses as of 11/11/2023) [facility] Narrative* Problem Noted Date Diagnosed Date Resolved Date Febrile convulsions (simple), unspecified 02/27/2008 04/04/2017 documented as of this encounter (statuses as of 11/18/2023) [facility] Narrative* Problem Noted Date Diagnosed Date Resolved Date Febrile convulsions (simple), unspecified 02/27/2008 04/04/2017 documented as of this encounter (statuses as of 12/12/2023) [facility] Narrative* Problem Noted Date Diagnosed Date Resolved Date Febrile convulsions (simple), unspecified 02/27/2008 04/04/2017 documented as of this encounter (statuses as of 01/11/2024) [facility] Diagnosis Encounter for routine child health examination w/o abnormal findings- Primary Routine or child health check Encounter for immunization Need for other specified prophylactic vaccination against single bacterial disease [facility]* Diagnosis Childhood absence epilepsy, 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) Localization-related (focal) (partial) epilepsy and epileptic syndromes with complex partial seizures, without mention of intractable epilepsy Partial symptomatic epilepsy with complex partial seizures, intractable, with status epilepticus (HCC) [facility]* Diagnosis 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 [facility]* 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 without mention of intractable epilepsy [facility]* Diagnosis Diarrhea, unspecified type- Primary Blood in stool documented in this encounter [facility] noteNo assessment information availableWOhioHealth [facility] Work Phone: Evaluation note* Diagnosis Diarrhea, unspecified type- Primary Blood in stool [facility]* Diagnosis Blood in stool- Primary Diarrhea, unspecified type Family history of ulcerative colitis Family history of other digestive disorders Diarrhea, unspecified type Blood in stool [facility]* Diagnosis Ulcerative pancolitis without complication (HCC)- Primary [facility]* Diagnosis Other ulcerative colitis with rectal bleeding (HCC)- Primary Vitamin D deficiency Unspecified vitamin D deficiency Iron deficiency anemia due to chronic blood loss Iron deficiency anemia secondary to blood loss (chronic) Current use of steroid medication [facility]* Diagnosis Other ulcerative colitis with rectal bleeding (HCC)- Primary Vitamin D deficiency Unspecified vitamin D deficiency Iron deficiency anemia due to chronic blood loss Iron deficiency anemia secondary to blood loss (chronic) Current use of steroid medication Family history of ulcerative colitis Family history of other digestive disorders 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) Other and unspecified complications of medical care, not elsewhere classified [facility] Other ulcerative colitis with rectal bleeding (HCC) [facility] Diagnosis Other ulcerative colitis with rectal bleeding (HCC)- Primary Vitamin D deficiency Unspecified vitamin D deficiency 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) Other and unspecified complications of medical care, not elsewhere classified Family history of ulcerative colitis Family history of other digestive disorders [facility] Diagnosis Encounter for immunization- Primary Need for other specified prophylactic vaccination against single bacterial disease [facility] Diagnosis 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 Localization-related (focal) (partial) epilepsy and epileptic syndromes with complex partial seizures, without mention of intractable epilepsy [facility] Diagnosis Encounter for immunization- Primary Need for other specified prophylactic vaccination against single bacterial disease [facility] Diagnosis Encounter for immunization- Primary Need for other specified prophylactic vaccination against single bacterial disease [facility] Diagnosis Other ulcerative colitis with rectal bleeding (HCC)- Primary Vitamin D deficiency Unspecified vitamin D deficiency 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) Other and unspecified complications of medical care, not elsewhere classified Family history of ulcerative colitis Family history of other digestive disorders Iron deficiency anemia due to chronic blood loss Iron deficiency anemia secondary to blood loss (chronic) Long-term current use of mesalamine Variable compliance with medication therapy [facility] Diagnosis 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 Localization-related (focal) (partial) epilepsy and epileptic syndromes with complex partial seizures, without mention of intractable epilepsy Partial symptomatic epilepsy with complex partial seizures, intractable, with status epilepticus (HCC) [facility] Need for vaccination- Primary Need for prophylactic vaccination and inoculation against unspecified single disease [facility] Diagnosis 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 Localization-related (focal) (partial) epilepsy and epileptic syndromes with complex partial seizures, without mention of intractable epilepsy [facility] 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 without mention of intractable epilepsy [facility] Diagnosis Other ulcerative colitis with rectal bleeding (HCC)- Primary Stress at home Unspecified family circumstance Long-term current use of mesalamine Family history of ulcerative colitis Family history of other digestive disorders Non-adherence to medical treatment Personal history of noncompliance with medical treatment, presenting hazards to health [facility] Diagnosis 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 Localization-related (focal) (partial) epilepsy and epileptic syndromes with complex partial seizures, without mention of intractable epilepsy Childhood absence epilepsy, 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 [facility] Diagnosis Counseling for transition from pediatric to adult model of care- Primary 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 without mention of intractable epilepsy [facility] Diagnosis Other ulcerative colitis with complication (HCC)- Primary Family history of ulcerative colitis Family history of other digestive disorders Non-adherence to medical treatment Personal history of noncompliance with medical treatment, presenting hazards to health 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 CT scan negative for any structural abnormalities. Monitor bleeding. Continue Pepcid. Avoid any NSAIDs. May use Tylenol or acetaminophen as needed. Follow-up with Dr. La as an outpatient for work-up with strong family history of ulcerative colitis. [facility] Work Phone: Reason for referral (narrative)* Outpatient Procedure (Routine) - Pending Review Specialty Diagnoses / Procedures Referred By Vimal rojas Referred To Contact [facility] Diagnoses Juvenile absence epilepsy (HCC) Procedures EPIL EEG ROUTINE ELECTROENCEPHALOGRAM REC COMA/SLEEP ONLY Ravinder De Los Santos MD [address] [facility] [address] [place] [address] Neurological Pearl [facility] [place] [address] Referral ID Status Reason Start Date Expiration Date Visits Requested Visits Authorized [id number] Pending Review Auto-Generat ed Referral 2 07/05/2023 1 1 [facility] for referral (narrative)* Outpatient Procedure (Routine) - Pending Review Specialty Diagnoses / Procedures Referred By Vimal rojas Referred To Contact [facility] Diagnoses Partial epilepsy with impairment of consciousness (HCC) Procedures EPIL EEG ROUTINE ELECTROENCEPHALOGRAM REC COMA/SLEEP ONLY Ravinder De Los Santos MD [address] [facility] [address] [place] [address] Neurological [facility] [address] [place] [address] Referral ID Status Reason Start Date Expiration Date Visits Requested Visits Authorized [id number] Pending Review Auto-Generat ed Referral 11/01/2023 11/01/2024 1 1 [facility] for referral (narrative)No reason for referral information [facility]WOhio[facility] Work Phone: Reason for Referral Specialty Diagnoses / Procedures Referred By Vimal rojas Referred To Contact Neurology Diagnoses Childhood absence epilepsy, 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, intractable, with status epilepticus (HCC) Procedures CONSULT TO NEUROLOGY OFFICE/OUTPATIENT [facility] 60-74 MINUTES Luis Norwood DO [address] [place] [address] Referral ID Status Reason Start Date Expiration Date Visits Requested Visits Authorized [id number] Authorized PCP Requested Referral 06/03/2022 06/03/2023 1 1 Specialty Diagnoses / Procedures Referred By Vimal rojas Referred To Contact Gastroenterology Diagnoses Diarrhea, unspecified type Blood in stool Procedures CONSULT TO GASTROENTEROLOGY OFFICE/OUTPATIENT [facility] M[facility] 60-74 MINUTES Luis Norwood, DO [address] [place] [address] Referral ID Status Reason Start Date Expiration Date Visits Requested Visits Authorized [id number] Authorized PCP Requested Referral 10/25/2022 10/25/2023 1 1 Specialty Diagnoses / Procedures Referred By Contac t Referred To Contact Ophthalmology Diagnoses Other ulcerative colitis with rectal bleeding (HCC) Procedures CONSULT TO OPHTHALMOLOGY OFFICE/[facility]PATIENT [facility] MDM 60-74 MINUTES Williams Francis MD [address] [place] [address] Referral ID Status Reason Start Date Expiration Date Visits Requested Visits Authorized [id number] Authorized PCP Requested Referral 11/16/2022 11/16/2023 1 1 Specialty Diagnoses / Procedures Referred By Contac t Referred To Contact MR IMAGING Diagnoses Other ulcerative colitis with rectal bleeding (HCC) Procedures MRI PEL ENTEROG WO/W IVCON MRI PELVIS W/O & W/CONTRAST MATERIAL Williams Francis MD [address] [place] [address] Mr Imaging Referral ID Status Reason Start Date Expiration Date Visits Requested Visits Authorized [id number] Pending Review Auto-Generat ed Referral 11/16/2022 12/16/2023 1 1 Specialty Diagnoses / Procedures Referred By Contac t Referred To Contact MR IMAGING Diagnoses Other ulcerative colitis with rectal bleeding (HCC) Procedures MRI ABD ENTEROG WO/W IVCON MRI ABDOMEN W/O & W/CONTRAST MATERIAL MRI PELVIS W/O & W/CONTRAST MATERIAL Williams Francis MD [address] [place] [address] Mr Imaging Referral ID Status Reason Start Date Expiration Date Visits Requested Visits Authorized [id number] Pending Review Auto-Generat ed Referral 11/16/2022 12/16/2023 1 1 Referral ID Status Reason Start Date Expiration Date V isits Requested Visits Authorized [id number] Closed Auto-Generate d Referral 11/16/2022 12/16/2023 2 2 Referral ID Status Reason Start Date Expiration Date V isits Requested Visits Authorized [id number] Closed Auto-Generate d Referral 11/16/2022 12/16/2023 1 1 Chief Complaint and Reason for Visit Chief Complaint GI BLEED Chief Complaint Admit Date EORDERS November 13, 2024 12:38pm Seizure November 13, 2024 12:53pm HX OF GENERALIZED SEIZURES December 28 1:17pm Reason for Visit Admit Date Epilepsy November 13, 2024 12:53pm Memory loss November 13, 2024 12:53pm Chief Complaint Admit Date EORDERS November 13, 2024 12:38pm Seizure November 13, 2024 12:53pm HX OF GENERALIZED SEIZURES December 28 1:17pm 6 M FU February 07, 2025 2:53p m Summary Purpose Family History No Family History Records FoundNo Family History Records FoundNo Family History Records Found Advance Directives No Advanced Directives Records FoundNo Advanced Directives Records FoundNo Advanced Directives Records Found Additional Source Comments Source Comments (unrecognize d section and content) In the event this informatio n is protected by the Federal Confidentiality of Alcohol and Drug Abuse Patient Records regulations: The Federal rules restrict any use of the information to criminally investigate or prosecute any alcohol or drug abuse patient.[facility] the event this information is protected by the Federal Confidentiality of Alcohol and Drug Abuse Patient Records regulations: The Federal rules restrict any use of the information to criminally investigate or prosecute any alcohol or drug abuse patient.[facility] the event this information is protected by the Federal Confidentiality of Alcohol and Drug Abuse Patient Records regulations: The Federal rules restrict any use of the information to criminally investigate or prosecute any alcohol or drug abuse patient.[facility] the event this information is protected by the Federal Confidentiality of Alcohol and Drug Abuse Patient Records regulations: The Federal rules restrict any use of the information to criminally investigate or prosecute any alcohol or drug abuse patient.[facility] the event this information is protected by the Federal Confidentiality of Alcohol and Drug Abuse Patient Records regulations: The Federal rules restrict any use of the information to criminally investigate or prosecute any alcohol or drug abuse patient.[facility] the event this information is protected by the Federal Confidentiality of Alcohol and Drug Abuse Patient Records regulations: The Federal rules restrict any use of the information to criminally investigate or prosecute any alcohol or drug abuse patient.[facility] Hospital[facility] the event this information is protected by the Federal Confidentiality of Alcohol and Drug Abuse Patient Records regulations: The Federal rules restrict any use of the information to criminally investigate or prosecute any alcohol or drug abuse patient.[facility] Hospital[facility] the event this information is protected by the Federal Confidentiality of Alcohol and Drug Abuse Patient Records regulations: The Federal rules restrict any use of the information to criminally investigate or prosecute any alcohol or drug abuse patient.[facility] Hospital[facility] the event this information is protected by the Federal Confidentiality of Alcohol and Drug Abuse Patient Records regulations: The Federal rules restrict any use of the information to criminally investigate or prosecute any alcohol or drug abuse patient.[facility] Hospital[facility] the event this information is protected by the Federal Confidentiality of Alcohol and Drug Abuse Patient Records regulations: The Federal rules restrict any use of the information to criminally investigate or prosecute any alcohol or drug abuse patient.[facility] Hospital[facility] the event this information is protected by the Federal Confidentiality of Alcohol and Drug Abuse Patient Records regulations: The Federal rules restrict any use of the information to criminally investigate or prosecute any alcohol or drug abuse patient.[facility] the event this information is protected by the Federal Confidentiality of Alcohol and Drug Abuse Patient Records regulations: The Federal rules restrict any use of the information to criminally investigate or prosecute any alcohol or drug abuse patient.[facility] Hospital[facility] the event this information is protected by the Federal Confidentiality of Alcohol and Drug Abuse Patient Records regulations: The Federal rules restrict any use of the information to criminally investigate or prosecute any alcohol or drug abuse patient.[facility] HospitalIn the event this information is protected by the Federal Confidentiality of Alcohol and Drug Abuse Patient Records regulations: The Federal rules restrict any use of the information to criminally investigate or prosecute any alcohol or drug abuse patient.[facility] the event this information is protected by the Federal Confidentiality of Alcohol and Drug Abuse Patient Records regulations: The Federal rules restrict any use of the information to criminally investigate or prosecute any alcohol or drug abuse patient.[facility] Hospital[facility] the event this information is protected by the Federal Confidentiality of Alcohol and Drug Abuse Patient Records regulations: The Federal rules restrict any use of the information to criminally investigate or prosecute any alcohol or drug abuse patient.[facility] Hospital[facility] the event this information is protected by the Federal Confidentiality of Alcohol and Drug Abuse Patient Records regulations: The Federal rules restrict any use of the information to criminally investigate or prosecute any alcohol or drug abuse patient.[facility] Hospital[facility] the event this information is protected by the Federal Confidentiality of Alcohol and Drug Abuse Patient Records regulations: The Federal rules restrict any use of the information to criminally investigate or prosecute any alcohol or drug abuse patient.[facility] Hospital[facility] the event this information is protected by the Federal Confidentiality of Alcohol and Drug Abuse Patient Records regulations: The Federal rules restrict any use of the information to criminally investigate or prosecute any alcohol or drug abuse patient.[facility] HospitalIn the event this information is protected by the Federal Confidentiality of Alcohol and Drug Abuse Patient Records regulations: The Federal rules restrict any use of the information to criminally investigate or prosecute any alcohol or drug abuse patient.[facility] HospitalIn the event this information is protected by the Federal Confidentiality of Alcohol and Drug Abuse Patient Records regulations: The Federal rules restrict any use of the information to criminally investigate or prosecute any alcohol or drug abuse patient.[facility] HospitalIn the event this information is protected by the Federal Confidentiality of Alcohol and Drug Abuse Patient Records regulations: The Federal rules restrict any use of the information to criminally investigate or prosecute any alcohol or drug abuse patient.[facility] Hospital[facility] the event this information is protected by the Federal Confidentiality of Alcohol and Drug Abuse Patient Records regulations: The Federal rules restrict any use of the information to criminally investigate or prosecute any alcohol or drug abuse patient.[facility] HospitalIn the event this information is protected by the Federal Confidentiality of Alcohol and Drug Abuse Patient Records regulations: The Federal rules restrict any use of the information to criminally investigate or prosecute any alcohol or drug abuse patient.[facility] HospitalIn the event this information is protected by the Federal Confidentiality of Alcohol and Drug Abuse Patient Records regulations: The Federal rules restrict any use of the information to criminally investigate or prosecute any alcohol or drug abuse patient.[facility] HospitalIn the event this information is protected by the Federal Confidentiality of Alcohol and Drug Abuse Patient Records regulations: The Federal rules restrict any use of the information to criminally investigate or prosecute any alcohol or drug abuse patient.[facility] HospitalIn the event this information is protected by the Federal Confidentiality of Alcohol and Drug Abuse Patient Records regulations: The Federal rules restrict any use of the information to criminally investigate or prosecute any alcohol or drug abuse patient.[facility] HospitalIn the event this information is protected by the Federal Confidentiality of Alcohol and Drug Abuse Patient Records regulations: The Federal rules restrict any use of the information to criminally investigate or prosecute any alcohol or drug abuse patient.[facility] HospitalIn the event this information is protected by the Federal Confidentiality of Alcohol and Drug Abuse Patient Records regulations: The Federal rules restrict any use of the information to criminally investigate or prosecute any alcohol or drug abuse patient.[facility] HospitalIn the event this information is protected by the Federal Confidentiality of Alcohol and Drug Abuse Patient Records regulations: The Federal rules restrict any use of the information to criminally investigate or prosecute any alcohol or drug abuse patient.[facility] HospitalIn the event this information is protected by the Federal Confidentiality of Alcohol and Drug Abuse Patient Records regulations: The Federal rules restrict any use of the information to criminally investigate or prosecute any alcohol or drug abuse patient.[facility] HospitalIn the event this information is protected by the Federal Confidentiality of Alcohol and Drug Abuse Patient Records regulations: The Federal rules restrict any use of the information to criminally investigate or prosecute any alcohol or drug abuse patient.[facility] HospitalIn the event this information is protected by the Federal Confidentiality of Alcohol and Drug Abuse Patient Records regulations: The Federal rules restrict any use of the information to criminally investigate or prosecute any alcohol or drug abuse patient.[facility] HospitalIn the event this information is protected by the Federal Confidentiality of Alcohol and Drug Abuse Patient Records regulations: The Federal rules restrict any use of the information to criminally investigate or prosecute any alcohol or drug abuse patient.[facility] HospitalIn the event this information is protected by the Federal Confidentiality of Alcohol and Drug Abuse Patient Records regulations: The Federal rules restrict any use of the information to criminally investigate or prosecute any alcohol or drug abuse patient.[facility] HospitalIn the event this information is protected by the Federal Confidentiality of Alcohol and Drug Abuse Patient Records regulations: The Federal rules restrict any use of the information to criminally investigate or prosecute any alcohol or drug abuse patient.[facility] HospitalIn the event this information is protected by the Federal Confidentiality of Alcohol and Drug Abuse Patient Records regulations: The Federal rules restrict any use of the information to criminally investigate or prosecute any alcohol or drug abuse patient.[facility] HospitalIn the event this information is protected by the Federal Confidentiality of Alcohol and Drug Abuse Patient Records regulations: The Federal rules restrict any use of the information to criminally investigate or prosecute any alcohol or drug abuse patient.[facility] HospitalIn the event this information is protected by the Federal Confidentiality of Alcohol and Drug Abuse Patient Records regulations: The Federal rules restrict any use of the information to criminally investigate or prosecute any alcohol or drug abuse patient.[facility] HospitalIn the event this information is protected by the Federal Confidentiality of Alcohol and Drug Abuse Patient Records regulations: The Federal rules restrict any use of the information to criminally investigate or prosecute any alcohol or drug abuse patient.[facility] HospitalIn the event this information is protected by the Federal Confidentiality of Alcohol and Drug Abuse Patient Records regulations: The Federal rules restrict any use of the information to criminally investigate or prosecute any alcohol or drug abuse patient.[facility] HospitalIn the event this information is protected by the Federal Confidentiality of Alcohol and Drug Abuse Patient Records regulations: The Federal rules restrict any use of the information to criminally investigate or prosecute any alcohol or drug abuse patient.[facility] HospitalIn the event this information is protected by the Federal Confidentiality of Alcohol and Drug Abuse Patient Records regulations: The Federal rules restrict any use of the information to criminally investigate or prosecute any alcohol or drug abuse patient.[facility] HospitalIn the event this information is protected by the Federal Confidentiality of Alcohol and Drug Abuse Patient Records regulations: The Federal rules restrict any use of the information to criminally investigate or prosecute any alcohol or drug abuse patient.[facility] HospitalIn the event this information is protected by the Federal Confidentiality of Alcohol and Drug Abuse Patient Records regulations: The Federal rules restrict any use of the information to criminally investigate or prosecute any alcohol or drug abuse patient.[facility] HospitalIn the event this information is protected by the Federal Confidentiality of Alcohol and Drug Abuse Patient Records regulations: The Federal rules restrict any use of the information to criminally investigate or prosecute any alcohol or drug abuse patient.[facility] HospitalIn the event this information is protected by the Federal Confidentiality of Alcohol and Drug Abuse Patient Records regulations: The Federal rules restrict any use of the information to criminally investigate or prosecute any alcohol or drug abuse patient.[facility] Reason for Visit (unrecogniz ed section and content) Reason Comments Well Child Specialty Diagnoses / Procedures Referred By Contac t Referred To Contact Family Practice / FAMILY MEDICINE Diagnoses Encounter for immunization vaccines for 12th grade -Tdap and a meningococcal Procedures OFFICE/OUTPATIENT ESTABLISHED MOD [facility] 30-39 MIN [facility] [place] Christy, SOCIOCULTURAL ANTHROPOLOGY PROFESSOR.[employer] [address] [place] [address] Referral ID Status Reason Start Date Expiration Date V isits Requested Visits Authorized [id number] Denied Clearance Not Met - Admin/Chairm an/Director Advise to Postpone/Res chedule or Not Proceed 03/30/2022 06/28/2022 1 0 Reason Comments Seizures Reason Comments Future Appointment [place], [place], Any Reason Comments New Patient Reason Comments Medication Problem Side effects since s tarting Ethosuximde a few days ago Reason Comments Acute Visit diarrhea and them bl ood afterwards when wiping Reason Comments Results Reason Comments medication concern ethosuximide Reason Comments Referral Request Reason Comments Consult Diarrhea,blood in st ool, and abd pain Specialty Diagnoses / Procedures Referred By Contac t Referred To Contact Gastroenterology Diagnoses Diarrhea, unspecified type Blood in stool Procedures CONSULT TO GASTROENTEROLOGY OFFICE/OUTPATIENT [facility] 60-74 MINUTES Luis Norwood, DO [address] [place] [address] Referral ID Status Reason Start Date Expiration Date V isits Requested Visits Authorized [id number] Closed PCP Requested Referral 10/25/2022 10/25/2023 1 1 Reason Comments Results Follow up frm colono scopy Reason Onset Date Comments Refill Request 12/10/2022 Reason Comments Ulcerative Colitis F/u , improved. No p ain today per pt. 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 - Other check in Reason Comments Radiology MRI Specialty Diagnoses / Procedures Referred By Contac t Referred To Contact MR IMAGING Diagnoses Other ulcerative colitis with rectal bleeding (HCC) Procedures MRI PEL ENTEROG WO/W IVCON MRI PELVIS W/O & W/CONTRAST MATERIAL Williams Francis MD [address] [place] [address] Mr Imaging Referral ID Status Reason Start Date Expiration Date V isits Requested Visits Authorized [id number] Closed Auto-Generate d Referral 11/16/2022 12/16/2023 2 2 Specialty Diagnoses / Procedures [facility] Diagnoses Other ulcerative colitis with rectal bleeding (HCC) Procedures MRI ABD ENTEROG WO/W IVCON MRI ABDOMEN W/O & W/CONTRAST MATERIAL MRI PELVIS W/O & W/CONTRAST MATERIAL Williams Francis MD [address] [place] [address] Mr Imaging Referral ID Status Reason Start Date Expiration Date V isits Requested Visits Authorized [id number] Closed Auto-Generate d Referral 11/16/2022 12/16/2023 1 1 Reason Comments Ulcerative Colitis Reason Comments Orders Reason Comments Lab Orders Reason Comments Medication Authorization PA for divalpro ex DR (DEPAKOTE) 250 mg EC tablet Reason Comments Follow Up Reason Comments Opened In Error Reason Comments Imm/Inj Reason Comments Epilepsy Reason Comments Refill Request Reason Comments Insurance Authorization divalproex Reason Comments general Lab question Reason Comments Established Patient 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 - Other follow up Care Teams (unrecognized sec tion and content) Deburring Technician Relationship Specialty Start Date End Date Luis Norwood, DO [address] [facility] [place] [address] PCP - General Family Practice 10/28/14 Deburring Technician Relationship Specialty Start Date End Date Luis Norwood, DO [address] [facility] [place] [address] PCP - General Family Practice 10/28/14 Deburring Technician Relationship Specialty Start Date End Date Luis Norwood, DO [address] [facility] [place] [address] PCP - General Family Practice 10/28/14 Deburring Technician Relationship Specialty Start Date End Date Luis Norwood, DO [address] [facility] [place] [address] PCP - General Family Medicine 10/28/14 Deburring Technician Relationship Specialty Start Date End Date Luis Norwood, DO [address] [facility] [place] [address] PCP - General Family Medicine 10/28/14 Deburring Technician Relationship Specialty Start Date End Date Luis Norwood, DO [address] [facility] [place] [address] PCP - General Family Medicine 10/28/14 Deburring Technician Relationship Specialty Start Date End Date Luis Norwood, DO [address] [facility] [place] [address] PCP - General Family Medicine 10/28/14 Deburring Technician Relationship Specialty Start Date End Date Luis Norwood, DO [address] [facility] [place] [address] PCP - General Family Medicine 10/28/14 Deburring Technician Relationship Specialty Start Date End Date Lusi Norwood, DO [address] [place] [address] PCP - General Family Medicine 10/28/14 Deburring Technician Relationship Specialty Start Date End Date Luis Norwood, DO [address] [place] [address] PCP - General Family Medicine 10/28/14 Team Status: Active Member Role Status Dates Karlo Blankenship Family Provider Active Dr. Luis Norwood , DO Primary Care Provider Active Team Status: Inactive Member Role Status Dates Dr. Luis Norwood , DO Primary Care Provider Active Dr. Riki Arana , DO Emergency Provider Active Deburring Technician Relationship Specialty Start Date End Date Luis Norwood, DO [address] [place] [address] PCP - General Family Medicine 10/28/14 Deburring Technician Relationship Specialty Start Date End Date Luis Norwood, DO [address] [place] [address] PCP - General Family Medicine 10/28/14 Deburring Technician Relationship Specialty Start Date End Date Luis Norwood, DO [address] [place] [address] PCP - General Family Medicine 10/28/14 Deburring Technician Relationship Specialty Start Date End Date Luis Norwood, DO [address] [place] [address] PCP - General Family Medicine 10/28/14 Deburring Technician Relationship Specialty Start Date End Date Luis Norwood, DO [address] [place] [address] PCP - General Family Medicine 10/28/14 Deburring Technician Relationship Specialty Start Date End Date Luis Norwood DO [address] [place] [address] PCP - General Family Medicine 10/28/14 Deburring Technician Relationship Specialty Start Date End Date Luis Norwood, DO [address] [place] [address] PCP - General Family Medicine 10/28/14 Deburring Technician Relationship Specialty Start Date End Date Luis Norwood, DO [address] [place] [address] PCP - General Family Medicine 10/28/14 Deburring Technician Relationship Specialty Start Date End Date Luis Norwood, DO [address] [place] [address] PCP - General Family Medicine 10/28/14 Deburring Technician Relationship Specialty Start Date End Date Luis Norwood, DO [address] [place] [address] PCP - General Family Medicine 10/28/14 Deburring Technician Relationship Specialty Start Date End Date Luis Norwood, DO [address] [place] [address] PCP - General Family Medicine 10/28/14 Deburring Technician Relationship Specialty Start Date End Date Luis Norwood, DO [address] [place] [address] PCP - General Family Medicine 10/28/14 Deburring Technician Relationship Specialty Start Date End Date Luis Norwood DO [address] [place] [address] PCP - General Family Medicine 10/28/14 Deburring Technician Relationship Specialty Start Date End Date Luis Norwood DO [address] [place] [address] PCP - General Family Medicine 10/28/14 Deburring Technician Relationship Specialty Start Date End Date Luis Norwood DO [address] [place] [address] PCP - General Family Medicine 10/28/14 Deburring Technician Relationship Specialty Start Date End Date Luis Norwood DO [address] [place] [address] PCP - General Family Medicine 10/28/14 Deburring Technician Relationship Specialty Start Date End Date Luis Norwood, [address] [place] [address] PCP - General Family Medicine 10/28/14 Deburring Technician Relationship Specialty Start Date End Date Luis Norwood DO [address] [place] [address] PCP - General Family Medicine 10/28/14 Deburring Technician Relationship Specialty Start Date End Date Luis Norwood DO [address] [place] [address] PCP - General Family Medicine 10/28/14 Deburring Technician Relationship Specialty Start Date End Date Luis Norwood DO [address] [place] [address] PCP - General Family Medicine 10/28/14 Deburring Technician Relationship Specialty Start Date End Date Luis Norwood DO [address] [place] [address] PCP - General Family Medicine 10/28/14 Deburring Technician Relationship Specialty Start Date End Date Luis Norwood DO [address] [place] [address] PCP - General Family Medicine 10/28/14 Deburring Technician Relationship Specialty Start Date End Date Luis Norwood DO [address] [place] [address] PCP - General Family Medicine 10/28/14 Deburring Technician Relationship Specialty Start Date End Date Luis Norwood DO [address] [place] [address] PCP - General Family Medicine 10/28/14 Deburring Technician Relationship Specialty Start Date End Date Luis Norwood DO [address] [place] [address] PCP - General Family Medicine 10/28/14 Team Status: Active Member Role Status Dates Dr. Luis Norwood DO Primary Care Provider Active Team Status: Inactive Member Role Status Dates Dr. Luis Norwood DO Primary Care Provider Active Start: November 13, 2024 End: November 13, 2024 Dr. Vasiliy Diaz MD Attending Provider Active Start: November 13, 2024 End: November 13, 2024 Dr. Vasiliy Diaz MD Referring Provider Active Start: November 13, 2024 End: November 13, 2024 Team Status: Inactive Member Role Status Dates Dr. Luis Norwood DO Primary Care Provider Active Start: November 13, 2024 End: November 13, 2024 Dr. Luis Norwood DO Referring Provider Active Start: November 13, 2024 End: November 13, 2024 Dr. Vasiliy Diaz MD Attending Provider Active Start: November 13, 2024 End: November 13, 2024 Team Status: Inactive Member Role Status Dates Dr. Luis Norwood DO Primary Care Provider Active Start: December 28, 2024 End: December 28, 2024 Dr. Vasiliy Diaz MD Attending Provider Active Start: December 28, 2024 End: December 28, 2024 Dr. Vasiliy Diaz MD Referring Provider Active Start: December 28, 2024 End: December 28, 2024 Team Status: Inactive Member Role Status Dates Dr. Luis Norwood , DO Primary Care Provider Active Start: February 07, 2025 End: February 07, 2025 Dr. uLis Norwood DO Referring Provider Active Start: February 07, 2025 End: February 07, 2025 Dr. Vasiliy Diaz MD Attending Provider Active Start: February 07, 2025 End: February 07, 2025 Deburring Technician Relationship Specialty Start Date End Date Luis Norwood DO [address] [place], [place] [address] PCP - General Family Medicine 10/28/14 [facility], SOCIOCULTURAL ANTHROPOLOGY PROFESSOR.HOPPER FEEDER [address] [place], [place] [address] [facility] 09/02/24 Fatuma Narvaez, SOCIOCULTURAL ANTHROPOLOGY PROFESSOR.HOPPER FEEDER [address] [place], [place] [address] [facility] 03/11/25 Deburring Technician Relationship Specialty Start Date End Date Luis Norwood DO [address] [place] [address] PCP - [facility] Medicine 10/28/14 [facility], SOCIOCULTURAL ANTHROPOLOGY PROFESSOR.HOPPER FEEDER [address] [place], [place] [address] [facility] 09/02/24 Fatuma Narvaez, SOCIOCULTURAL ANTHROPOLOGY PROFESSOR.HOPPER FEEDER [address] [place], [place] [address] [facility] 03/11/25 Goals (unrecognized section and content) Goals may be documented in a n alternate sectionGoals may be documented in an alternate sectionGoals may be documented in an alternate section (unrecognized sect ion and content) No Status Records FoundNo Status Records FoundNo Status Records Found INFORMATION SOURCE (unrecogn ized section and content) DATE CREATED AUTHOR 11/12/2023 [facility] DATE CREATED AUTHOR AUTHOR'S ORGANIZ ATION 02/09/2025 [facility] DATE CREATED AUTHOR AUTHOR'S ORGANIZ ATION 04/17/2025 [facility] FOR RECORDS PERTAINING TO PATIENTS WHO ARE OR HAVE BEEN ENROLLED IN A CHEMICAL DEPENDENCY/SUBSTANCEABUSE PROGRAM, SOME INFORMATION MAY BE OMITTED. This clinical summary was aggregated from multiple sources. Caution should be exercised in using it in the provision of clinical care. This summary normalizes information from multiple sources, and as a consequence, information in this document may materially change the coding, format and clinical context of patient data. In addition, data may be omitted in some cases. CLINICAL DECISIONS SHOULD BE BASED ON THE PRIMARY CLINICAL RECORDS. [employer] provides no warranty or guarantee of the accuracy or completeness of information in this document.
[2025-08-05 18:24] LABS: Ammonia 13.7 umol/L (16-60); Valproic Acid (Depakene) Level 90 ug/mL (50-100)
== END | disposition home or self-care (01) ==
LOC: MTLAB 14:18
PROVIDERS: PCP Student in an Organized Health Care Education/Training Program; Referring Provider Psychiatry & Neurology Neurology; Visit Provider Psychiatry & Neurology Neurology
DX: G40.909 Epilepsy, unspecified, not intractable, without status epilepticus (principal)
CPT/HCPCS: 36415; 80053; 80164; 82140; 85027